=== PATIENT | female | born 1935 | race American Indian/Alaskan Native ===

== ENCOUNTER 2016-04-27 15:00 | Emergency (ER) | payer MEDICARE ==
[2016-04-27] MEDS ORDERED: TYLENOL PO ONE (20:16)
--- NOTE | 2016-04-27 20:28 | Emergency Department Report ---
ED Extremity Problem HPI - General Chief complaint: Extremity Problem,Nontraumatic Stated complaint: RT LEG PAIN Time Seen by Provider: 04/27/16 20:10 Source: patient Mode of arrival: Wheelchair Limitations: No Limitations - History of Present Illness Initial comments: 80-year-old female past medical history hypertension presents with complaint of 2 weeks of worsening right knee pain and right ankle pain. Patient states she had fall last week. Patient is ambulatory but states that her right ankle is bothering her and her right knee is bothering her as she walks. Denies any fever or chills no nausea no vomiting no lacerations. Patient is awake alert and oriented 3 ambulating with her cane without any assistance only complaining of mild to moderate pain in her right lower extremity knee and ankle joints. Patient states she has not been taking anything for pain MD Complaint: extremity pain Onset/Timin -: week(s) Location: right, lower extremity History of Same: No -: Yes myalgia Severity scale (0 -10): 6 Quality: aching Consistency: constant Associated Symptoms: denies other symptoms - Related Data Previous Rx's Medication Instructions Recorded Last Taken Type Docusate Sodium [Colace] 100 mg PO BID PRN #60 capsule 04/29/13 Unknown Rx HYDROcodone/APAP 5-325 [[place] 1 - 2 each PO Q6HR PRN #15 tablet 04/29/13 Unknown Rx 5/325 mg] Starch 51%(Nf) [Anusol] 1 each [place] BID PRN #10 supp.rect 04/29/13 Unknown Rx Acetaminophen [Acetaminophen TAB] 500 mg PO Q6HR PRN #30 tablet 04/27/16 Unknown Rx Allergies Allergy/AdvReac Type Severity Reaction Status Date / Time No Known Allergies Allergy Unverified 04/29/13 10:18 ED Review of Systems ROS: Stated complaint: RT LEG PAIN Other details as noted in HPI Constitutional: denies: chills, fever Eyes: denies: eye pain, eye discharge, vision change ENT: denies: ear pain, throat pain Respiratory: denies: cough, shortness of breath, wheezing Cardiovascular: denies: chest pain, palpitations Endocrine: no symptoms reported Gastrointestinal: denies: abdominal pain, nausea, diarrhea Genitourinary: denies: urgency, dysuria, discharge Musculoskeletal: as per HPI, arthralgia. denies: back pain, joint swelling Skin: denies: rash, lesions Neurological: denies: headache, weakness, paresthesias Psychiatric: denies: anxiety, depression Hematological/Lymphatic: denies: easy bleeding, easy bruising ED Past Medical Hx - Past Medical History Hx Hypertension: Yes Hx CVA: Yes Hx Diabetes: Yes Hx Arthritis: Yes Additional medical history: high cholesterol. CAD - Surgical History Hx Coronary Stent: Yes Hx Breast Surgery: Yes (right mastectomy) Additional Surgical History: hysterectomy - Social History Smoking Status: Former Smoker Substance Use Type: None - Medications Home Medications: Home Medications Medication Instructions Recorded Confirmed Last Taken Type Docusate Sodium [Colace] 100 mg PO BID PRN #60 capsule 04/29/13 Unknown Rx HYDROcodone/APAP 5-325 [[place] 1 - 2 each PO Q6HR PRN #15 tablet 04/29/13 Unknown Rx 5/325 mg] Starch 51%(Nf) [Anusol] 1 each [place] BID PRN #10 supp.rect 04/29/13 Unknown Rx Acetaminophen [Acetaminophen TAB] 500 mg PO Q6HR PRN #30 tablet 04/27/16 Unknown Rx ED Physical Exam - General Limitations: No Limitations General appearance: alert, in no apparent distress - Head Head exam: Present: atraumatic, normocephalic - Eye Eye exam: Present: normal appearance, PERRL, EOMI - ENT ENT exam: Present: mucous membranes moist - Neck Neck exam: Present: normal inspection - Respiratory Respiratory exam: Present: normal lung sounds bilaterally. Absent: respiratory distress - Cardiovascular Cardiovascular Exam: Present: regular rate, normal rhythm. Absent: systolic murmur, diastolic murmur, rubs, gallop - GI/Abdominal GI/Abdominal exam: Present: soft, normal bowel sounds - Extremities Exam Extremities exam: Present: normal inspection - Expanded Lower Extremity Exam Right Hip exam: Present: normal inspection, full ROM Upper Leg exam: Present: normal inspection, full ROM Knee exam: Present: normal inspection, full ROM (active and passive range of motion right knee fully intact flexion and extension and against resistance him and no erythema knee joint) Lower Leg exam: Present: normal inspection, full ROM Ankle exam: Present: normal inspection, full ROM Foot/Toe exam: Present: normal inspection, full ROM Gait: Positive: observed and normal - Back Exam Back exam: Present: normal inspection - Neurological Exam Neurological exam: Present: alert, oriented X3, CN II-XII intact, normal gait - Psychiatric Psychiatric exam: Present: normal affect, normal mood - Skin Skin exam: Present: warm, dry, intact, normal color. Absent: rash ED Course Vital Signs 04/27/16 16:04 Temperature 98.9 F Pulse Rate 87 Respiratory 20 Rate Blood Pressure 113/89 O2 Sat by Pulse 98 Oximetry ED Medical Decision Making - Medical Decision Making A/P: Right lower extremity pain knee and ankle, musculoskeletal pain 1-patient is fully ambulatory without assistance, using cane with minimal to no difficulty. No clinical signs of septic joint or gout no joint erythema range of motion active and passive fully intact all joints right lower extremity, no neurovascular compromise no signs of cellulitis, no pitting or peripheral edema or PVD ulcers visible on exam. Range of motion right ankle knee hip joint fully intact. Distal dorsalis pedis and posterior tibial pulses intact, distal sensation 2 point discrimination light touch fully intact. 2-Tylenol 500 mg when necessary for pain 3-follow up with primary care doctor and orthopedics 4-advised patient to return to the ED if she develops any fever or chills and ability to range her joints or severe difficulty ambulating, patient is ambulating well without assistance 5- x-rays reviewed with Dr. Trujillo, some osteoarthritic changes and right knee and ankle joint but no visible fractures Critical care attestation.: If time is entered above; I have spent that time in minutes in the direct care of this critically ill patient, excluding procedure time. ED Disposition Clinical Impression: Osteoarthritis Qualifiers: Osteoarthritis location: knee Osteoarthritis type: unspecified Laterality: right Qualified Code(s): M17.9 - Osteoarthritis of knee, unspecified Musculoskeletal leg pain Qualifiers: Laterality: right Qualified Code(s): M79.604 - Pain in right leg Disposition: DISCHARGED TO HOME OR SELFCARE Is pt being admited?: No Does the pt Need Aspirin: No Condition: Stable Instructions: Arthralgia (ED), Osteoarthritis (ED), Musculoskeletal Pain (ED) Prescriptions: Acetaminophen [Acetaminophen TAB] 500 mg PO Q6HR PRN #30 tablet PRN Reason: Pain Referrals: PRIMARY CARE, [Primary Care Provider] - 3-5 Days Time of Disposition: 21:17
[2016-04-27 22:00] VITALS: BP 110/88
--- NOTE | 2016-04-28 09:28 | XRay Report ---
RIGHT KNEE RADIOGRAPHS INDICATION: Knee pain, status post fall. COMPARISON: None similar. FINDINGS: AP and lateral right knee radiographs suggest degenerative spurring involving the medial and patellofemoral compartments as also some medial compartment narrowing. Intact overall articulation. Superior and inferior patellar spurring and enthesophytes as well. No large suprapatellar effusion. Some atherosclerotic calcifications. CONCLUSION: Right knee degenerative changes without acute bony abnormality, as described. Thank you for the opportunity to participate in this patient's care.
--- NOTE | 2016-04-28 09:43 | XRay Report ---
RIGHT ANKLE, 2 VIEWS: HISTORY: Ankle pain after fall. FINDINGS: Bone mineralization is within normal limits. No acute osseous findings or joint pathology is identified. There is mild diffuse soft tissue swelling. IMPRESSION: Soft tissue swelling. No acute osseous injury is detected.
== END 2016-04-27 22:05 | disposition home or self-care (01) ==
LOC: ED 15:00
DX: M17.9 Osteoarthritis of knee, unspecified (principal); M79.604 Pain in right leg; I10 Essential (primary) hypertension; E11.9 Type 2 diabetes mellitus without complications; M19.90 Unspecified osteoarthritis, unspecified site; E78.00 Pure hypercholesterolemia, unspecified; Z86.73 Personal history of transient ischemic attack (TIA), and cerebral infarction without residual deficits; I25.10 Atherosclerotic heart disease of native coronary artery without angina pectoris; Z90.710 Acquired absence of both cervix and uterus; Z90.89 Acquired absence of other organs; Z87.891 Personal history of nicotine dependence

== ENCOUNTER 2016-05-21 14:40 | Emergency (ER) | payer MEDICARE ==
[2016-05-22 02:52] LABS: Basophils % (Auto) 0.2 % (0.0-1.8); Eosinophils % (Auto) 1.1 % (0.0-4.3); Hematocrit 41.2 % (30.3-42.9); Hemoglobin 13.8 gm/dl (10.1-14.3); Mean Corpuscular HGB Conc 33 % (30-34); Mean Corpuscular Hemoglobin 32 pg (28-32); Mean Corpuscular Volume 95 fl (79-97); Platelet Count 180 K/mm3 (140-440); Red Blood Count 4.34 M/mm3 (3.65-5.03); Red Cell Distribution Width 12.8 % (13.2-15.2); White Blood Count 7.1 K/mm3 (4.5-11.0)
[2016-05-22 03:12] LABS: Anion Gap 17 mmol/L; BUN/Creatinine Ratio 16.25; Blood Urea Nitrogen 13 mg/dL (7-17); Calcium 9.5 mg/dL (8.4-10.2); Carbon Dioxide 26 mmol/L (22-30); Chloride 96.9 mmol/L (98-107); Glucose 114 mg/dL (65-100); Potassium 3.2 mmol/L (3.6-5.0); Sodium 137 mmol/L (137-145)
[2016-05-22] MEDS ORDERED: K-DUR PO ONE (03:37)
--- NOTE | 2016-05-22 03:38 | Cat Scan Report ---
FINAL REPORT PROCEDURE: CT HEAD/BRAIN WO CON TECHNIQUE: Computerized tomography of the head was performed without contrast material. HISTORY: tremor COMPARISON: No prior studies are available for comparison. FINDINGS: Skull and scalp: Normal. Paranasal sinuses: Normal. Ventricles and subarachnoid spaces: Normal. Cerebrum: No evidence of hemorrhage, acute infarction or mass . Cerebellum and brainstem: No evidence of hemorrhage, acute infarction or mass. Vasculature: Normal. Comments: None. IMPRESSION: There is no evidence of an acute intracranial process
[2016-05-22] MEDS ORDERED: ATIVAN PO ONE (03:59)
--- NOTE | 2016-05-22 03:59 | Emergency Department Report ---
ED General Adult HPI - General Chief complaint: Dizziness Stated complaint: SHAKING AND SWEATING Time Seen by Provider: 05/22/16 01:51 Source: patient Mode of arrival: Ambulatory Limitations: No Limitations - History of Present Illness Initial comments: 80 year old female the past medical history of CVA, arthritis, right mastectomy for breast cancer, diabetes, CAD, hypertension, and elevated cholesterol presents to the hospital complaints of shaking since last night. Patient having tremors and feeling lightheaded. Patient seems to think it is due to tramadol which began taking on May 03 for new diagnosis of arthritis. Patient states she has taken tramadol in the past without the side effects. She complains of generalized arthralgias rate is 7/10 in intensity. No complaints of chest pain, shortness of breath, nausea, vomiting, diarrhea, or abdominal pain. She denies family history of any movement disorders. Severity scale (0 -10): 3 - Related Data Previous Rx's Medication Instructions Recorded Last Taken Type Docusate Sodium [Colace] 100 mg PO BID PRN #60 capsule 04/29/13 Unknown Rx [place] 51%(Nf) [Anusol] 1 each [place] BID PRN #10 supp.rect 04/29/13 Unknown Rx Acetaminophen [Acetaminophen TAB] 500 mg PO Q6HR PRN #30 tablet 04/27/16 Unknown Rx HYDROcodone/APAP 5-325 [[place] 1 each PO Q6HR PRN #15 tablet 05/22/16 Unknown Rx 5-325 mg TAB] Potassium Chloride [K-Dur] 20 meq PO QDAY #4 tablet 05/22/16 Unknown Rx Allergies Allergy/AdvReac Type Severity Reaction Status Date / Time No Known Allergies Allergy Verified 05/21/16 15:08 ED Review of Systems ROS: Stated complaint: SHAKING AND SWEATING Other details as noted in HPI Comment: All other systems reviewed and negative Other: Constitutional: No fevers chills Eyes: No eye pain visual changes ENT: No ear pain or throat pain Neck: Denies pain Respiratory: Denies cough wheezing Cardiovascular: Denies chest pain, palpitations, syncope GI: Denies abdominal pain, nausea, vomiting, diarrhea : Denies dysuria Musculoskeletal: Denies back pain Skin: Denies rash, lesions, erythema Neurologic: Denies headache, numbness, weakness Psychiatric: Denies suicidal ideation, hallucinations ED Past Medical Hx - Past Medical History Hx Hypertension: Yes Hx CVA: Yes Hx Diabetes: Yes Hx of Cancer: Yes Hx Arthritis: Yes Additional medical history: high cholesterol. CAD - Surgical History Hx Coronary Stent: Yes Hx Breast Surgery: Yes (right mastectomy) Additional Surgical History: hysterectomy - Social History Smoking Status: Never Smoker Substance Use Type: None - Medications Home Medications: Home Medications Medication Instructions Recorded Confirmed Last Taken Type Docusate Sodium [Colace] 100 mg PO BID PRN #60 capsule 04/29/13 Unknown Rx [place] 51%(Nf) [Anusol] 1 each [place] BID PRN #10 supp.rect 04/29/13 Unknown Rx Acetaminophen [Acetaminophen TAB] 500 mg PO Q6HR PRN #30 tablet 04/27/16 Unknown Rx HYDROcodone/APAP 5-325 [[place] 1 each PO Q6HR PRN #15 tablet 05/22/16 Unknown Rx 5-325 mg TAB] Potassium Chloride [K-Dur] 20 meq PO QDAY #4 tablet 05/22/16 Unknown Rx ED Physical Exam - General Limitations: No Limitations - Other Other exam information: General: No limitations, patient is alert in no acute distress Head exam: Atraumatic, normocephalic Eyes exam: Normal appearance ENT: Moist mucous membrane, normal oropharynx Neck exam: Normal inspection, full range of motion, no meningismus nontender Respiratory exam: Clear to auscultation bilateral, no wheezes, rales, crackles Cardiovascular: Normal rate and rhythm, normal heart sounds Abdomen: Soft, nondistended, and nontender, with normal bowel sounds, no rebound, or guarding Extremity: Full range of motion normal inspection no deformity Back: Normal Inspection, full range of motion, no tenderness Neurologic: Alert, oriented x3, cranial nerves intact, no motor or sensory deficit. Patient has a mild hand tremor with her arms extended. Patient also has worsening tremor with [id number] function left greater than right. Psychiatric: normal affect, normal mood Skin: Warm, dry, intact ED Course Vital Signs 05/21/16 05/22/16 15:08 01:35 Temperature 98.4 F 99.2 F Pulse Rate 94 H 88 Respiratory 18 20 Rate Blood Pressure 136/85 Blood Pressure 158/94 [Left] O2 Sat by Pulse 100 98 Oximetry - Reevaluation(s) Reevaluation #1: 05/22/16 04:04 Patient declined offer for pain medication because she is afraid of possible side effects. Patient appears stable. Requesting medication for the tremor because she still feels like she shaking. Ativan 0.5 mg ordered and by mouth potassium for mild hypokalemia Reevaluation #2: 05/22/16 05:52 Patient reports feeling better after receiving Ativan and reports decrease in her tremor ED Medical Decision Making - Lab Data Result diagrams: 05/22/16 02:44 05/22/16 02:44 Lab Results 05/22/16 05/22/16 05/22/16 Range/Units 02:41 02:44 02:44 WBC 7.1 (4.5-11.0) K/mm3 RBC 4.34 (3.65-5.03) M/mm3 Hgb 13.8 (10.1-14.3) gm/dl Hct 41.2 (30.3-42.9) % MCV 95 (79-97) fl MCH 32 (28-32) pg MCHC 33 (30-34) % RDW 12.8 L (13.2-15.2) % Plt Count 180 (140-440) K/mm3 Lymph % (Auto) 20.1 (13.4-35.0) % [place] % (Auto) 8.8 H (0.0-7.3) % Eos % (Auto) 1.1 (0.0-4.3) % Baso % (Auto) 0.2 (0.0-1.8) % Lymph # 1.4 (1.2-5.4) K/mm3 [place] # 0.6 (0.0-0.8) K/mm3 Eos # 0.1 (0.0-0.4) K/mm3 Baso # 0.0 (0.0-0.1) K/mm3 Seg Neutrophils % 69.8 (40.0-70.0) % Seg Neutrophils # 4.9 (1.8-7.7) K/mm3 Sodium 137 (137-145) mmol/L Potassium 3.2 L (3.6-5.0) mmol/L Chloride 96.9 L (98-107) mmol/L Carbon Dioxide 26 (22-30) mmol/L Anion Gap 17 mmol/L BUN 13 (7-17) mg/dL Creatinine 0.8 (0.7-1.2) mg/dL Estimated GFR > 60 ml/min BUN/Creatinine Ratio 16.25 % Glucose 114 H (65-100) mg/dL POC Glucose 102 (70-105) Calcium 9.5 (8.4-10.2) mg/dL Magnesium 2.0 (1.7-2.3) mg/dL - EKG Data -: EKG Interpreted by Me (sinus rate 90, left bundle branch, LAD, left atrial enlargement) - EKG Data When compared to previous EKG there are: changes noted (07/15/2011 no left bundle at that time ) - Medical Decision Making Plan to discharge patient home with instructions to discontinue the tramadol. She will also receive several days of potassium supplementation for mild hypokalemia. PMD and neurology follow-up will be encouraged to rule out movement disorder and to evaluate his symptoms after discontinuing and tramadol. - Differential Diagnosis electrolyte abnormality, movement disorder, CVA, medication reaction Critical Care Time: No Critical care attestation.: If time is entered above; I have spent that time in minutes in the direct care of this critically ill patient, excluding procedure time. ED Disposition Clinical Impression: Tremor, Medication reaction, Hypokalemia Disposition: DISCHARGED TO HOME OR SELFCARE Is pt being admited?: No Does the pt Need Aspirin: No Condition: Stable Instructions: Hypokalemia (ED), Adverse Drug Reaction (ED) Additional Instructions: Stop the tramadol. Take the hydrocodone prescribed as needed for pain. Most common side effects of [place] are drowsiness and constipation. Take stool softeners as needed. Do not drive while taking this medication. Your potassium was low today. Take the potassium tablets as prescribed and you may take a banana a day to help keep your potassium at normal level. Follow-up with the physician and the neurologist provided for further workup and evaluation to rule out movement disorder. Prescriptions: HYDROcodone/APAP 5-325 [[place] 5-325 mg TAB] 1 each PO Q6HR PRN #15 tablet PRN Reason: Pain Potassium Chloride [K-Dur] 20 meq PO QDAY #4 tablet Referrals: PRIMARY CARE, [Primary Care Provider] - 2-3 Days [facility] MD [Staff Physician] - 3-5 Days (Neurologist) Time of Disposition: 05:53
[2016-05-22 06:58] VITALS: BP 126/86
== END 2016-05-22 07:00 | disposition home or self-care (01) ==
LOC: ED 14:40
DX: E87.6 Hypokalemia (principal); R25.1 Tremor, unspecified; I10 Essential (primary) hypertension; I63.9 Cerebral infarction, unspecified; E11.9 Type 2 diabetes mellitus without complications; M19.90 Unspecified osteoarthritis, unspecified site; E78.00 Pure hypercholesterolemia, unspecified; I25.10 Atherosclerotic heart disease of native coronary artery without angina pectoris; Z90.11 Acquired absence of right breast and nipple; Z85.9 Personal history of malignant neoplasm, unspecified
CPT/HCPCS: 36415; 70450; 80048; 82962; 83735; 85025; 93005; 93010

== ENCOUNTER 2017-10-01 16:51 | Emergency (ER) | payer MEDICARE ==
[2017-10-01 17:15] VITALS: BP 106/56
--- NOTE | 2017-10-01 23:03 | Emergency Department Report ---
ED Fall HPI - General Chief Complaint: Neck Pain/Injury Stated Complaint: NECK PAIN Time Seen by Provider: 10/01/17 22:49 Source: patient Mode of arrival: Ambulatory - History of Present Illness Initial Comments: Patient is a 51 years old female with history of coronary artery disease. Patient presented to the ER complaining of neck pain and bilateral knee pain and also right ankle pain. Patient stated that she fell 2 weeks ago while she is coming from her garage, tripped, landed on her knees. Patient denied any loss of consciousness at that time. She stated that she did not have any pain at that time bet for the last 4-5 days she started having pain in her neck bilateral knees and right ankle. Patient denied any weakness numbness or tingling sensation. No bowel or bladder incontinence. Patient denied any chest pain. MD Complaint: fall -: Sudden Fall From: standing When Fall Occurred: other (2 weeks ago) Fall Witnessed: no Place Fall Occurred: home Loss of Consciousness: none Prolonged Down Time?: no Symptoms Prior to Fall: none Location: neck Location - Extremities: Left: Knee, Right: Knee, Ankle Severity: moderate Severity scale (0 -10): 4 Quality: sharp Context: tripped/slipped Associated Symptoms: neck pain. denies: headache, numbness, weakness, chest paint, shortness of breath, abdominal pain, hematuria, unable to walk, lightheaded, vertigo, confusion - Related Data Home Medications Medication Instructions Recorded Confirmed Last Taken Gabapentin [Neurontin] 300 mg PO TID 10/31/16 11/01/16 1 Day Ago ~10/31/16 Previous Rx's Medication Instructions Recorded Last Taken Type Docusate Sodium [Colace CAP] 100 mg PO BID PRN #60 capsule 04/29/13 1 Day Ago Rx ~10/30/16 Aspirin EC [Aspirin Enteric Coated 81 mg PO QDAY #30 tablet 11/03/16 Unknown Rx TAB] AtorvaSTATin [Lipitor] 80 mg PO QHS #30 tablet 11/03/16 Unknown Rx Clopidogrel [Plavix] 75 mg PO QDAY #30 tablet 11/03/16 Unknown Rx Furosemide [Lasix] 20 mg PO QDAY #30 tablet 11/03/16 Unknown Rx ISOSORBIDE MONOnitrate [Imdur ER] 30 mg PO QDAY #30 tablet 11/03/16 Unknown Rx Lisinopril [Zestril TAB] 2.5 mg PO QDAY #30 tablet 11/03/16 Unknown Rx Metoprolol Xl [Metoprolol 50 mg PO QDAY #30 tablet 11/03/16 Unknown Rx SUCCINATE ER TAB] Allergies Allergy/AdvReac Type Severity Reaction Status Date / Time No Known Allergies Allergy Verified 10/01/17 17:09 ED Review of Systems ROS: Stated complaint: NECK PAIN Other details as noted in HPI Comment: All other systems reviewed and negative Constitutional: denies: chills, fever Respiratory: denies: cough, orthopnea, shortness of breath, SOB with exertion Cardiovascular: denies: chest pain, palpitations Gastrointestinal: denies: abdominal pain, nausea, vomiting, diarrhea, constipation, hematemesis, hematochezia Musculoskeletal: denies: back pain Neurological: denies: headache, weakness, numbness, paresthesias, confusion, abnormal gait, vertigo ED Past Medical Hx - Past Medical History Hx Hypertension: Yes Hx CVA: Yes Hx Congestive Heart Failure: Yes Hx Diabetes: Yes Hx Arthritis: Yes Additional medical history: high cholesterol. CAD - Surgical History Hx Coronary Stent: Yes Hx Breast Surgery: Yes (right mastectomy) Additional Surgical History: hysterectomy - Social History Smoking Status: Former Smoker - Medications Home Medications: Home Medications Medication Instructions Recorded Confirmed Last Taken Type Docusate Sodium [Colace CAP] 100 mg PO BID PRN #60 capsule 04/29/13 10/31/16 1 Day Ago Rx ~10/30/16 Gabapentin [Neurontin] 300 mg PO TID 10/31/16 11/01/16 1 Day Ago History ~10/31/16 Aspirin EC [Aspirin Enteric Coated 81 mg PO QDAY #30 tablet 11/03/16 Unknown Rx TAB] AtorvaSTATin [Lipitor] 80 mg PO QHS #30 tablet 11/03/16 Unknown Rx Clopidogrel [Plavix] 75 mg PO QDAY #30 tablet 11/03/16 Unknown Rx Furosemide [Lasix] 20 mg PO QDAY #30 tablet 11/03/16 Unknown Rx ISOSORBIDE MONOnitrate [Imdur ER] 30 mg PO QDAY #30 tablet 11/03/16 Unknown Rx Lisinopril [Zestril TAB] 2.5 mg PO QDAY #30 tablet 11/03/16 Unknown Rx Metoprolol Xl [Metoprolol 50 mg PO QDAY #30 tablet 11/03/16 Unknown Rx SUCCINATE ER TAB] ED Physical Exam - General Limitations: No Limitations General appearance: alert, in no apparent distress - Head Head exam: Present: atraumatic, normocephalic, normal inspection - Eye Eye exam: Present: normal appearance - ENT ENT exam: Present: normal exam, normal orophraynx, mucous membranes moist - Neck Neck exam: Present: normal inspection, full ROM. Absent: tenderness, meningismus, lymphadenopathy, thyromegaly - Respiratory Respiratory exam: Present: normal lung sounds bilaterally. Absent: respiratory distress, wheezes, rales, rhonchi, stridor, chest wall tenderness, accessory muscle use, decreased breath sounds, prolonged expiratory - Cardiovascular Cardiovascular Exam: Present: regular rate, normal rhythm, normal heart sounds - GI/Abdominal GI/Abdominal exam: Present: soft, normal bowel sounds. Absent: distended, tenderness, guarding, rebound, rigid, organomegaly, mass, bruit, pulsatile mass , hernia - Extremities Exam Extremities exam: Present: normal inspection, full ROM, normal capillary refill. Absent: tenderness, pedal edema, joint swelling, calf tenderness - Back Exam Back exam: Present: normal inspection. Absent: full ROM, tenderness, CVA tenderness (R), CVA tenderness (L), muscle spasm, paraspinal tenderness, vertebral tenderness, rash noted - Neurological Exam Neurological exam: Present: alert, oriented X3, CN II-XII intact, normal gait - Skin Skin exam: Present: warm, intact, normal color ED Course Vital Signs 10/01/17 17:09 Temperature 98.6 F Pulse Rate 83 Respiratory 20 Rate Blood Pressure 106/56 O2 Sat by Pulse 96 Oximetry ED Medical Decision Making - Radiology Data Radiology results: report reviewed Referring Physician: WILBERT HERNANDEZ Patient Name: TRE CORRIGAN Date of : 1935 Sex: Female Report Date: 2017-10-02 Report Status: Finalized Findings [facility] [address] [place] [address] Cat Scan Report Signed Patient: TRE CORRIGAN MR#: [id number] : 1935 Acct:[id number] Age/Sex: 82 / F ADM Date: 10/01/17 Loc: ED Attending Dr: Ordering Physician: WILBERT HERNANDEZ Date of Service: 10/01/17 Procedure(s): CT cervical spine wo con Accession Number(s): [id number] cc: WILBERT HERNANDEZ FINAL REPORT EXAM: CT CERVICAL SPINE WO CON HISTORY: NECK INJURY TECHNIQUE: CT evaluation was performed of the cervical spine without the use of intravenous contrast administration. Coronal and sagittal imaging also provided for interpretation. PRIORS: None. FINDINGS: Spinal alignment: There is mild anterolisthesis of C3 relative to C4 and loss of the usual cervical lordosis. Multilevel advanced cervical degenerative changes are present with bridging osteophytes anteriorly at C2-C3 and bulky osteophytes at C4-C5, C5-C6 and C6-C7. There is additional mild calcification of the posterior longitudinal ligament at C5-C6 vertebral level. Posterior elements are intact noting multilevel degenerative changes. 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 Atherosclerotic vascular calcifications within carotid and vertebral arteries. Probable left hemithyroidectomy changes. Small cystic changes are noted in the right thyroid gland. There is no prevertebral soft tissue swelling or pathologic fluid collection. IMPRESSION: No identified acute fracture is or dislocation. No significant prevertebral soft tissue swelling. Multilevel advanced degenerative changes throughout the cervical spine, detailed above. Transcribed By: DT Dictated By: SABA ESQUIVEL DO Electronically Authenticated By: SABA ESQUIVEL DO Signed Date/Time: 10/02/17 001 Referring Physician: WILBERT HERNANDEZ Patient Name: TRE CORRIGAN Date of : 1935 Sex: Female Report Date: 2017-10-02 Report Status: Finalized Findings [facility] [address] [place] [address] XRay Report Signed Patient: TRE CORRIGAN MR#: [id number] : 1935 Acct:[id number] Age/Sex: 82 / F ADM Date: 10/01/17 Loc: ED Attending Dr: Ordering Physician: WILBERT HERNANDEZ Date of Service: 10/01/17 Procedure(s): XR knee BILAT 3V Accession Number(s): [id number] cc: WILBERT HERNANDEZ Fluoro Time In Minutes: FINAL REPORT EXAM: XR KNEE BILAT 3V HISTORY: BILAT KNEE PAIN POST FALL TECHNIQUE: Six views of bilateral knees: AP, oblique and lateral projections. PRIORS: None. FINDINGS: Right knee: No acute fracture or dislocation. Mild, tricompartment degenerative changes evidenced by marginal osteophytes. There is no significant joint effusion. Atherosclerotic vascular calcifications are present. Left knee: There is no acute fracture or dislocation. Mild, tricompartment degenerative changes are noted. There is no significant joint effusion. Small suprapatellar enthesophytes are noted. Atherosclerotic vascular calcifications are present. IMPRESSION: No acute osseous abnormality involving either knee. Mild, tricompartment degenerative changes of bilateral knees. Atherosclerotic vascular calcifications. Transcribed By: DT Dictated By: SABA ESQUIVEL DO Electronically Authenticated By: SABA ESQUIVEL DO Signed Date/Time: 10/02/17 0000 DD/ 0000 TD/TT: 10/02/17 0000 DD/ 0016 TD/TT: 10/02/17 0016 Referring Physician: WILBERT HERNANDEZ Patient Name: TRE CORRIGAN Date of : 1935 Sex: Female Report Date: 2017-10-02 Report Status: Finalized Findings [facility] [address] [place] [address] XRay Report Signed Patient: TRE CORRIGAN MR#: [id number] : 1935 Acct:[id number] Age/Sex: 82 / F ADM Date: 10/01/17 Loc: ED Attending Dr: Ordering Physician: WILBERT HERNANDEZ Date of Service: 10/01/17 Procedure(s): XR ankle 3+V RT Accession Number(s): [id number] cc: WILBERT HERNANDEZ Fluoro Time In Minutes: FINAL REPORT EXAM: XR ANKLE 3+V RT HISTORY: RT ANKLE PAIN POST FALL TECHNIQUE: Three views of the right ankle: AP, oblique and lateral projections. PRIORS: None. FINDINGS: No discrete fracture line identified. There is mild bimalleolar soft tissue swelling. No large joint effusion. Moderate sized calcaneal enthesophytes (heel spurs). The ankle mortise appears congruent and there is no osteochondral injury of the talar dome. Atherosclerotic vascular calcifications are present. IMPRESSION: No acute fracture identified. Mild, bimalleolar soft tissue swelling. Atherosclerotic vascular calcifications. Transcribed By: DT Dictated By: SABA ESQUIVEL DO Electronically Authenticated By: SABA ESQUIVEL DO Signed Date/Time: 10/02/174 DD/ TD/TT: 10/02/174 Critical care attestation.: If time is entered above; I have spent that time in minutes in the direct care of this critically ill patient, excluding procedure time. ED Disposition Clinical Impression: Neck pain, Contusion, Fall Disposition: DC-01 TO HOME OR SELFCARE Is pt being admited?: No Condition: Stable Instructions: Fall Prevention (ED), Fall Prevention for Older Adults (ED), Contusion in Adults (ED) Referrals: PRIMARY CARE, [Primary Care Provider] - 3-5 Days
--- NOTE | 2017-10-02 00:05 | XRay Report ---
FINAL REPORT EXAM: XR KNEE BILAT 3V HISTORY: BILAT KNEE PAIN POST FALL TECHNIQUE: Six views of bilateral knees: AP, oblique and lateral projections. PRIORS: None. FINDINGS: Right knee: No acute fracture or dislocation. Mild, tricompartment degenerative changes evidenced by marginal osteophytes. There is no significant joint effusion. Atherosclerotic vascular calcifications are present. Left knee: There is no acute fracture or dislocation. Mild, tricompartment degenerative changes are noted. There is no significant joint effusion. Small suprapatellar enthesophytes are noted. Atherosclerotic vascular calcifications are present. IMPRESSION: No acute osseous abnormality involving either knee. Mild, tricompartment degenerative changes of bilateral knees. Atherosclerotic vascular calcifications.
--- NOTE | 2017-10-02 00:09 | XRay Report ---
FINAL REPORT EXAM: XR ANKLE 3+V RT HISTORY: RT ANKLE PAIN POST FALL TECHNIQUE: Three views of the right ankle: AP, oblique and lateral projections. PRIORS: None. FINDINGS: No discrete fracture line identified. There is mild bimalleolar soft tissue swelling. No large joint effusion. Moderate sized calcaneal enthesophytes (heel spurs). The ankle mortise appears congruent and there is no osteochondral injury of the talar dome. Atherosclerotic vascular calcifications are present. IMPRESSION: No acute fracture identified. Mild, bimalleolar soft tissue swelling. Atherosclerotic vascular calcifications.
--- NOTE | 2017-10-02 00:20 | Cat Scan Report ---
FINAL REPORT EXAM: CT CERVICAL SPINE WO CON HISTORY: NECK INJURY TECHNIQUE: CT evaluation was performed of the cervical spine without the use of intravenous contrast administration. Coronal and sagittal imaging also provided for interpretation. PRIORS: None. FINDINGS: Spinal alignment: There is mild anterolisthesis of C3 relative to C4 and loss of the usual cervical lordosis. Multilevel advanced cervical degenerative changes are present with bridging osteophytes anteriorly at C2-C3 and bulky osteophytes at C4-C5, C5-C6 and C6-C7. There is additional mild calcification of the posterior longitudinal ligament at C5-C6 vertebral level. Posterior elements are intact noting multilevel degenerative changes. 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 Atherosclerotic vascular calcifications within carotid and vertebral arteries. Probable left hemithyroidectomy changes. Small cystic changes are noted in the right thyroid gland. There is no prevertebral soft tissue swelling or pathologic fluid collection. IMPRESSION: No identified acute fracture is or dislocation. No significant prevertebral soft tissue swelling. Multilevel advanced degenerative changes throughout the cervical spine, detailed above.
== END 2017-10-02 00:35 | disposition home or self-care (01) ==
LOC: ED 16:51
DX: S10.93XA Contusion of unspecified part of neck, initial encounter (principal); M25.562 Pain in left knee; M25.561 Pain in right knee; M25.571 Pain in right ankle and joints of right foot; W01.0XXA Fall on same level from slipping, tripping and stumbling without subsequent striking against object, initial encounter; Y93.89 Activity, other specified; Y92.89 Other specified places as the place of occurrence of the external cause; Y99.8 Other external cause status
CPT/HCPCS: 72125; 99284

== ENCOUNTER 2020-01-03 12:15 | Emergency (ER) | payer MEDICARE ==
[2020-01-03] MEDS ORDERED: ASPIRIN 325 MG TAB PO ONE (12:27)
--- NOTE | 2020-01-03 13:35 | XRay Report ---
CHEST 1 VIEW 01/03/2020 1:11 PM INDICATION / CLINICAL INFORMATION: Chest Pain. COMPARISON: Chest one view from 09/12/2019. FINDINGS: SUPPORT DEVICES: None. HEART / MEDIASTINUM: Stable. LUNGS / PLEURA: The left hemidiaphragm is similarly elevated with probable mild left basilar atelecta sis versus scarring. The lungs are otherwise clear. No significant pleural effusion. No pneumothorax. ADDITIONAL FINDINGS: The bones are unchanged. IMPRESSION: 1. No acute abnormality of the chest or significant interval changes. Signer Name: Tushar Bae MD Signed: 01/03/2020 1:31 PM Workstation Name: [id number]
[2020-01-03 14:42] LABS: Basophils % (Auto) 0.2 % (0.0-1.8); Hematocrit 40.5 % (30.3-42.9); Hemoglobin 13.6 gm/dl (10.1-14.3); Lymphocytes # (Auto) 0.9 K/mm3 (1.2-5.4); Lymphocytes % (Auto) 22.7 % (13.4-35.0); Mean Corpuscular HGB Conc 34 % (30-34); Mean Corpuscular Volume 102 fl (79-97); Monocytes # (Auto) 0.3 K/mm3 (0.0-0.8); Monocytes % (Auto) 7.6 % (0.0-7.3); Platelet Count 178 K/mm3 (140-440); Red Blood Count 3.98 M/mm3 (3.65-5.03); Red Cell Distribution Width 13.2 % (13.2-15.2)
[2020-01-03 14:51] LABS: Blood Urea Nitrogen TNR mg/dL (7-17)
[2020-01-03 14:52] LABS: BUN/Creatinine Ratio TNR; Calcium TNR mg/dL (8.4-10.2)
[2020-01-03 16:57] LABS: BUN/Creatinine Ratio 14; Blood Urea Nitrogen 11 mg/dL (7-17); Calcium 9.5 mg/dL (8.4-10.2); Hemolysis Index 40
--- NOTE | 2020-01-03 18:02 | Emergency Department Report ---
ED Shortness of Breath HPI - General Chief Complaint: Dyspnea/Respdistress Stated Complaint: DIFFICULTY BREATHING Time Seen by Provider: 01/03/20 17:59 Source: patient Mode of arrival: Ambulatory Limitations: No Limitations - History of Present Illness Initial Comments: Ms. Cox is a pleasant 84-year-old F [place] female with a past medical history of congestive heart failure, DM, hypertension. Patient has a EF of 15 to 20% has AICD implanted. Patient is presenting with shortness of breath for the past 3 to 4 days. Patient states is intermittent but can last up to several hours at a time. Is accompanied with heavy sensation in the chest and she also has some pain when she takes a deep breath. She denies cough cold congestion fevers or chills. Patient states that she sometimes it is short of breath with exertion. She denies diaphoresis nausea vomiting or diarrhea. 09/13/19: Negative Lexiscan EKG but nondiagnostic left bundle. No significant stress-induced ischemia present. Dilated left ventricle was small mild fixed inferior lateral defect seen in the inferior lateral region. Normal perfusion anterior, apical, septal regions. Echo done 12/2018 showed EF 15-20%, mod LVH, grade I diastolic dysfunction, mod MR, mild TR, trace circumferential pericardial effusion. LHC done 10/2016 showed calcified, ostial stenosis of LAD 30-50%, EF 15-20%. Pt was recommended CT surgical assessment as outpatient, with a myocardial viabilit y study as prelude to possible surgical revascularization. It does not appear that pt was evaluated by CT surgery after that discharge. AMI r/o. Plan for lexiscan MPI stress test in AM. NPO after MN. Resume home cardiac regimen. Pt has h/o chronic HFrEF, no current clinical evidence of acutely decompensated HF. 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 She would like to address AICD candidacy as OP with her primary clinical specialist. - Related Data Home Medications Medication Instructions Recorded Confirmed Last Taken Gabapentin 300 mg PO TID 10/31/16 11/01/16 1 Day Ago ~10/31/16 Previous Rx's Medication Instructions Recorded Last Taken Type Docusate Sodium [Colace CAP] 100 mg PO BID PRN #60 capsule 04/29/13 1 Day Ago Rx ~10/30/16 Aspirin EC [Halfprin EC] 81 mg PO QDAY #30 tablet 11/03/16 Unknown Rx AtorvaSTATin [Lipitor] 80 mg PO QHS #30 tablet 11/03/16 Unknown Rx Clopidogrel [Plavix] 75 mg PO QDAY #30 tablet 11/03/16 Unknown Rx Furosemide [Lasix TAB] 20 mg PO QDAY #30 tablet 11/03/16 Unknown Rx ISOSORBIDE MONOnitrate [Imdur ER] 30 mg PO QDAY #30 tablet 11/03/16 Unknown Rx Ondansetron [Zofran ODT TAB] 4 mg PO Q8HR PRN #14 tab.rapdis 10/02/17 Unknown Rx traMADoL [Ultram 50 MG tab] 50 mg PO Q6HR PRN #14 tablet 10/02/17 Unknown Rx Nitroglycerin [Nitrostat] 0.4 mg SL .Q5MIN PRN #30 tablet 09/13/19 Unknown Rx Ranolazine [Ranexa] 500 mg PO BID #60 tab.er.12h 09/13/19 Unknown Rx Sacubitril/Valsartan [Entresto 24 1 each PO BID #60 tablet 09/13/19 Unknown Rx - 26 mg] carvediloL [Coreg] 3.125 mg PO BID #60 tablet 09/13/19 Unknown Rx Allergies Allergy/AdvReac Type Severity Reaction Status Date / Time No Known Allergies Allergy Verified 10/01/17 17:09 ED Review of Systems ROS: Stated complaint: DIFFICULTY BREATHING Other details as noted in HPI Comment: All other systems reviewed and negative ED Past Medical Hx - Past Medical History Hx Hypertension: Yes Hx CVA: Yes Hx Congestive Heart Failure: Yes Hx Diabetes: Yes Hx Arthritis: Yes Additional medical history: high cholesterol. CAD - Surgical History Hx Coronary Stent: Yes Hx Breast Surgery: Yes (right mastectomy) Additional Surgical History: hysterectomy - Social History Smoking Status: Never Smoker - Medications Home Medications: Home Medications Medication Instructions Recorded Confirmed Last Taken Type Docusate Sodium [Colace CAP] 100 mg PO BID PRN #60 capsule 04/29/13 10/31/16 1 Day Ago Rx ~10/30/16 Gabapentin 300 mg PO TID 10/31/16 11/01/16 1 Day Ago History ~10/31/16 Aspirin EC [Halfprin EC] 81 mg PO QDAY #30 tablet 11/03/16 Unknown Rx AtorvaSTATin [Lipitor] 80 mg PO QHS #30 tablet 11/03/16 Unknown Rx Clopidogrel [Plavix] 75 mg PO QDAY #30 tablet 11/03/16 Unknown Rx Furosemide [Lasix TAB] 20 mg PO QDAY #30 tablet 11/03/16 Unknown Rx ISOSORBIDE MONOnitrate [Imdur ER] 30 mg PO QDAY #30 tablet 11/03/16 Unknown Rx Ondansetron [Zofran ODT TAB] 4 mg PO Q8HR PRN #14 tab.rapdis 10/02/17 Unknown Rx traMADoL [Ultram 50 MG tab] 50 mg PO Q6HR PRN #14 tablet 10/02/17 Unknown Rx Nitroglycerin [Nitrostat] 0.4 mg SL .Q5MIN PRN #30 tablet 09/13/19 Unknown Rx Ranolazine [Ranexa] 500 mg PO BID #60 tab.er.12h 09/13/19 Unknown Rx Sacubitril/Valsartan [Entresto 24 1 each PO BID #60 tablet 09/13/19 Unknown Rx - 26 mg] carvediloL [Coreg] 3.125 mg PO BID #60 tablet 09/13/19 Unknown Rx ED Physical Exam - General Limitations: No Limitations General appearance: alert, in no apparent distress - Head Head exam: Present: atraumatic, normocephalic - Eye Eye exam: Present: normal appearance, PERRL, EOMI - ENT ENT exam: Present: mucous membranes moist - Neck Neck exam: Present: normal inspection - Respiratory Respiratory exam: Present: normal lung sounds bilaterally. Absent: respiratory distress, wheezes, rales, rhonchi - Cardiovascular Cardiovascular Exam: Present: normal rhythm, tachycardia. Absent: systolic murmur, diastolic murmur, rubs, gallop - GI/Abdominal GI/Abdominal exam: Present: soft, normal bowel sounds. Absent: distended, tenderness, guarding, rebound - Extremities Exam Extremities exam: Present: normal inspection - Back Exam Back exam: Present: normal inspection - Neurological Exam Neurological exam: Present: alert, oriented X3 - Psychiatric Psychiatric exam: Present: normal affect, normal mood - Skin Skin exam: Present: warm, dry, intact, normal color. Absent: rash ED Course Vital Signs 01/03/20 01/03/20 12:21 18:36 Temperature 98.1 F Pulse Rate 98 H Respiratory 18 18 Rate Blood Pressure 164/101 O2 Sat by Pulse 98 100 Oximetry - Reevaluation(s) Reevaluation #1: 01/03/20 18:13 Because of the patient's age relatively sedentary lifestyle and tachycardia with shortness of breath a CT angiogram is been ordered ED Medical Decision Making - Lab Data Result diagrams: 01/03/20 13:33 01/03/20 18:18 Lab Results 01/03/20 01/03/20 01/03/20 Range/Units 13:33 13:33 16:11 WBC 4.1 L (4.5-11.0) K/mm3 RBC 3.98 (3.65-5.03) M/mm3 Hgb 13.6 (10.1-14.3) gm/dl Hct 40.5 (30.3-42.9) % MCV 102 H (79-97) fl MCH 34 H (28-32) pg MCHC 34 (30-34) % RDW 13.2 (13.2-15.2) % Plt Count 178 (140-440) K/mm3 Lymph % (Auto) 22.7 (13.4-35.0) % Williams % (Auto) 7.6 H (0.0-7.3) % Eos % (Auto) 1.0 (0.0-4.3) % Baso % (Auto) 0.2 (0.0-1.8) % Lymph # (Auto) 0.9 L (1.2-5.4) K/mm3 Williams # (Auto) 0.3 (0.0-0.8) K/mm3 Eos # (Auto) 0.0 (0.0-0.4) K/mm3 Baso # (Auto) 0.0 (0.0-0.1) K/mm3 Seg Neutrophils % 68.5 (40.0-70.0) % Seg Neutrophils # 2.8 (1.8-7.7) K/mm3 Sodium TNR 141 Potassium TNR 3.8 Chloride TNR 101.4 Carbon Dioxide TNR 25 Anion Gap TNR 18 BUN TNR 11 Creatinine TNR 0.8 Estimated GFR TNR > 60 BUN/Creatinine Ratio TNR 14 Glucose TNR 114 H Calcium TNR 9.5 Troponin T TNR < 0.010 - EKG Data -: EKG Interpreted by Me - EKG Data 01/04/20 01:14 EKG shows sinus tachycardia 108. [place] is leftward there is a left bundle branch block present. Patient has ST elevation secondary to IVCD. T waves inverted laterally. No significant changes since the EKG from 09/12/2019 - Radiology Data Fluoro Time In Minutes: CHEST 1 VIEW 01/03/2020 1:11 PM INDICATION / CLINICAL INFORMATION: Chest Pain. COMPARISON: Chest one view from 09/12/2019. FINDINGS: SUPPORT DEVICES: None. HEART / MEDIASTINUM: Stable. LUNGS / PLEURA: The left hemidiaphragm is similarly elevated with probable mild left basilar atelectasis versus scarring. The lungs are otherwise clear. No significant pleural effusion. No pneumothorax. ADDITIONAL FINDINGS: The bones are unchanged. IMPRESSION: 1. No acute abnormality of the chest or significant interval changes. Signer Name: Tushar Bae MD Signed: 01/03/2020 1:31 PM Workstation Name: [id number] Ordering Physician: RINKU RUFFIN MD Date of Service: 01/03/20 Procedure(s): NM perfusion only lung scan Accession Number(s): [id number] cc: RINKU RUFFIN MD Nuclear medicine perfusion lung scan Indication: Shortness of breath Technique: 5.0 mCi of Tc 99m MAA were given by IV. Findings: Comparison with chest radiograph from one day prior. Perfusion images are unremarkable; specifically, no wedge-shaped, pleural-based, segmental defects are seen. Impression: Normal perfusion scan. Signer Name: Dago Ibarra MD Signed: 01/04/2020 12:51 AM Workstation Name: [id number] - Medical Decision Making Patient arrived with chest pain shortness of breath and tachycardia. Patient was given a dose of Lasix and her heart rate improved she was comfortable not requiring any oxygen. She was able to diurese. Chest x-ray is consistent with a very small amount of pulmonary vascular congestion although the radiology report show there was no change from previous x-rays. BNP was elevated. VQ scan showed no evidence of pulmonary embolism the patient will be discharged home. Patient can double her days of Lasix for the next 2 days. Critical care attestation.: If time is entered above; I have spent that time in minutes in the direct care of this critically ill patient, excluding procedure time. ED Disposition Clinical Impression: SOB (shortness of breath), CHF (congestive heart failure) Disposition: - TO HOME OR SELFCARE Is pt being admited?: No Does the pt Need Aspirin: No Condition: Stable Additional Instructions: Please double your dose of Lasix for the next 2 days Time of Disposition: 01:15
[2020-01-03 19:12] LABS: Alanine Aminotransferase 20 units/L (7-56); Albumin 3.9 g/dL (3.9-5); BUN/Creatinine Ratio 16; Blood Urea Nitrogen 11 mg/dL (7-17); Calcium 9.7 mg/dL (8.4-10.2); Hemolysis Index 26
[2020-01-03] MEDS ORDERED: FUROSEMIDE 40 MG/4 ML INJ IV ONE (19:18)
--- NOTE | 2020-01-04 00:56 | Nuclear Medicine Report ---
Nuclear medicine perfusion lung scan Indication: Shortness of breath Technique: 5.0 mCi of Tc 99m MAA were given by IV. Findings: Comparison with chest radiograph from one day prior. Perfusion images are unremarkable; specifically, no wedge-shaped, pleural-based, segmental defects ar e seen. Impression: Normal perfusion scan. Signer Name: Dago Ibarra MD Signed: 01/04/2020 12:51 AM Workstation Name: [id number]
[2020-01-04 01:49] VITALS: BP 125/78
== END 2020-01-04 01:50 | disposition home or self-care (01) ==
LOC: ED 12:15
DX: I11.0 Hypertensive heart disease with heart failure (principal); I50.9 Heart failure, unspecified; M13.88 Other specified arthritis, other site; E11.9 Type 2 diabetes mellitus without complications; E78.00 Pure hypercholesterolemia, unspecified; Z90.710 Acquired absence of both cervix and uterus; Z98.890 Other specified postprocedural states; Z79.899 Other long term (current) drug therapy
CPT/HCPCS: 36415; 71045; 78580; 80048; 80053; 83880; 84484; 85025; 93005; 96374; 99284; A9540; J1940

== ENCOUNTER 2020-05-09 14:04 | Inpatient (IN) | payer MEDICARE ==
[2020-05-09] MEDS ORDERED: ASPIRIN 325 MG TAB PO ONE (14:46)
[2020-05-09 15:25] LABS: Basophils % (Auto) 0.5 % (0.0-1.8); Eosinophils % (Auto) 0.8 % (0.0-4.3); Hematocrit 39.2 % (30.3-42.9); Hemoglobin 13.5 gm/dl (10.1-14.3); Lymphocytes # (Auto) 1.2 K/mm3 (1.2-5.4); Lymphocytes % (Auto) 38.8 % (13.4-35.0); Mean Corpuscular HGB Conc 34 % (30-34); Mean Corpuscular Volume 98 fl (79-97); Monocytes # (Auto) 0.3 K/mm3 (0.0-0.8); Monocytes % (Auto) 9.9 % (0.0-7.3); Platelet Count 178 K/mm3 (140-440); Red Cell Distribution Width 13.3 % (13.2-15.2)
[2020-05-09 15:37] LABS: INR 1.12 (0.87-1.13); Partial Thromboplastin Time 29.5 Sec. (24.2-36.6)
--- NOTE | 2020-05-09 15:38 | XRay Report ---
CHEST 1 VIEW 05/09/2020 2:27 PM INDICATION / CLINICAL INFORMATION: Chest Pain. COMPARISON: 01/03/2020 FINDINGS: SUPPORT DEVICES: None. HEART / MEDIASTINUM: Stable. LUNGS / PLEURA: No significant pulmonary or pleural abnormality. No pneumothorax. ADDITIONAL FINDINGS: No significant additional findings. IMPRESSION: 1. No acute findings. Signer Name: Randy Richards MD Signed: 05/09/2020 3:33 PM Workstation Name: [id number]
[2020-05-09 15:39] LABS: BUN/Creatinine Ratio 19; Blood Urea Nitrogen 15 mg/dL (7-17); Calcium 9.7 mg/dL (8.4-10.2); Hemolysis Index 5
--- NOTE | 2020-05-09 16:07 | Emergency Department Report ---
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 Patient complains of worsening dyspnea with exertion accompanied with lightheadedness. She complains of sharp pain to left side of her neck and intermittent substernal chest pressure. Patient denies cough or cold symptoms, fever, loss of sense of taste or smell. Patient's breast cancer is currently in remission. patient received aspirin and nitroglycerin in route to the hospital via EMS as per previous medical record Echo done 12/2018 showed EF 15-20%, mod LVH, grade I diastolic dysfunction, mod MR, mild TR, trace circumferential pericardial effusion. LHC done 10/2016 showed calcified, ostial stenosis of LAD 30-50%, EF 15-20%. 09/13/19: Negative Lexiscan EKG but nondiagnostic left bundle. No significant stress-induced ischemia present. Dilated left ventricle was small mild fixed inferior lateral defect seen in the inferior lateral region. Normal perfusion anterior, apical, septal regions. Severity scale (0 -10): 0 - Related Data Home Medications Medication Instructions Recorded Confirmed Last Taken Aspirin EC [Halfprin EC] 81 mg PO QDAY 05/09/20 05/09/20 Unknown Furosemide [Lasix TAB] 40 mg PO QDAY 05/09/20 05/09/20 Unknown Lisinopril [Zestril] 5 mg PO QDAY 05/09/20 05/09/20 Unknown Metoprolol Xl [Metoprolol 50 mg PO QDAY 05/09/20 05/09/20 Unknown SUCCINATE ER TAB] Nitroglycerin [Nitrostat] 0.4 mg SL Q5M PRN 05/09/20 05/09/20 Unknown Rosuvastatin Calcium [Crestor] 40 mg PO QDAY 05/09/20 05/09/20 Unknown Sacubitril/Valsartan [Entresto 1 tab PO BID 05/09/20 05/09/20 Unknown 49-51 mg] Sertraline [Zoloft] 50 mg PO QHS 05/09/20 05/09/20 Unknown traZODone [Desyrel] 50 mg PO TID 05/09/20 05/09/20 Unknown Previous Rx's Medication Instructions Recorded Last Taken Type Ranolazine [Ranexa] 500 mg PO BID #60 tab.er.h 09/13/19 Unknown Rx Allergies Allergy/AdvReac Type Severity Reaction Status Date / Time No Known Allergies Allergy Verified 10/01/17 17:09 Heart Score - HEART Score History: Moderately suspicious EKG: Non-specific Age: > 65 Risk factors: > 3 risk factors or hx of atherosclerotic disease Troponin: < normal limit HEART Score: 6 ED Review of Systems ROS: Stated complaint: SOB, CHEST PAINS Other details as noted in HPI Comment: All other systems reviewed and negative ED Past Medical Hx - Past Medical History Hx Hypertension: Yes Hx CVA: Yes Hx Congestive Heart Failure: Yes Hx Diabetes: Yes Hx Arthritis: Yes Additional medical history: high cholesterol. CAD - Surgical History Hx Coronary Stent: Yes Hx Breast Surgery: Yes (right mastectomy) Additional Surgical History: hysterectomy - Social History Smoking Status: Never Smoker - Medications Home Medications: Home Medications Medication Instructions Recorded Confirmed Last Taken Type Ranolazine [Ranexa] 500 mg PO BID #60 tab.er.12h 09/13/19 05/09/20 Unknown Rx Aspirin EC [Halfprin EC] 81 mg PO QDAY 05/09/20 05/09/20 Unknown History Furosemide [Lasix TAB] 40 mg PO QDAY 05/09/20 05/09/20 Unknown History Lisinopril [Zestril] 5 mg PO QDAY 05/09/20 05/09/20 Unknown History Metoprolol Xl [Metoprolol 50 mg PO QDAY 05/09/20 05/09/20 Unknown History SUCCINATE ER TAB] Nitroglycerin [Nitrostat] 0.4 mg SL Q5M PRN 05/09/20 05/09/20 Unknown History Rosuvastatin Calcium [Crestor] 40 mg PO QDAY 05/09/20 05/09/20 Unknown History Sacubitril/Valsartan [Entresto 1 tab PO BID 05/09/20 05/09/20 Unknown History 49-51 mg] Sertraline [Zoloft] 50 mg PO QHS 05/09/20 05/09/20 Unknown History traZODone [Desyrel] 50 mg PO TID 05/09/20 05/09/20 Unknown History ED Physical Exam - General Limitations: No Limitations - Other Other exam information: General: No acute distress Head: Atraumatic Eyes: normal appearance ENT: Moist mucous membranes Neck: Normal appearance, no midline tenderness Chest: Clear to auscultation bilaterally, chest wall nontender CV: Regular rate and rhythm Abdomen: Soft, normal bowel sounds, nontender, nondistended, no rebound or guarding Back: Normal inspection Extremity: Normal inspection, full range of motion, no calf tenderness or leg Neuro: Alert O x 3, no facial asymmetry, speech clear, no gross motor sensory deficit Psych: Appropriate behavior Skin: No rash ED Course Vital Signs 05/09/20 05/09/20 05/09/20 14:20 14:39 14:46 Pulse Rate 76 67 65 Respiratory 16 16 14 Rate Blood Pressure 141/73 Blood Pressure 168/83 [Left] O2 Sat by Pulse 91 100 97 Oximetry 05/09/20 05/09/20 05/09/20 15:00 15:16 15:30 Pulse Rate 66 66 71 Respiratory 17 17 14 Rate Blood Pressure 141/73 143/70 143/70 Blood Pressure [Left] O2 Sat by Pulse 100 99 96 Oximetry 05/09/20 05/09/20 15:46 16:06 Pulse Rate 69 83 Respiratory 16 17 Rate Blood Pressure 143/70 143/70 Blood Pressure [Left] O2 Sat by Pulse 99 Oximetry - Reevaluation(s) Reevaluation #1: 05/09/20 17:42 Patient placed in room air and saturations 98% - ABG Interpretation Ph: 7.38 PCO2: 42 PO2: 78 Bicarbonate: 24 Interpretation: normal Additional Comments: performed on room air, no acid base disturbance or significant hypoxia CHEN score - Chen Score Age > 65: (1) Yes Aspirin use within the Past 7 Days: (1) Yes 3 or more CAD Risk Factors: (1) Yes 2 or more Angina events in past 24 hrs: (1) Yes Known CAD with more than 50% Stenosis: (1) Yes Elevated Cardiac Markers: (0) No ST Deviation Greater than 0.5mm: (0) No CHEN Score: 5 ED Medical Decision Making - Lab Data Result diagrams: 05/09/20 15:11 05/09/20 15:11 Lab Results 05/09/20 05/09/20 05/09/20 Range/Units 15:11 15:11 15:11 WBC 3.2 L (4.5-11.0) K/mm3 RBC 4.00 (3.65-5.03) M/mm3 Hgb 13.5 (10.1-14.3) gm/dl Hct 39.2 (30.3-42.9) % MCV 98 H (79-97) fl MCH 34 H (28-32) pg MCHC 34 (30-34) % RDW 13.3 (13.2-15.2) % Plt Count 178 (140-440) K/mm3 Lymph % (Auto) 38.8 H (13.4-35.0) % [place] % (Auto) 9.9 H (0.0-7.3) % Eos % (Auto) 0.8 (0.0-4.3) % Baso % (Auto) 0.5 (0.0-1.8) % Lymph # (Auto) 1.2 (1.2-5.4) K/mm3 [place] # (Auto) 0.3 (0.0-0.8) K/mm3 Eos # (Auto) 0.0 (0.0-0.4) K/mm3 Baso # (Auto) 0.0 (0.0-0.1) K/mm3 Seg Neutrophils % 50.0 (40.0-70.0) % Seg Neutrophils # 1.6 L (1.8-7.7) K/mm3 PT 14.2 (12.2-14.9) Sec. INR 1.12 (0.87-1.13) APTT 29.5 (24.2-36.6) Sec. D-Dimer 228.57 (0-234) ng/mlDDU ABG pH (7.350-7.450) pH Units ABG pCO2 mm Hg ABG pO2 (80.0-90.0) mm Hg ABG HCO3 (20.0-26.0) mmol/L ABG O2 Saturation (95.0-99.0) % ABG O2 Content (0.0-44) ABG Base Excess (-2.0-3.0) mmol/L ABG Hemoglobin (12.0-16.0) gm/dl ABG Carboxyhemoglobin (0.0-5.0) % ABG Methemoglobin (0.0-1.5) % Oxyhemoglobin (95.0-99.0) % FiO2 % Sodium 136 L (137-145) mmol/L Potassium 4.2 (3.6-5.0) mmol/L Chloride 103.7 (98-107) mmol/L Carbon Dioxide 27 (22-30) mmol/L Anion Gap 10 mmol/L BUN 15 (7-17) mg/dL Creatinine 0.8 (0.6-1.2) mg/dL Estimated GFR > 60 ml/min BUN/Creatinine Ratio 19 % Glucose 108 H (65-100) mg/dL Calcium 9.7 (8.4-10.2) mg/dL Troponin T < 0.010 (0.00-0.029) ng/mL NT-Pro-B Natriuret Pep 1757 H (0-900) pg/mL 05/09/20 Range/Units 17:10 WBC (4.5-11.0) K/mm3 RBC (3.65-5.03) M/mm3 Hgb (10.1-14.3) gm/dl Hct (30.3-42.9) % MCV (79-97) fl MCH (28-32) pg MCHC (30-34) % RDW (13.2-15.2) % Plt Count (140-440) K/mm3 Lymph % (Auto) (13.4-35.0) % [place] % (Auto) (0.0-7.3) % Eos % (Auto) (0.0-4.3) % Baso % (Auto) (0.0-1.8) % Lymph # (Auto) (1.2-5.4) K/mm3 [place] # (Auto) (0.0-0.8) K/mm3 Eos # (Auto) (0.0-0.4) K/mm3 Baso # (Auto) (0.0-0.1) K/mm3 Seg Neutrophils % (40.0-70.0) % Seg Neutrophils # (1.8-7.7) K/mm3 PT (12.2-14.9) Sec. INR (0.87-1.13) APTT (24.2-36.6) Sec. D-Dimer (0-234) ng/mlDDU ABG pH 7.382 (7.350-7.450) pH Units ABG pCO2 42.6 mm Hg ABG pO2 78.3 L (80.0-90.0) mm Hg ABG HCO3 24.8 (20.0-26.0) mmol/L ABG O2 Saturation 95.8 (95.0-99.0) % ABG O2 Content 18.0 (0.0-44) ABG Base Excess -0.4 (-2.0-3.0) mmol/L ABG Hemoglobin 13.6 (12.0-16.0) gm/dl ABG Carboxyhemoglobin 1.4 (0.0-5.0) % ABG Methemoglobin 0.5 (0.0-1.5) % Oxyhemoglobin 94.0 L (95.0-99.0) % FiO2 21 % Sodium (137-145) mmol/L Potassium (3.6-5.0) mmol/L Chloride (98-107) mmol/L Carbon Dioxide (22-30) mmol/L Anion Gap mmol/L BUN (7-17) mg/dL Creatinine (0.6-1.2) mg/dL Estimated GFR ml/min BUN/Creatinine Ratio % Glucose (65-100) mg/dL Calcium (8.4-10.2) mg/dL Troponin T (0.00-0.029) ng/mL NT-Pro-B Natriuret Pep (0-900) pg/mL - EKG Data -: EKG Interpreted by Me (Left bundle branch block) EKG shows normal: sinus rhythm Rate: normal - Radiology Data Radiology results: report reviewed cxr: naf - Medical Decision Making 84-year-old female presents to the hospital with chest pain and shortness of breath with a significant cardiac history including CHF and CAD with ischemic cardiomyopathy. Chest x-ray unremarkable. D-dimer within normal range. EKG with a chronic left bundle. It is initially documented patient was hypoxic on room air however, her room air saturation was 98%. ABG requested but respiratory therapist having difficulty obtaining her sample. Pending at time of disposition. Is documented patient required some additional outpatient cardiac work-up after her previous admission in December. Patient is a 69 heart cardiology patient and they will be consulted during this admission. ABG on room air was also performed that did not show any significant hypoxia or acid-base disturbance. Critical Care Time: No Critical care attestation.: If time is entered above; I have spent that time in minutes in the direct care of this critically ill patient, excluding procedure time. ED Disposition Clinical Impression: Chest pain, CHF (congestive heart failure), CAD (coronary artery disease), History of ischemic cardiomyopathy Disposition: OP ADMIT IP TO THIS HOSP Is pt being admited?: Yes Condition: Stable Instructions: Chest Pain (ED) Time of Disposition: 17:31 (Dr Cifuentes/hospitalist)
[2020-05-09 17:14] LABS: ABG Base Excess -0.4 mmol/L (-2.0-3.0); ABG HCO3 24.8 mmol/L (20.0-26.0); ABG Methemoglobin 0.5 % (0.0-1.5); ABG Oxygen Saturation 95.8 % (95.0-99.0); ABG PCO2 42.6 mm Hg; ABG PH 7.382 pH Units (7.350-7.450); ABG PO2 78.3 mm Hg (80.0-90.0)
[2020-05-09] MEDS ORDERED: NITROGLYCERIN 0.4 MG TAB SUBL SL PRN ×2 (18:18→18:20)
[2020-05-09] MEDS ORDERED: MORPHINE 4 MG/1 ML INJ IV PRN (18:18)
[2020-05-09] MEDS ORDERED: ACETAMINOPHEN 325 MG TAB PO PRN (18:18)
--- NOTE | 2020-05-09 18:28 | History and Physical Report ---
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 Patient complaining of sharp chest pain which is 3/10 left-sided intermittent substernal chest pressure rating to the neck as detailed worsening dyspnea on exertion and lightheadedness Patient denies cough or cold symptoms, fever, loss of sense of taste or smell. In the emergency room initial cardiac enzyme is negative troponin is 0.010 and BNP is 1757 Past History Past Medical History: CAD, cancer, diabetes, heart failure, hypertension Medications and Allergies Allergies Allergy/AdvReac Type Severity Reaction Status Date / Time No Known Allergies Allergy Verified 10/01/17 17:09 Home Medications Medication Instructions Recorded Confirmed Last Taken Type Ranolazine [Ranexa] 500 mg PO BID #60 tab.er.12h 09/13/19 05/09/20 Unknown Rx Aspirin EC [Halfprin EC] 81 mg PO QDAY 05/09/20 05/09/20 Unknown History Furosemide [Lasix TAB] 40 mg PO QDAY 05/09/20 05/09/20 Unknown History Lisinopril [Zestril] 5 mg PO QDAY 05/09/20 05/09/20 Unknown History Metoprolol Xl [Metoprolol 50 mg PO QDAY 05/09/20 05/09/20 Unknown History SUCCINATE ER TAB] Nitroglycerin [Nitrostat] 0.4 mg SL Q5M PRN 05/09/20 05/09/20 Unknown History Rosuvastatin Calcium [Crestor] 40 mg PO QDAY 05/09/20 05/09/20 Unknown History Sacubitril/Valsartan [Entresto 1 tab PO BID 05/09/20 05/09/20 Unknown History 49-51 mg] Sertraline [Zoloft] 50 mg PO QHS 05/09/20 05/09/20 Unknown History traZODone [Desyrel] 50 mg PO TID 05/09/20 05/09/20 Unknown History Active Meds: Active Medications Acetaminophen (Acetaminophen 325 Mg Tab) 650 mg PO Q6H PRN PRN Reason: Pain, Mild (1-3) Aspirin (Aspirin Ec 325 Mg Tab) 325 mg PO QDAY [facility] Aspirin (Aspirin Ec 81 Mg Tab) 81 mg PO QDAY [facility] Atorvastatin Calcium (Atorvastatin 40 Mg Tab) 40 mg PO QHS [facility] Furosemide (Furosemide 40 Mg Tab) 40 mg PO QDAY [facility] Heparin Sodium (Porcine) (Heparin 5,000 Unit/1 Ml Vial) 5,000 unit SUB-Q Q8HR [facility] Lisinopril (Lisinopril 5 Mg Tab) 5 mg PO QDAY [facility] Lisinopril (Lisinopril 5 Mg Tab) 5 mg PO QDAY [facility] Metoprolol Succinate (Metoprolol Succinate Xl 50 Mg Tab) 50 mg PO QDAY [facility] Miscellaneous Medication (Rosuvastatin Calcium [Crestor]) 40 mg PO QDAY [facility] Morphine Sulfate (Morphine 4 Mg/1 Ml Inj) 2 mg IV Q5MIN PRN PRN Reason: Chest Pain Nitroglycerin (Nitroglycerin 0.4 Mg Tab Subl) 0.4 mg SL Q5M PRN PRN Reason: Chest Pain Nitroglycerin (Nitroglycerin 0.4 Mg Tab Subl) 0.4 mg SL Q5M PRN PRN Reason: chest pain Pantoprazole Sodium (Pantoprazole 40 Mg Tab) 40 mg PO QDAY [facility] Ranolazine (Ranolazine Er 500 Mg Tab 12hr) 500 mg PO BID [facility] Sertraline HCl (Sertraline 50 Mg Tab) 50 mg PO QHS [facility] Sodium Chloride (Sodium Chloride 0.9% 10 Ml Flush Syringe) 10 ml IV PRN PRN PRN Reason: LINE FLUSH Trazodone HCl (Trazodone 50 Mg Tab) 50 mg PO TID [facility] Review of Systems Cardiovascular: chest pain, lightheadedness, shortness of breath, dyspnea on exertion Respiratory: shortness of breath, dyspnea on exertion Exam - Constitutional Vitals: Temp Pulse Resp BP Pulse Ox 83 17 143/70 99 05/09/20 16:06 05/09/20 16:06 05/09/20 16:06 05/09/20 15:46 General appearance: Present: no acute distress, well-nourished - EENT Eyes: Present: PERRL ENT: hearing intact, clear oral mucosa - Neck Neck: Present: supple, normal ROM - Respiratory Respiratory effort: normal Respiratory: bilateral: diminished - Cardiovascular Heart Sounds: Present: S1 & S2. Absent: rub, click - Extremities Extremities: pulses symmetrical, No edema Peripheral Pulses: within normal limits - Abdominal General gastrointestinal: Present: soft, non-tender, non-distended, normal bowel sounds Female genitourinary: Present: normal - Integumentary Integumentary: Present: clear, warm, dry - Musculoskeletal Musculoskeletal: gait normal, strength equal bilaterally - Psychiatric Psychiatric: appropriate mood/affect, intact judgment & insight - Neurologic Neurologic: CNII-XII intact, moves all extremities HEART Score - HEART Score EKG: Non-specific Age: > 65 Risk factors: > 3 risk factors or hx of atherosclerotic disease Troponin: Troponin T < 0.010 ng/mL (0.00-0.029) 05/09/20 15:11 Troponin: < normal limit Results - Labs CBC & Chem 7: 05/09/20 15:11 05/09/20 15:11 Labs: Laboratory Last Values WBC 3.2 K/mm3 (4.5-11.0) L 05/09/20 15:11 RBC 4.00 M/mm3 (3.65-5.03) 05/09/20 15:11 Hgb 13.5 gm/dl (10.1-14.3) 05/09/20 15:11 Hct 39.2 % (30.3-42.9) 05/09/20 15:11 MCV 98 fl (79-97) H 05/09/20 15:11 MCH 34 pg (28-32) H 05/09/20 15:11 MCHC 34 % (30-34) 05/09/20 15:11 RDW 13.3 % (13.2-15.2) 05/09/20 15:11 Plt Count 178 K/mm3 (140-440) 05/09/20 15:11 Lymph % (Auto) 38.8 % (13.4-35.0) H 05/09/20 15:11 [place] % (Auto) 9.9 % (0.0-7.3) H 05/09/20 15:11 Eos % (Auto) 0.8 % (0.0-4.3) 05/09/20 15:11 Baso % (Auto) 0.5 % (0.0-1.8) 05/09/20 15:11 Lymph # (Auto) 1.2 K/mm3 (1.2-5.4) 05/09/20 15:11 [place] # (Auto) 0.3 K/mm3 (0.0-0.8) 05/09/20 15:11 Eos # (Auto) 0.0 K/mm3 (0.0-0.4) 05/09/20 15:11 Baso # (Auto) 0.0 K/mm3 (0.0-0.1) 05/09/20 15:11 Seg Neutrophils % 50.0 % (40.0-70.0) 05/09/20 15:11 Seg Neutrophils # 1.6 K/mm3 (1.8-7.7) L 05/09/20 15:11 PT 14.2 Sec. (12.2-14.9) 05/09/20 15:11 INR 1.12 (0.87-1.13) 05/09/20 15:11 APTT 29.5 Sec. (24.2-36.6) 05/09/20 15:11 D-Dimer 228.57 ng/mlDDU (0-234) 05/09/20 15:11 ABG pH 7.382 pH Units (7.350-7.450) 05/09/20 17:10 ABG pCO2 42.6 mm Hg 05/09/20 17:10 ABG pO2 78.3 mm Hg (80.0-90.0) L 05/09/20 17:10 ABG HCO3 24.8 mmol/L (20.0-26.0) 05/09/20 17:10 ABG O2 Saturation 95.8 % (95.0-99.0) 05/09/20 17:10 ABG O2 Content 18.0 (0.0-44) 05/09/20 17:10 ABG Base Excess -0.4 mmol/L (-2.0-3.0) 05/09/20 17:10 ABG Hemoglobin 13.6 gm/dl (12.0-16.0) 05/09/20 17:10 ABG Carboxyhemoglobin 1.4 % (0.0-5.0) 05/09/20 17:10 ABG Methemoglobin 0.5 % (0.0-1.5) 05/09/20 17:10 Oxyhemoglobin 94.0 % (95.0-99.0) L 05/09/20 17:10 FiO2 21 % 05/09/20 17:10 Sodium 136 mmol/L (137-145) L 05/09/20 15:11 Potassium 4.2 mmol/L (3.6-5.0) 05/09/20 15:11 Chloride 103.7 mmol/L (98-107) 05/09/20 15:11 Carbon Dioxide 27 mmol/L (22-30) 05/09/20 15:11 Anion Gap 10 mmol/L 05/09/20 15:11 BUN 15 mg/dL (7-17) 05/09/20 15:11 Creatinine 0.8 mg/dL (0.6-1.2) 05/09/20 15:11 Estimated GFR > 60 ml/min 05/09/20 15:11 BUN/Creatinine Ratio 19 % 05/09/20 15:11 Glucose 108 mg/dL (65-100) H 05/09/20 15:11 Calcium 9.7 mg/dL (8.4-10.2) 05/09/20 15:11 Troponin T < 0.010 ng/mL (0.00-0.029) 05/09/20 15:11 NT-Pro-B Natriuret Pep 1757 pg/mL (0-900) H 05/09/20 15:11 - Imaging and Cardiology Chest x-ray: image reviewed Assessment and Plan - Patient Problems (1) Chest pain Current Visit: Yes Status: Acute Plan to address problem: Admit the patient to the cardiac telemetry. Put the patient on chest pain pathway. Aspirin 325 mg p.o. daily. Nitroglycerin as needed. Lipitor 40 mg p.o. daily. We will do the serial cardiac enzyme. We also do a echocardiogram. If needed will consult cardiology in the morning. We will continue the home medication. We will recheck lipid and BMP in the morning. Heparin 5000 units subcu every 8 hours for DVT prophylaxis and Protonix 40 mg p.o. daily for GI prophylaxis. Patient is a full code (2) CHF (congestive heart failure) Current Visit: Yes Status: Acute Qualifiers: Plan to address problem: Lasix 40 mg p.o. daily. Fluid restriction. Cardiac diet. Will maintain in taken output. We will do the serial cardiac enzyme. We also do a echocardiogram. If needed will consult cardiology in the morning. We will continue the home medication. (3) CAD (coronary artery disease) Current Visit: Yes Status: Chronic Plan to address problem: Aspirin 325 mg p.o. daily. Nitroglycerin as needed. Lipitor 40 mg p.o. daily. We will do the serial cardiac enzyme. We also do a echocardiogram. If needed will consult cardiology in the morning. We will continue the home medication. (4) DVT prophylaxis Current Visit: No Status: Acute Plan to address problem: Heparin 5000 units subcu every 8 hours. (5) SOB (shortness of breath) Current Visit: No Status: Acute Plan to address problem: Oxygen per nasal cannula 3 L/min. DuoNeb by nebulizer every 4 hours as needed. Lasix 40 mils p.o. daily. We will also do echocardiogram
[2020-05-09 19:28] LABS: Hematocrit 40.9 % (30.3-42.9); Mean Corpuscular HGB Conc 34 % (30-34); Mean Corpuscular Volume 99 fl (79-97); Platelet Count 167 K/mm3 (140-440); Red Blood Count 4.14 M/mm3 (3.65-5.03)
[2020-05-09 19:37] LABS: BUN/Creatinine Ratio 16; Blood Urea Nitrogen 14 mg/dL (7-17); Calcium 9.9 mg/dL (8.4-10.2); Chol/HDL Ratio 2.68 %; HDL Cholesterol 63 mg/dL (40-59); Hemolysis Index 21; LDL Cholesterol,Direct 104 mg/dL (50-130)
[2020-05-09] MEDS: RANOLAZINE ER 500 MG TAB 12HR PO SCH (23:07)
[2020-05-09] MEDS: traZODone 50 MG TAB PO SCH (23:07)
[2020-05-09] MEDS: SERTRALINE 50 MG TAB PO SCH (23:07)
[2020-05-09] MEDS: SACUBITRIL/VALSARTAN 49-51 MG TAB PO SCH (23:07)
[2020-05-09] MEDS: HEPARIN 5,000 UNIT/1 ML VIAL SUB-Q SCH (23:08)
[2020-05-10] MEDS: HEPARIN 5,000 UNIT/1 ML VIAL SUB-Q SCH ×3 (05:22→22:03)
[2020-05-10] MEDS: FUROSEMIDE 40 MG TAB PO SCH (05:22)
[2020-05-10] MEDS: RANOLAZINE ER 500 MG TAB 12HR PO SCH ×2 (09:42→22:03)
[2020-05-10] MEDS: PANTOPRAZOLE 40 MG TAB PO SCH (09:42)
[2020-05-10] MEDS: METOPROLOL SUCCINATE XL 50 MG TAB PO SCH (09:42)
[2020-05-10] MEDS: ASPIRIN EC 81 MG TAB PO SCH (09:42)
[2020-05-10] MEDS: traZODone 50 MG TAB PO SCH ×3 (09:42→20:01)
[2020-05-10] MEDS ORDERED: LISINOPRIL 5 MG TAB PO SCH ×2 (10:00)
[2020-05-10] MEDS ORDERED: ASPIRIN EC 325 MG TAB PO SCH (10:00)
[2020-05-10] MEDS ORDERED: NON-FORMULARY EACH (Rosuvastatin Calcium [Crestor] 40 MG Tablet) PO SCH (10:00)
[2020-05-10] MEDS: SACUBITRIL/VALSARTAN 49-51 MG TAB PO SCH ×2 (11:26→22:03)
[2020-05-10] MEDS ORDERED: FLU VACC QUAD 2020-2021 (6 months +)/PF 60 0.5 ML SYRINGE IM ONE (12:00)
--- NOTE | 2020-05-10 14:19 | Progress Note ---
Assessment and Plan Assessment and plan: (1) Chest pain EKG shows LLB which is old. Troponin - -ve Continue Aspirin , statins Plan for stress test tomorrow Cardiology consulted. Echocardiogram. (2) CHF (congestive heart failure) Continue Lasix 40 mg p.o. daily. Fluid restriction. Cardiac diet. Echocardiogram (3) CAD (coronary artery disease) Current Visit: Yes Status: Chronic Plan to address problem: Aspirin Statins Cardiology consulted. (4) DVT prophylaxis Current Visit: No Status: Acute Plan to address problem: Heparin 5000 units subcu every 8 hours. History Interval history: Has no complaints this morning Cardiology consulted as she has significant cardiac history Hospitalist Physical - Constitutional Vitals: Temp Pulse Resp BP Pulse Ox 98.0 F 70 18 88/51 97 05/10/20 07:59 05/10/20 10:00 05/10/20 07:59 05/10/20 07:59 05/10/20 07:59 General appearance: Present: no acute distress, well-nourished - EENT Eyes: Present: PERRL ENT: hearing intact - Neck Neck: Present: supple - Respiratory Respiratory: bilateral: CTA - Cardiovascular Rhythm: regular Heart Sounds: Present: S1 & S2 - Extremities Extremities: No edema - Abdominal General gastrointestinal: soft, non-tender, non-distended, normal bowel sounds - Psychiatric Psychiatric: appropriate mood/affect, cooperative - Allied Health Allied health notes reviewed: nursing HEART Score - HEART Score EKG: Non-specific Age: > 65 Risk factors: > 3 risk factors or hx of atherosclerotic disease Troponin: Troponin T < 0.010 ng/mL (0.00-0.029) 05/09/20 19:13 Troponin: < normal limit Results - Labs CBC & Chem 7: 05/09/20 19:13 05/09/20 19:13 Labs: Laboratory Last Values WBC 3.1 K/mm3 (4.5-11.0) L 05/09/20 19:13 RBC 4.14 M/mm3 (3.65-5.03) 05/09/20 19:13 Hgb 14.0 gm/dl (10.1-14.3) 05/09/20 19:13 Hct 40.9 % (30.3-42.9) 05/09/20 19:13 MCV 99 fl (79-97) H 05/09/20 19:13 MCH 34 pg (28-32) H 05/09/20 19:13 MCHC 34 % (30-34) 05/09/20 19:13 RDW 13.0 % (13.2-15.2) L 05/09/20 19:13 Plt Count 167 K/mm3 (140-440) 05/09/20 19:13 Lymph % (Auto) Pcts 05/09/20 19:13 [place] % (Auto) Pcts 05/09/20 19:13 Eos % (Auto) Pcts 05/09/20 19:13 Baso % (Auto) Pcts 05/09/20 19:13 Lymph # (Auto) Pcts 05/09/20 19:13 [place] # (Auto) Pcts 05/09/20 19:13 Eos # (Auto) Pcts 05/09/20 19:13 Baso # (Auto) Pcts 05/09/20 19:13 Seg Neutrophils % Pcts 05/09/20 19:13 Seg Neutrophils # Pcts 05/09/20 19:13 PT 14.2 Sec. (12.2-14.9) 05/09/20 15:11 INR 1.12 (0.87-1.13) 05/09/20 15:11 APTT 29.5 Sec. (24.2-36.6) 05/09/20 15:11 D-Dimer 228.57 ng/mlDDU (0-234) 05/09/20 15:11 ABG pH 7.382 pH Units (7.350-7.450) 05/09/20 17:10 ABG pCO2 42.6 mm Hg 05/09/20 17:10 ABG pO2 78.3 mm Hg (80.0-90.0) L 05/09/20 17:10 ABG HCO3 24.8 mmol/L (20.0-26.0) 05/09/20 17:10 ABG O2 Saturation 95.8 % (95.0-99.0) 05/09/20 17:10 ABG O2 Content 18.0 (0.0-44) 05/09/20 17:10 ABG Base Excess -0.4 mmol/L (-2.0-3.0) 05/09/20 17:10 ABG Hemoglobin 13.6 gm/dl (12.0-16.0) 05/09/20 17:10 ABG Carboxyhemoglobin 1.4 % (0.0-5.0) 05/09/20 17:10 ABG Methemoglobin 0.5 % (0.0-1.5) 05/09/20 17:10 Oxyhemoglobin 94.0 % (95.0-99.0) L 05/09/20 17:10 FiO2 21 % 05/09/20 17:10 Sodium 136 mmol/L (137-145) L 05/09/20 19:13 Potassium 4.5 mmol/L (3.6-5.0) 05/09/20 19:13 Chloride 102.4 mmol/L (98-107) 05/09/20 19:13 Carbon Dioxide 29 mmol/L (22-30) 05/09/20 19:13 Anion Gap 9 mmol/L 05/09/20 19:13 BUN 14 mg/dL (7-17) 05/09/20 19:13 Creatinine 0.9 mg/dL (0.6-1.2) 05/09/20 19:13 Estimated GFR > 60 ml/min 05/09/20 19:13 BUN/Creatinine Ratio 16 % 05/09/20 19:13 Glucose 94 mg/dL (65-100) 05/09/20 19:13 Calcium 9.9 mg/dL (8.4-10.2) 05/09/20 19:13 Troponin T < 0.010 ng/mL (0.00-0.029) 05/09/20 19:13 NT-Pro-B Natriuret Pep 1757 pg/mL (0-900) H 05/09/20 15:11 Triglycerides 67 mg/dL (2-149) 05/09/20 19:13 Cholesterol 169 mg/dL (50-199) 05/09/20 19:13 LDL Cholesterol Direct 104 mg/dL (50-130) 05/09/20 19:13 HDL Cholesterol 63 mg/dL (40-59) H 05/09/20 19:13 Cholesterol/HDL Ratio 2.68 % 05/09/20 19:13 - Diagnostic Impressions Diagnostic Impressions: Echocardiogram 05/09/20 18:19 Transthoracic Echocardiogram Indication: Chest Pain BP: 127/69 Conclusions *The estimated ejection fraction is 20-25%. *There is mild mitral regurgitation. *There is mild tricuspid regurgitation. *The left ventricular chamber size is normal. *Mild concentric left ventricular hypertrophy is observed. *Global left ventricular systolic function is severely decreased. *The estimated ejection fraction is 15-20%. *Abnormal left ventricular diastolic filling is observed, consistent with impaired relaxation. *Right ventricular size and systolic function are within normal limits. Findings Procedure Info: The study quality is fair. Left Ventricle: The left ventricular chamber size is normal. Mild concentric left ventricular hypertrophy is observed. Severe global hypokinesis of the left ventricle is observed. Global left ventricular systolic function is severely decreased. The estimated ejection fraction is 15-20%. Abnormal left ventricular diastolic filling is observed, consistent with impaired relaxation. Left Atrium: The left atrium is normal in size with no visual thrombus identified. Right Ventricle: The right ventricular chamber size and systolic function are within normal limits. Right Atrium: The right atrium appears normal. Aortic Valve: The aortic valve is trileaflet. Mild aortic leaflet calcification is visualized. Mild aortic cusp sclerosis is present. There is no evidence of aortic regurgitation. There is no evidence of aortic stenosis. Mitral Valve: There is posterior mitral annular calcification. The mitral valve leaflets are mildly thickened. There is mild mitral regurgitation. There is no evidence of mitral stenosis. Tricuspid Valve: The tricuspid valve leaflets are normal. There is mild tricuspid regurgitation. The right ventricular systolic pressure is calculated at 15 mmHg. There is no tricuspid stenosis. Pulmonic Valve: The pulmonic valve is not well visualized. There is mild pulmonic regurgitation. There is no pulmonic stenosis. Pericardium: The pericardium appears normal. There is no pericardial effusion. Aorta: The aorta appears normal. There is no dilatation of the ascending aorta. There is no dilatation of the aortic root. Pulmonary Artery: The main pulmonary artery is not well visualized. Venous: The inferior vena cava appears normal in size. There is a greater than 50% respiratory change in the inferior vena cava dimension. Measurements Chambers 2D Name Value Normal Range IVSd (2D) 1.21 cm (0.6 - 1.1) LVPWd (2D) 1.2 cm (0.6 - 1.1) LVIDd (2D) 5.19 cm (3.7 - 5.6) LVIDs (2D) 4.55 cm (2 - 3.8) LV FS (2D) 12.37 % - EF Teichholz (2D) 26.49 % - Ao root diameter (2D) 2.71 cm (2 - 3.7) Volumes/Mass Name Value Normal Range LA ESV SP 4CH (A/L) 42.54 ml - LA ESV SP 2CH (A/L) 57.04 ml - LA ESV BP (A/L) 50.65 ml - LA ESV BP (A/L) index 32.47 ml/m2 - LA ESV SP 4CH (MOD) 43.2 ml - LA ESV SP 2CH (MOD) 54.79 ml - LA ESV BP (MOD) 49.67 ml - LA ESV BP (MOD) index 31.84 ml/m2 - LV EDV SP 4CH (MOD) 119.13 ml - LV ESV SP 4CH (MOD) 89.7 ml - EF SP 4CH (MOD) 24.71 % - LV EDV SP 2CH (MOD) 81.38 ml - LV ESV SP 2CH (MOD) 56.6 ml - EF SP 2CH (MOD) 30.45 % - LV EDV BP 98.76 ml - LV ESV BP 73.61 ml - BP EF (MOD) 25.47 % - Diastolic/Systolic Function Name Value Normal Range MV E-wave Vmax 0.53 m/sec - MV deceleration time 201.47 msec - MV A-wave Vmax 0.85 m/sec - MV E:A ratio 0.62 ratio - Aortic Valve Name Value Normal Range AV Vmax 1.29 m/sec - AV VTI 21.39 cm - AV peak gradient 6.69 mmHg - AV mean gradient 3.42 mmHg - LVOT diameter 1.81 cm - LVOT Vmax 0.64 m/sec - LVOT VTI 12.84 cm - LVOT peak gradient 1.65 mmHg - LVOT mean gradient 0.88 mmHg - SV LVOT 32.9 ml - BLANQUITA (continuity Vmax) 1.27 cm2 - BLANQUITA (continuity VTI) 1.54 cm2 - Ascending Ao 2.89 cm - Mitral Valve Name Value Normal Range MV Vmax 1 m/sec - MV VTI 21.09 cm - MV peak gradient 3.99 mmHg - MV mean gradient 1.44 mmHg - MV PHT 58.87 msec - MVA (PHT) 3.74 cm2 - MVA (continuity VTI) 1.56 cm2 - Tricuspid Valve Name Value Normal Range TV E-wave Vmax 0.27 m/sec - TR Vmax 1.75 m/sec - TR peak gradient 12.24 mmHg - RAP 3 mmHg - RVSP 15 mmHg - Pulmonic Valve/Qp:Qs Name Value Normal Range PV Vmax 0.72 m/sec - PV peak gradient 2.08 mmHg - IN end-diastolic Vmax 0.97 m/sec - RVOT Vmax 0.56 m/sec - RVOT VTI 7.24 cm - RVOT peak gradient 1.24 mmHg - PV acceleration time 106.57 msec - Tripp/IV: Voiding Method Toilet Active Medications - Current Medications Current Medications: Generic Name Dose Route Start Last Admin Trade Name Freq PRN Reason Stop Dose Admin Acetaminophen 650 mg 05/09/20 18:18 Acetaminophen 325 Mg Tab PO Q6H PRN Pain, Mild (1-3) Aspirin 81 mg 05/10/20 10:00 05/10/20 09:42 Aspirin Ec 81 Mg Tab PO 81 mg QDAY ERON Administration Atorvastatin Calcium 40 mg 05/09/20 22:00 05/09/20 23:07 Atorvastatin 40 Mg Tab PO 40 mg QHS ERON Administration Furosemide 40 mg 05/10/20 06:00 05/10/20 05:22 Furosemide 40 Mg Tab PO 40 mg DAILY@0600 ERON Administration Heparin Sodium (Porcine) 5,000 unit 05/09/20 22:00 05/10/20 14:02 Heparin 5,000 Unit/1 Ml Vial SUB-Q 5,000 unit Q8HR ERON Administration Lisinopril 5 mg 05/10/20 10:00 05/10/20 09:42 Lisinopril 5 Mg Tab PO 5 mg QDAY ERON Administration Metoprolol Succinate 50 mg 05/10/20 10:00 05/10/20 09:42 Metoprolol Succinate Xl 50 Mg Tab PO 50 mg QDAY ERON Administration Morphine Sulfate 2 mg 05/09/20 18:18 Morphine 4 Mg/1 Ml Inj IV Q5MIN PRN Chest Pain Nitroglycerin 0.4 mg 05/09/20 18:20 Nitroglycerin 0.4 Mg Tab Subl SL Q5M PRN chest pain Pantoprazole Sodium 40 mg 05/10/20 10:00 05/10/20 09:42 Pantoprazole 40 Mg Tab PO 40 mg QDAY ERON Administration Ranolazine 500 mg 05/09/20 22:00 05/10/20 09:42 Ranolazine Er 500 Mg Tab 12hr PO 500 mg BID ERON Administration Sertraline HCl 50 mg 05/09/20 22:00 05/09/20 23:07 Sertraline 50 Mg Tab PO 50 mg QHS REON Administration Sodium Chloride 10 ml 05/09/20 18:18 Sodium Chloride 0.9% 10 Ml Flush Syringe IV PRN PRN LINE FLUSH Trazodone HCl 50 mg 05/09/20 20:00 05/10/20 14:02 Trazodone 50 Mg Tab PO 50 mg TID ERON Administration Nutrition/Malnutrition Assess - Dietary Evaluation Nutrition/Malnutrition Findings: Nutrition Notes Start: 05/10/20 09:14 Freq: Status: Active Protocol: Document 05/10/20 09:14 LP (Rec: 05/10/20 09:19 LP [id number]) Nutrition Notes Need for Assessment generated from: MD Order,[employer],MST Initial or Follow up Assessment Current Diagnosis Diabetes,Hypertension,Heart Failure,Stroke Other Pertinent Diagnosis chest pain, breast CA s/p right mastectomy Current Diet Cardiac Labs/Tests Na 136 Pertinent Medications Lasix Height 5 ft Weight 59.874 kg [place] Body Weight (kg) 45.45 BMI 25.7 Weight Status Overweight Subjective/Other Information Consult for poor oral intakes. Unable to see pt at time of visit. Burn Absent Trauma Absent GI Symptoms None Food Allergy No Minimum of two criteria No physical signs of malnutrition #1 Nutrition Diagnosis Predicted suboptimal energy intake Etiology Advanced age As Evidenced by Signs and Symptoms No intakes recorded and unable to obtain nutrition hx Is patient on ventilator? No Is Patient Ambulatory and/or Out of Bed Yes REE-([facility]-ambulatory/OOB) [ 1254.812 [id number]] Calculation Used for Recommendations [facility] Additional Notes Protein needs are 60-72g (1-1. 2g/kg) Fluid needs are 1ml/kcal Nutrition Intervention Change Diet Order: Continue Add Supplement/Snack (indicate name/kcal Ensure Enlive BID /protein ) Provides kCal: 700 Provides Protein (gm) 40 Goal #1 Meet at least 80% of kcal and protein needs Follow-Up By: 05/12/20 Additional Comments Follow assessment needs and intakes
--- NOTE | 2020-05-10 18:07 | Consultation ---
History of Present Illness Consult date: 05/10/20 Requesting physician: VALENCIA STEPHENS Consult reason: syncope History of present illness: The patient has a history of CAD, status post PCI, ischemic cardiomyopathy and chronic HFrEF. She is followed by Dr. Gil in our office. She claims that yesterday, she felt sick in the stomach, became dizzy and experienced a syncopal episode. Upon arousal, she activated the EMS and was brought to the ER. She claims that upon waking up, she experienced some shortness of breath. She denies chest pain. Notably, she had a negative stress MPI in August 2019. Past History Past Medical History: CAD, cancer (Breast CA), diabetes, heart failure (Chronic HFrEF.), hypertension, hyperlipidemia, other (Ischemic cardiomyopathy. Negative stress MPI in August 2019. Small bowel AVM) Past Surgical History: mastectomy (R) Social history: denies: smoking Family history: CAD Medications and Allergies Allergies Allergy/AdvReac Type Severity Reaction Status Date / Time No Known Allergies Allergy Verified 10/01/17 17:09 Home Medications Medication Instructions Recorded Confirmed Last Taken Type Ranolazine [Ranexa] 500 mg PO BID #60 tab.er.12h 09/13/19 05/09/20 Unknown Rx Aspirin EC [Halfprin EC] 81 mg PO QDAY 05/09/20 05/09/20 Unknown History Furosemide [Lasix TAB] 40 mg PO QDAY 05/09/20 05/09/20 Unknown History Lisinopril [Zestril] 5 mg PO QDAY 05/09/20 05/09/20 Unknown History Metoprolol Xl [Metoprolol 50 mg PO QDAY 05/09/20 05/09/20 Unknown History SUCCINATE ER TAB] Nitroglycerin [Nitrostat] 0.4 mg SL Q5M PRN 05/09/20 05/09/20 Unknown History Rosuvastatin Calcium [Crestor] 40 mg PO QDAY 05/09/20 05/09/20 Unknown History Sacubitril/Valsartan [Entresto 1 tab PO BID 05/09/20 05/09/20 Unknown History 49-51 mg] Sertraline [Zoloft] 50 mg PO QHS 05/09/20 05/09/20 Unknown History traZODone [Desyrel] 50 mg PO TID 05/09/20 05/09/20 Unknown History Active Meds: Active Medications Acetaminophen (Acetaminophen 325 Mg Tab) 650 mg PO Q6H PRN PRN Reason: Pain, Mild (1-3) Aspirin (Aspirin Ec 81 Mg Tab) 81 mg PO QDAY [facility] Last Admin: 05/10/20 09:42 Dose: 81 mg Documented by: Atorvastatin Calcium (Atorvastatin 40 Mg Tab) 40 mg PO QHS [facility] Last Admin: 05/09/20 23:07 Dose: 40 mg Documented by: Furosemide (Furosemide 40 Mg Tab) 40 mg PO DAILY@0600 [facility] Last Admin: 05/10/20 05:22 Dose: 40 mg Documented by: Heparin Sodium (Porcine) (Heparin 5,000 Unit/1 Ml Vial) 5,000 unit SUB-Q Q8HR [facility] Last Admin: 05/10/20 14:02 Dose: 5,000 unit Documented by: Lisinopril (Lisinopril 5 Mg Tab) 5 mg PO QDAY [facility] Last Admin: 05/10/20 09:42 Dose: 5 mg Documented by: Metoprolol Succinate (Metoprolol Succinate Xl 50 Mg Tab) 50 mg PO QDAY [facility] Last Admin: 05/10/20 09:42 Dose: 50 mg Documented by: Morphine Sulfate (Morphine 4 Mg/1 Ml Inj) 2 mg IV Q5MIN PRN PRN Reason: Chest Pain Nitroglycerin (Nitroglycerin 0.4 Mg Tab Subl) 0.4 mg SL Q5M PRN PRN Reason: chest pain Pantoprazole Sodium (Pantoprazole 40 Mg Tab) 40 mg PO QDAY [facility] Last Admin: 05/10/20 09:42 Dose: 40 mg Documented by: Ranolazine (Ranolazine Er 500 Mg Tab 12hr) 500 mg PO BID [facility] Last Admin: 05/10/20 09:42 Dose: 500 mg Documented by: Sertraline HCl (Sertraline 50 Mg Tab) 50 mg PO QHS [facility] Last Admin: 05/09/20 23:07 Dose: 50 mg Documented by: Sodium Chloride (Sodium Chloride 0.9% 10 Ml Flush Syringe) 10 ml IV PRN PRN PRN Reason: LINE FLUSH Trazodone HCl (Trazodone 50 Mg Tab) 50 mg PO TID [facility] Last Admin: 05/10/20 14:02 Dose: 50 mg Documented by: Review of Systems Constitutional: no fever, no chills Ears, nose, mouth and throat: no ear pain, no ear discharge, no sore throat Cardiovascular: syncope, lightheadedness, no chest pain, no palpitations Respiratory: no cough, no hemoptysis Gastrointestinal: no nausea, no vomiting, no diarrhea, no constipation Genitourinary Female: no dysuria, no urinary frequency Rectal: no pain, no bleeding Musculoskeletal: no neck stiffness, no neck pain, no myalgias Integumentary: no rash, no pruritis Neurological: no weakness, no parathesias, no numbness, no tingling Endocrine: no cold intolerance, no heat intolerance Hematologic/Lymphatic: no easy bruising, no easy bleeding Allergic/Immunologic: no urticaria, no wheezing Physical Examination Vital Signs Vital Signs - 8 hr Vital Signs - 24 hr 05/09/20 05/09/20 05/09/20 19:00 20:00 21:00 Temperature Pulse Rate 78 85 78 Respiratory 16 16 Rate Blood Pressure 155/86 155/84 141/73 Blood Pressure 141/73 [Left] O2 Sat by Pulse 92 99 Oximetry 05/09/20 05/09/20 05/10/20 22:56 23:35 04:16 Temperature 99.3 F Pulse Rate 70 82 60 Respiratory 16 Rate Blood Pressure 118/58 Blood Pressure [Left] O2 Sat by Pulse 98 Oximetry 05/10/20 05/10/20 05/10/20 04:38 07:59 10:00 Temperature 98.5 F 98.0 F Pulse Rate 78 66 70 Respiratory 18 18 Rate Blood Pressure 127/69 88/51 Blood Pressure [Left] O2 Sat by Pulse 97 97 Oximetry General appearance: no acute distress HEENT: Positive: EOMI, Normocephaly, Mucus Membranes Moist Neck: Positive: neck supple, trachea midline Cardiac: Positive: Reg Rate and Rhythm, S1/S2 Lungs: Positive: clear to auscultation Neuro: Positive: Grossly Intact Abdomen: Positive: Soft, Active Bowel Sounds. Negative: Tender Skin: Positive: Clear. Negative: Rash Musculoskeletal: Normal Range of Motion Extremities: Present: normal. Absent: edema Results 05/09/20 19:13 05/09/20 19:13 Lipids 05/09/20 Range/Units 19:13 Triglycerides 67 (2-149) mg/dL Cholesterol 169 (50-199) mg/dL HDL Cholesterol 63 H (40-59) mg/dL Cholesterol/HDL Ratio 2.68 % CBC 05/09/20 Range/Units 19:13 WBC 3.1 L (4.5-11.0) K/mm3 RBC 4.14 (3.65-5.03) M/mm3 Hgb 14.0 (10.1-14.3) gm/dl Hct 40.9 (30.3-42.9) % Plt Count 167 (140-440) K/mm3 Lymph # (Auto) Critical Power Technician [place] # (Auto) Critical Power Technician Eos # (Auto) Critical Power Technician Baso # (Auto) Critical Power Technician Comprehensive Metabolic Panel 05/09/20 Range/Units 19:13 Sodium 136 L (137-145) mmol/L Potassium 4.5 (3.6-5.0) mmol/L Chloride 102.4 (98-107) mmol/L Carbon Dioxide 29 (22-30) mmol/L BUN 14 (7-17) mg/dL Creatinine 0.9 (0.6-1.2) mg/dL Glucose 94 (65-100) mg/dL Calcium 9.9 (8.4-10.2) mg/dL - Imaging and Cardiology EKG: image reviewed EKG interpretations - Telemetry EKG Rhythm: Sinus Rhythm AV and intraventricular conduction: left bundle branch block Assessment and Plan Will observe on the telemetry for arrhythmias. Obtain orthostatic parameters. 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 - Patient Problems (1) Syncope Current Visit: Yes Status: Acute (2) Ischemic cardiomyopathy Current Visit: Yes Status: Chronic (3) Chronic HFrEF (heart failure with reduced ejection fraction) Current Visit: Yes Status: Chronic (4) CAD (coronary artery disease) Current Visit: Yes Status: Chronic Qualifiers: Coronary Disease-Associated Artery/Lesion type: [place] artery (5) Stented coronary artery Current Visit: Yes Status: Chronic (6) HTN (hypertension) Current Visit: Yes Status: Chronic Qualifiers: Hypertension type: essential hypertension Qualified Code(s): I10 - Essential (primary) hypertension (7) LBBB (left bundle branch block) Current Visit: Yes Status: Chronic (8) Diabetes mellitus Current Visit: Yes Status: Chronic
[2020-05-10] MEDS: SERTRALINE 50 MG TAB PO SCH (22:03)
[2020-05-11] MEDS: HEPARIN 5,000 UNIT/1 ML VIAL SUB-Q SCH ×3 (06:24→21:22)
[2020-05-11] MEDS: FUROSEMIDE 40 MG TAB PO SCH (06:24)
[2020-05-11] MEDS ORDERED: REGADENOSON 0.4 MG/5 ML INJ IV SCH (07:00)
--- NOTE | 2020-05-11 10:17 | Progress Note ---
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 Gil presented with c/o SOB and chest pain since last night. Patient complaining of sharp chest pain which is 3/10 left-sided intermittent substernal chest pressure rating to the neck as detailed worsening dyspnea on exertion and lightheadedness Patient denies cough or cold symptoms, fever, loss of sense of taste or smell. In the emergency room initial cardiac enzyme is negative troponin is 0.010 and BNP is 1757. Patient admitted for evaluation (1) Chest pain - Unstable angina EKG shows LLB which is old. Troponin - -ve Continue Aspirin , statins Had a negative stress test August 2019. Cancelled stress test Cardiology evaluation appreciated Echocardiogram pending (2) Acute on chronic systolic CHF (congestive heart failure) proBNP 1757 Holding Lasix due to borderline low blood pressure. Holding Entresto as well due to borderline low blood pressure Metoprolol with holding parameters Echocardiogram Cardiology evaluation Eventually needs ICD or SCHOLASTIC APTITUDE TEST GRADER given severe cardiomyopathy (3) CAD (coronary artery disease) Aspirin Statins Cardiology evaluation Plan stress test performed in August 2019 showed no reversible ischemia as per cardiology (4) Syncope likely orthostatic hypotension Monitor Orthostatic vital signs. Hold BP medications and entresto Echocardiogram pending Cardiology following. She will ultimately need ICD or SCHOLASTIC APTITUDE TEST GRADER given severe cardiomyopathy as per cardiology Monitor on telemetry (4) DVT prophylaxis Heparin 5000 units subcu every 8 hours. History Interval history: 05/10. No complaints Cardiology consulted May need a stress test - ordered 05/11. Has no complaints this morning Had a stress test less than a year ago. Cardiology following - may need ICD or SCHOLASTIC APTITUDE TEST GRADER Her BP is low - holding entresto and lasix for now Continue BB with holding parameters Hospitalist Physical - Constitutional Vitals: Temp Pulse Resp BP Pulse Ox 98.9 F 63 17 95/76 100 05/11/20 08:26 05/11/20 08:54 05/11/20 08:54 05/11/20 08:54 05/11/20 08:54 HEART Score - HEART Score EKG: Non-specific Age: > 65 Risk factors: > 3 risk factors or hx of atherosclerotic disease Troponin: Troponin T < 0.010 ng/mL (0.00-0.029) 05/09/20 19:13 Troponin: < normal limit Results - Labs CBC & Chem 7: 05/09/20 19:13 05/09/20 19:13 Labs: Laboratory Last Values WBC 3.1 K/mm3 (4.5-11.0) L 05/09/20 19:13 RBC 4.14 M/mm3 (3.65-5.03) 05/09/20 19:13 Hgb 14.0 gm/dl (10.1-14.3) 05/09/20 19:13 Hct 40.9 % (30.3-42.9) 05/09/20 19:13 MCV 99 fl (79-97) H 05/09/20 19:13 MCH 34 pg (28-32) H 05/09/20 19:13 MCHC 34 % (30-34) 05/09/20 19:13 RDW 13.0 % (13.2-15.2) L 05/09/20 19:13 Plt Count 167 K/mm3 (140-440) 05/09/20 19:13 Lymph % (Auto) Crew Clerk 05/09/20 19:13 [place] % (Auto) Crew Clerk 05/09/20 19:13 Eos % (Auto) Crew Clerk 05/09/20 19:13 Baso % (Auto) Crew Clerk 05/09/20 19:13 Lymph # (Auto) Crew Clerk 05/09/20 19:13 [place] # (Auto) Crew Clerk 05/09/20 19:13 Eos # (Auto) Crew Clerk 05/09/20 19:13 Baso # (Auto) Crew Clerk 05/09/20 19:13 Seg Neutrophils % Crew Clerk 05/09/20 19:13 Seg Neutrophils # Crew Clerk 05/09/20 19:13 PT 14.2 Sec. (12.2-14.9) 05/09/20 15:11 INR 1.12 (0.87-1.13) 05/09/20 15:11 APTT 29.5 Sec. (24.2-36.6) 05/09/20 15:11 D-Dimer 228.57 ng/mlDDU (0-234) 05/09/20 15:11 ABG pH 7.382 pH Units (7.350-7.450) 05/09/20 17:10 ABG pCO2 42.6 mm Hg 05/09/20 17:10 ABG pO2 78.3 mm Hg (80.0-90.0) L 05/09/20 17:10 ABG HCO3 24.8 mmol/L (20.0-26.0) 05/09/20 17:10 ABG O2 Saturation 95.8 % (95.0-99.0) 05/09/20 17:10 ABG O2 Content 18.0 (0.0-44) 05/09/20 17:10 ABG Base Excess -0.4 mmol/L (-2.0-3.0) 05/09/20 17:10 ABG Hemoglobin 13.6 gm/dl (12.0-16.0) 05/09/20 17:10 ABG Carboxyhemoglobin 1.4 % (0.0-5.0) 05/09/20 17:10 ABG Methemoglobin 0.5 % (0.0-1.5) 05/09/20 17:10 Oxyhemoglobin 94.0 % (95.0-99.0) L 05/09/20 17:10 FiO2 21 % 05/09/20 17:10 Sodium 136 mmol/L (137-145) L 05/09/20 19:13 Potassium 4.5 mmol/L (3.6-5.0) 05/09/20 19:13 Chloride 102.4 mmol/L (98-107) 05/09/20 19:13 Carbon Dioxide 29 mmol/L (22-30) 05/09/20 19:13 Anion Gap 9 mmol/L 05/09/20 19:13 BUN 14 mg/dL (7-17) 05/09/20 19:13 Creatinine 0.9 mg/dL (0.6-1.2) 05/09/20 19:13 Estimated GFR > 60 ml/min 05/09/20 19:13 BUN/Creatinine Ratio 16 % 05/09/20 19:13 Glucose 94 mg/dL (65-100) 05/09/20 19:13 Calcium 9.9 mg/dL (8.4-10.2) 05/09/20 19:13 Troponin T < 0.010 ng/mL (0.00-0.029) 05/09/20 19:13 NT-Pro-B Natriuret Pep 1757 pg/mL (0-900) H 05/09/20 15:11 Triglycerides 67 mg/dL (2-149) 05/09/20 19:13 Cholesterol 169 mg/dL (50-199) 05/09/20 19:13 LDL Cholesterol Direct 104 mg/dL (50-130) 05/09/20 19:13 HDL Cholesterol 63 mg/dL (40-59) H 05/09/20 19:13 Cholesterol/HDL Ratio 2.68 % 05/09/20 19:13 - Diagnostic Impressions Diagnostic Impressions: Echocardiogram 05/09/20 18:19 Transthoracic Echocardiogram Indication: Chest Pain BP: 127/69 Conclusions *The estimated ejection fraction is 20-25%. *There is mild mitral regurgitation. *There is mild tricuspid regurgitation. *The left ventricular chamber size is normal. *Mild concentric left ventricular hypertrophy is observed. *Global left ventricular systolic function is severely decreased. *The estimated ejection fraction is 15-20%. *Abnormal left ventricular diastolic filling is observed, consistent with impaired relaxation. *Right ventricular size and systolic function are within normal limits. Findings Procedure Info: The study quality is fair. Left Ventricle: The left ventricular chamber size is normal. Mild concentric left ventricular hypertrophy is observed. Severe global hypokinesis of the left ventricle is observed. Global left ventricular systolic function is severely decreased. The estimated ejection fraction is 15-20%. Abnormal left ventricular diastolic filling is observed, consistent with impaired relaxation. Left Atrium: The left atrium is normal in size with no visual thrombus identified. Right Ventricle: The right ventricular chamber size and systolic function are within normal limits. Right Atrium: The right atrium appears normal. Aortic Valve: The aortic valve is trileaflet. Mild aortic leaflet calcification is visualized. Mild aortic cusp sclerosis is present. There is no evidence of aortic regurgitation. There is no evidence of aortic stenosis. Mitral Valve: There is posterior mitral annular calcification. The mitral valve leaflets are mildly thickened. There is mild mitral regurgitation. There is no evidence of mitral stenosis. Tricuspid Valve: The tricuspid valve leaflets are normal. There is mild tricuspid regurgitation. The right ventricular systolic pressure is calculated at 15 mmHg. There is no tricuspid stenosis. Pulmonic Valve: The pulmonic valve is not well visualized. There is mild pulmonic regurgitation. There is no pulmonic stenosis. Pericardium: The pericardium appears normal. There is no pericardial effusion. Aorta: The aorta appears normal. There is no dilatation of the ascending aorta. There is no dilatation of the aortic root. Pulmonary Artery: The main pulmonary artery is not well visualized. Venous: The inferior vena cava appears normal in size. There is a greater than 50% respiratory change in the inferior vena cava dimension. Measurements Chambers 2D Name Value Normal Range IVSd (2D) 1.21 cm (0.6 - 1.1) LVPWd (2D) 1.2 cm (0.6 - 1.1) LVIDd (2D) 5.19 cm (3.7 - 5.6) LVIDs (2D) 4.55 cm (2 - 3.8) LV FS (2D) 12.37 % - EF Teichholz (2D) 26.49 % - Ao root diameter (2D) 2.71 cm (2 - 3.7) Volumes/Mass Name Value Normal Range LA ESV SP 4CH (A/L) 42.54 ml - LA ESV SP 2CH (A/L) 57.04 ml - LA ESV BP (A/L) 50.65 ml - LA ESV BP (A/L) index 32.47 ml/m2 - LA ESV SP 4CH (MOD) 43.2 ml - LA ESV SP 2CH (MOD) 54.79 ml - LA ESV BP (MOD) 49.67 ml - LA ESV BP (MOD) index 31.84 ml/m2 - LV EDV SP 4CH (MOD) 119.13 ml - LV ESV SP 4CH (MOD) 89.7 ml - EF SP 4CH (MOD) 24.71 % - LV EDV SP 2CH (MOD) 81.38 ml - LV ESV SP 2CH (MOD) 56.6 ml - EF SP 2CH (MOD) 30.45 % - LV EDV BP 98.76 ml - LV ESV BP 73.61 ml - BP EF (MOD) 25.47 % - Diastolic/Systolic Function Name Value Normal Range MV E-wave Vmax 0.53 m/sec - MV deceleration time 201.47 msec - MV A-wave Vmax 0.85 m/sec - MV E:A ratio 0.62 ratio - Aortic Valve Name Value Normal Range AV Vmax 1.29 m/sec - AV VTI 21.39 cm - AV peak gradient 6.69 mmHg - AV mean gradient 3.42 mmHg - LVOT diameter 1.81 cm - LVOT Vmax 0.64 m/sec - LVOT VTI 12.84 cm - LVOT peak gradient 1.65 mmHg - LVOT mean gradient 0.88 mmHg - SV LVOT 32.9 ml - BLANQUITA (continuity Vmax) 1.27 cm2 - BLANQUITA (continuity VTI) 1.54 cm2 - Ascending Ao 2.89 cm - Mitral Valve Name Value Normal Range MV Vmax 1 m/sec - MV VTI 21.09 cm - MV peak gradient 3.99 mmHg - MV mean gradient 1.44 mmHg - MV PHT 58.87 msec - MVA (PHT) 3.74 cm2 - MVA (continuity VTI) 1.56 cm2 - Tricuspid Valve Name Value Normal Range TV E-wave Vmax 0.27 m/sec - TR Vmax 1.75 m/sec - TR peak gradient 12.24 mmHg - RAP 3 mmHg - RVSP 15 mmHg - Pulmonic Valve/Qp:Qs Name Value Normal Range PV Vmax 0.72 m/sec - PV peak gradient 2.08 mmHg - HI end-diastolic Vmax 0.97 m/sec - RVOT Vmax 0.56 m/sec - RVOT VTI 7.24 cm - RVOT peak gradient 1.24 mmHg - PV acceleration time 106.57 msec - Tripp/IV: Voiding Method Toilet Active Medications - Current Medications Current Medications: Generic Name Dose Route Start Last Admin Trade Name Freq PRN Reason Stop Dose Admin Acetaminophen 650 mg 05/09/20 18:18 Acetaminophen 325 Mg Tab PO Q6H PRN Pain, Mild (1-3) Aspirin 81 mg 05/10/20 10:00 05/10/20 09:42 Aspirin Ec 81 Mg Tab PO 81 mg QDAY ERON Administration Atorvastatin Calcium 40 mg 05/09/20 22:00 05/10/20 22:03 Atorvastatin 40 Mg Tab PO 40 mg QHS ERON Administration Heparin Sodium (Porcine) 5,000 unit 05/09/20 22:00 05/11/20 06:24 Heparin 5,000 Unit/1 Ml Vial SUB-Q 5,000 unit Q8HR ERON Administration Metoprolol Succinate 50 mg 05/10/20 10:00 05/10/20 09:42 Metoprolol Succinate Xl 50 Mg Tab PO 50 mg QDAY ERON Administration Morphine Sulfate 2 mg 05/09/20 18:18 Morphine 4 Mg/1 Ml Inj IV Q5MIN PRN Chest Pain Nitroglycerin 0.4 mg 05/09/20 18:20 Nitroglycerin 0.4 Mg Tab Subl SL Q5M PRN chest pain Pantoprazole Sodium 40 mg 05/10/20 10:00 05/10/20 09:42 Pantoprazole 40 Mg Tab PO 40 mg QDAY ERON Administration Ranolazine 500 mg 05/09/20 22:00 05/10/20 22:03 Ranolazine Er 500 Mg Tab 12hr PO 500 mg BID ERON Administration Sertraline HCl 50 mg 05/09/20 22:00 05/10/20 22:03 Sertraline 50 Mg Tab PO 50 mg QHS ERON Administration Sodium Chloride 10 ml 05/09/20 18:18 Sodium Chloride 0.9% 10 Ml Flush Syringe IV PRN PRN LINE FLUSH Trazodone HCl 50 mg 05/09/20 20:00 05/10/20 20:01 Trazodone 50 Mg Tab PO 50 mg TID ERON Administration Nutrition/Malnutrition Assess - Dietary Evaluation Nutrition/Malnutrition Findings: Nutrition Notes Start: 05/10/20 09:14 Freq: Status: Active Protocol: Document 05/10/20 09:14 LP (Rec: 05/10/20 09:19 LP [id number]) Nutrition Notes Need for Assessment generated from: MD Order,color room attendant,MST Initial or Follow up Assessment Current Diagnosis Diabetes,Hypertension,Heart Failure,Stroke Other Pertinent Diagnosis chest pain, breast CA s/p right mastectomy Current Diet Cardiac Labs/Tests Na 136 Pertinent Medications Lasix Height 5 ft Weight 59.874 kg [place] Body Weight (kg) 45.45 BMI 25.7 Weight Status Overweight Subjective/Other Information Consult for poor oral intakes. Unable to see pt at time of visit. Burn Absent Trauma Absent GI Symptoms None Food Allergy No Minimum of two criteria No physical signs of malnutrition #1 Nutrition Diagnosis Predicted suboptimal energy intake Etiology Advanced age As Evidenced by Signs and Symptoms No intakes recorded and unable to obtain nutrition hx Is patient on ventilator? No Is Patient Ambulatory and/or Out of Bed Yes REE-([facility]-ambulatory/OOB) [ [id number] [id number]] Calculation Used for Recommendations Paulino Leblanc Additional Notes Protein needs are 60-72g (1-1. 2g/kg) Fluid needs are 1ml/kcal Nutrition Intervention Change Diet Order: Continue Add Supplement/Snack (indicate name/kcal Ensure Enlive BID /protein ) Provides kCal: 700 Provides Protein (gm) 40 Goal #1 Meet at least 80% of kcal and protein needs Follow-Up By: 05/12/20 Additional Comments Follow assessment needs and intakes
[2020-05-11] MEDS: traZODone 50 MG TAB PO SCH ×3 (11:28→20:50)
[2020-05-11] MEDS: RANOLAZINE ER 500 MG TAB 12HR PO SCH ×2 (11:29→21:23)
[2020-05-11] MEDS: METOPROLOL SUCCINATE XL 50 MG TAB PO SCH (11:29)
--- NOTE | 2020-05-11 12:07 | Progress Note ---
Assessment and Plan Tele reviewed: Sinus Rhythm HR 70. Will continue to monitor for arrhythmia. Echo reviewed: EF 20%, Global left ventricular systolic dysfunction severely decreased, mild MR and TR, Left Ventricle impaired relaxation. Home Beta Arely, ACEI/ARB held in setting of hypotension. Of note, bradycardia is documented on VS flowsheet. Review of telemetry since initiation reveals normal sinus rhythm with HR WNL, HR low 62BPM. In setting of syncope and long standing cardiomyopathy with LBBB, pt may be a candidate for BiV AICD. EP consulted today. Await EP recs. Will Follow. This pt was seen in conjunction with Dr Maxwell, who agrees with this assessment and plan. - Patient Problems (1) Syncope Current Visit: Yes Status: Acute (2) Ischemic cardiomyopathy Current Visit: Yes Status: Chronic (3) Chronic HFrEF (heart failure with reduced ejection fraction) Current Visit: Yes Status: Chronic (4) CAD (coronary artery disease) Current Visit: Yes Status: Chronic Qualifiers: Coronary Disease-Associated Artery/Lesion type: [place] artery (5) Stented coronary artery Current Visit: Yes Status: Chronic (6) HTN (hypertension) Current Visit: Yes Status: Chronic Qualifiers: Hypertension type: essential hypertension Qualified Code(s): I10 - Essential (primary) hypertension (7) LBBB (left bundle branch block) Current Visit: Yes Status: Chronic (8) Diabetes mellitus Current Visit: Yes Status: Chronic Subjective Date of service: 05/11/20 Principal diagnosis: Weakness Interval history: Pt is resting comfortably in in bed. She continues to have significant weakness and fatigue moving to the bathroom. Tele reviewed: Sinus Rhythm HR 70. Echo reviewed: EF 20%, Global left ventricular systolic dysfunction severely decreased, mild MR and TR, Left Ventricle impaired relaxation. Objective Last Vital Signs Temp 97.9 F 05/11/20 11:55 Pulse 80 05/11/20 11:55 Resp 18 05/11/20 11:55 BP 140/80 05/11/20 11:55 Pulse Ox 100 05/11/20 11:55 - Physical Examination General: Appears Well HEENT: Positive: EOMI, Normocephaly, Mucus Membranes Moist Neck: Positive: neck supple, trachea midline Cardiac: Positive: Reg Rate and Rhythm, S1/S2 Lungs: Positive: clear to auscultation, Normal Breath Sounds Neuro: Positive: Grossly Intact Abdomen: Positive: Unremarkable, Soft, Active Bowel Sounds. Negative: Tender Skin: Positive: Clear. Negative: Rash, Wound Musculoskeletal: No Pain, Normal Range of Motion Extremities: Present: upper extr. pulses, lower extr. pulses. Absent: edema - Imaging and Cardiology EKG: report reviewed, image reviewed Echo: report reviewed (Echo reviewed: EF 20%, Global left ventricular systolic dysfunction severely decreased, mild MR and TR, Left Ventricle impaired relaxation.) - Telemetry EKG Rhythm: Sinus Rhythm - EKG Sinus rhythms and dysrhythmias: sinus rhythm AV and intraventricular conduction: left bundle branch block
[2020-05-11] MEDS: PANTOPRAZOLE 40 MG TAB PO SCH (13:04)
[2020-05-11] MEDS: ASPIRIN EC 81 MG TAB PO SCH (13:04)
[2020-05-11] MEDS: SERTRALINE 50 MG TAB PO SCH (21:23)
[2020-05-12] MEDS ORDERED: SODIUM CHLORIDE IV ONE (00:04)
[2020-05-12] MEDS ORDERED: SODIUM CHLORIDE 0.9% 1000 ML 1,000 ML ONE ×2 (00:09→15:14)
[2020-05-12] MEDS: HEPARIN 5,000 UNIT/1 ML VIAL SUB-Q SCH ×3 (05:21→21:48)
[2020-05-12 06:27] LABS: Calcium 8.9 mg/dL (8.4-10.2)
[2020-05-12 06:28] LABS: INR 1.09 (0.87-1.13)
[2020-05-12 06:32] LABS: Hematocrit 33.4 % (30.3-42.9); Hemoglobin 11.5 gm/dl (10.1-14.3); Mean Corpuscular HGB Conc 34 % (30-34); Mean Corpuscular Volume 99 fl (79-97); Platelet Count 147 K/mm3 (140-440); Red Blood Count 3.37 M/mm3 (3.65-5.03); Red Cell Distribution Width 13.3 % (13.2-15.2)
--- NOTE | 2020-05-12 09:34 | Progress Note ---
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 Gil presented with c/o SOB and chest pain since last night. Patient complaining of sharp chest pain which is 3/10 left-sided intermittent substernal chest pressure rating to the neck as detailed worsening dyspnea on exertion and lightheadedness Patient denies cough or cold symptoms, fever, loss of sense of taste or smell. In the emergency room initial cardiac enzyme is negative troponin is 0.010 and BNP is 1757. Patient admitted for evaluation 05/12: Patient clinically stable this morning awaiting for EP evaluation and management is being considered for biventricular pacemaker. INES has been held secondary to hypotension and also renal failure. We will continue to monitor closely. Echocardiogram revealed an ejection fraction of 20%. (1) Chest pain - Unstable angina EKG shows LLB which is old. Troponin - -ve Continue Aspirin , statins Had a negative stress test August 2019. Cancelled stress test Cardiology evaluation appreciated Echocardiogram pending (2) Acute on chronic systolic CHF (congestive heart failure) proBNP 1757 Holding Lasix due to borderline low blood pressure. Holding Entresto as well due to borderline low blood pressure Metoprolol with holding parameters Echocardiogram Cardiology evaluation Eventually needs ICD or CUSTOM LE[employer]ODU[employer] MAKER given severe cardiomyopathy (3) CAD (coronary artery disease) Aspirin Statins Cardiology evaluation Plan stress test performed in August 2019 showed no reversible ischemia as per cardiology (4) Syncope likely orthostatic hypotension Monitor Orthostatic vital signs. Hold BP medications and entresto Echocardiogram pending Cardiology following. She will ultimately need ICD or CUSTOM LE[employer]KER given severe cardiomyopathy as per cardiology Monitor on telemetry (4) left bundle branch block (5) Diabetes mellitus (6) Acute kidney injury likely secondary to vasomotor nephropathy (7) Hypotension (8) DVT prophylaxis Heparin 5000 units subcu every 8 hours. History Interval history: Patient seen and examined no complaints of dizziness at this time. Hospitalist Physical - Physical exam Narrative exam: VITAL SIGNS: Reviewed. GENERAL: The patient appears normally developed, Vital signs as documented. HEAD: No signs of head trauma. EYES: Pupils are equal. Extraocular motions intact. EARS: Hearing grossly intact. MOUTH: Oropharynx is normal. NECK: No adenopathy, no JVD. CHEST: Chest with clear breath sounds bilaterally. No wheezes, rales, or rhonchi. CARDIAC: Regular rate and rhythm. S1 and S2, with systolic ejection murmurs, and no gallops, or rubs. VASCULAR: No Edema. Peripheral pulses normal and equal in all extremities. ABDOMEN: Soft, non tender and non distended. No rebound or guarding, and no masses palpated. Bowel Sounds normal. MUSCULOSKELETAL: Good range of motion of all major joints. Extremities without clubbing, cyanosis or edema. NEUROLOGIC EXAM: Alert and oriented x 3 No focal sensory or strength deficits. Speech normal. Follows commands. PSYCHIATRIC: Mood normal. SKIN: detail exam as documented in skin assessment - Constitutional Vitals: Temp Pulse Resp BP Pulse Ox 97.4 F L 138 H 16 80/47 100 05/12/20 04:10 05/12/20 08:26 05/12/20 04:10 05/12/20 08:26 05/12/20 08:26 General appearance: Present: no acute distress, well-nourished HEART Score - HEART Score EKG: Non-specific Age: > 65 Risk factors: > 3 risk factors or hx of atherosclerotic disease Troponin: Troponin T < 0.010 ng/mL (0.00-0.029) 05/09/20 19:13 Troponin: < normal limit Results - Labs CBC & Chem 7: 05/12/20 05:34 05/12/20 05:34 Labs: Laboratory Last Values WBC 2.8 K/mm3 (4.5-11.0) L 05/12/20 05:34 RBC 3.37 M/mm3 (3.65-5.03) L 05/12/20 05:34 Hgb 11.5 gm/dl (10.1-14.3) 05/12/20 05:34 Hct 33.4 % (30.3-42.9) D 05/12/20 05:34 MCV 99 fl (79-97) H 05/12/20 05:34 MCH 34 pg (28-32) H 05/12/20 05:34 MCHC 34 % (30-34) 05/12/20 05:34 RDW 13.3 % (13.2-15.2) 05/12/20 05:34 Plt Count 147 K/mm3 (140-440) 05/12/20 05:34 Lymph % (Auto) Cassandra Developer 05/09/20 19:13 Henry % (Auto) Cassandra Developer 05/12/20 05:34 Eos % (Auto) Cassandra Developer 05/09/20 19:13 Baso % (Auto) Cassandra Developer 05/09/20 19:13 Lymph # (Auto) Cassandra Developer 05/09/20 19:13 Henry # (Auto) Cassandra Developer 05/09/20 19:13 Eos # (Auto) Cassandra Developer 05/09/20 19:13 Baso # (Auto) Cassandra Developer 05/09/20 19:13 Seg Neutrophils % Cassandra Developer 05/09/20 19:13 Seg Neutrophils # Cassandra Developer 05/09/20 19:13 PT 13.9 Sec. (12.2-14.9) 05/12/20 05:34 INR 1.09 (0.87-1.13) 05/12/20 05:34 APTT 29.5 Sec. (24.2-36.6) 05/09/20 15:11 D-Dimer 228.57 ng/mlDDU (0-234) 05/09/20 15:11 ABG pH 7.382 pH Units (7.350-7.450) 05/09/20 17:10 ABG pCO2 42.6 mm Hg 05/09/20 17:10 ABG pO2 78.3 mm Hg (80.0-90.0) L 05/09/20 17:10 ABG HCO3 24.8 mmol/L (20.0-26.0) 05/09/20 17:10 ABG O2 Saturation 95.8 % (95.0-99.0) 05/09/20 17:10 ABG O2 Content 18.0 (0.0-44) 05/09/20 17:10 ABG Base Excess -0.4 mmol/L (-2.0-3.0) 05/09/20 17:10 ABG Hemoglobin 13.6 gm/dl (12.0-16.0) 05/09/20 17:10 ABG Carboxyhemoglobin 1.4 % (0.0-5.0) 05/09/20 17:10 ABG Methemoglobin 0.5 % (0.0-1.5) 05/09/20 17:10 Oxyhemoglobin 94.0 % (95.0-99.0) L 05/09/20 17:10 FiO2 21 % 05/09/20 17:10 Sodium 134 mmol/L (137-145) L 05/12/20 05:34 Potassium 4.3 mmol/L (3.6-5.0) 05/12/20 05:34 Chloride 99.9 mmol/L (98-107) 05/12/20 05:34 Carbon Dioxide 29 mmol/L (22-30) 05/12/20 05:34 Anion Gap 9 mmol/L 05/12/20 05:34 BUN 22 mg/dL (7-17) H 05/12/20 05:34 Creatinine 1.3 mg/dL (0.6-1.2) H 05/12/20 05:34 Estimated GFR 47 ml/min 05/12/20 05:34 BUN/Creatinine Ratio 17 % 05/12/20 05:34 Glucose 113 mg/dL (65-100) H 05/12/20 05:34 Calcium 8.9 mg/dL (8.4-10.2) 05/12/20 05:34 Troponin T < 0.010 ng/mL (0.00-0.029) 05/09/20 19:13 NT-Pro-B Natriuret Pep 1757 pg/mL (0-900) H 05/09/20 15:11 Triglycerides 67 mg/dL (2-149) 05/09/20 19:13 Cholesterol 169 mg/dL (50-199) 05/09/20 19:13 LDL Cholesterol Direct 104 mg/dL (50-130) 05/09/20 19:13 HDL Cholesterol 63 mg/dL (40-59) H 05/09/20 19:13 Cholesterol/HDL Ratio 2.68 % 05/09/20 19:13 - Diagnostic Impressions Diagnostic Impressions: Echocardiogram 05/09/20 18:19 Transthoracic Echocardiogram Indication: Chest Pain BP: 127/69 Conclusions *The estimated ejection fraction is 20-25%. *There is mild mitral regurgitation. *There is mild tricuspid regurgitation. *The left ventricular chamber size is normal. *Mild concentric left ventricular hypertrophy is observed. *Global left ventricular systolic function is severely decreased. *The estimated ejection fraction is 15-20%. *Abnormal left ventricular diastolic filling is observed, consistent with impaired relaxation. *Right ventricular size and systolic function are within normal limits. Findings Procedure Info: The study quality is fair. Left Ventricle: The left ventricular chamber size is normal. Mild concentric left ventricular hypertrophy is observed. Severe global hypokinesis of the left ventricle is observed. Global left ventricular systolic function is severely decreased. The estimated ejection fraction is 15-20%. Abnormal left ventricular diastolic filling is observed, consistent with impaired relaxation. Left Atrium: The left atrium is normal in size with no visual thrombus identified. Right Ventricle: The right ventricular chamber size and systolic function are within normal limits. Right Atrium: The right atrium appears normal. Aortic Valve: The aortic valve is trileaflet. Mild aortic leaflet calcification is visualized. Mild aortic cusp sclerosis is present. There is no evidence of aortic regurgitation. There is no evidence of aortic stenosis. Mitral Valve: There is posterior mitral annular calcification. The mitral valve leaflets are mildly thickened. There is mild mitral regurgitation. There is no evidence of mitral stenosis. Tricuspid Valve: The tricuspid valve leaflets are normal. There is mild tricuspid regurgitation. The right ventricular systolic pressure is calculated at 15 mmHg. There is no tricuspid stenosis. Pulmonic Valve: The pulmonic valve is not well visualized. There is mild pulmonic regurgitation. There is no pulmonic stenosis. Pericardium: The pericardium appears normal. There is no pericardial effusion. Aorta: The aorta appears normal. There is no dilatation of the ascending aorta. There is no dilatation of the aortic root. Pulmonary Artery: The main pulmonary artery is not well visualized. Venous: The inferior vena cava appears normal in size. There is a greater than 50% respiratory change in the inferior vena cava dimension. Measurements Chambers 2D Name Value Normal Range IVSd (2D) 1.21 cm (0.6 - 1.1) LVPWd (2D) 1.2 cm (0.6 - 1.1) LVIDd (2D) 5.19 cm (3.7 - 5.6) LVIDs (2D) 4.55 cm (2 - 3.8) LV FS (2D) 12.37 % - EF Teichholz (2D) 26.49 % - Ao root diameter (2D) 2.71 cm (2 - 3.7) Volumes/Mass Name Value Normal Range LA ESV SP 4CH (A/L) 42.54 ml - LA ESV SP 2CH (A/L) 57.04 ml - LA ESV BP (A/L) 50.65 ml - LA ESV BP (A/L) index 32.47 ml/m2 - LA ESV SP 4CH (MOD) 43.2 ml - LA ESV SP 2CH (MOD) 54.79 ml - LA ESV BP (MOD) 49.67 ml - LA ESV BP (MOD) index 31.84 ml/m2 - LV EDV SP 4CH (MOD) 119.13 ml - LV ESV SP 4CH (MOD) 89.7 ml - EF SP 4CH (MOD) 24.71 % - LV EDV SP 2CH (MOD) 81.38 ml - LV ESV SP 2CH (MOD) 56.6 ml - EF SP 2CH (MOD) 30.45 % - LV EDV BP 98.76 ml - LV ESV BP 73.61 ml - BP EF (MOD) 25.47 % - Diastolic/Systolic Function Name Value Normal Range MV E-wave Vmax 0.53 m/sec - MV deceleration time 201.47 msec - MV A-wave Vmax 0.85 m/sec - MV E:A ratio 0.62 ratio - Aortic Valve Name Value Normal Range AV Vmax 1.29 m/sec - AV VTI 21.39 cm - AV peak gradient 6.69 mmHg - AV mean gradient 3.42 mmHg - LVOT diameter 1.81 cm - LVOT Vmax 0.64 m/sec - LVOT VTI 12.84 cm - LVOT peak gradient 1.65 mmHg - LVOT mean gradient 0.88 mmHg - SV LVOT 32.9 ml - BLANQUITA (continuity Vmax) 1.27 cm2 - BLANQUITA (continuity VTI) 1.54 cm2 - Ascending Ao 2.89 cm - Mitral Valve Name Value Normal Range MV Vmax 1 m/sec - MV VTI 21.09 cm - MV peak gradient 3.99 mmHg - MV mean gradient 1.44 mmHg - MV PHT 58.87 msec - MVA (PHT) 3.74 cm2 - MVA (continuity VTI) 1.56 cm2 - Tricuspid Valve Name Value Normal Range TV E-wave Vmax 0.27 m/sec - TR Vmax 1.75 m/sec - TR peak gradient 12.24 mmHg - RAP 3 mmHg - RVSP 15 mmHg - Pulmonic Valve/Qp:Qs Name Value Normal Range PV Vmax 0.72 m/sec - PV peak gradient 2.08 mmHg - MN end-diastolic Vmax 0.97 m/sec - RVOT Vmax 0.56 m/sec - RVOT VTI 7.24 cm - RVOT peak gradient 1.24 mmHg - PV acceleration time 106.57 msec - Tripp/IV: Voiding Method Toilet Active Medications - Current Medications Current Medications: Generic Name Dose Route Start Last Admin Trade Name Freq PRN Reason Stop Dose Admin Acetaminophen 650 mg 05/09/20 18:18 Acetaminophen 325 Mg Tab PO Q6H PRN Pain, Mild (1-3) Aspirin 81 mg 05/10/20 10:00 05/11/20 13:04 Aspirin Ec 81 Mg Tab PO 81 mg QDAY ERON Administration Atorvastatin Calcium 40 mg 05/09/20 22:00 05/11/20 21:23 Atorvastatin 40 Mg Tab PO 40 mg QHS ERON Administration Heparin Sodium (Porcine) 5,000 unit 05/09/20 22:00 05/12/20 05:21 Heparin 5,000 Unit/1 Ml Vial SUB-Q 5,000 unit Q8HR ERON Administration Metoprolol Succinate 50 mg 05/10/20 10:00 05/11/20 11:29 Metoprolol Succinate Xl 50 Mg Tab PO Not Given QDAY ERON Morphine Sulfate 2 mg 05/09/20 18:18 Morphine 4 Mg/1 Ml Inj IV Q5MIN PRN Chest Pain Nitroglycerin 0.4 mg 05/09/20 18:20 Nitroglycerin 0.4 Mg Tab Subl SL Q5M PRN chest pain Pantoprazole Sodium 40 mg 05/10/20 10:00 05/11/20 13:04 Pantoprazole 40 Mg Tab PO 40 mg QDAY ERON Administration Ranolazine 500 mg 05/09/20 22:00 05/11/20 21:23 Ranolazine Er 500 Mg Tab 12hr PO 500 mg BID ERON Administration Sertraline HCl 50 mg 05/09/20 22:00 05/11/20 21:23 Sertraline 50 Mg Tab PO 50 mg QHS ERON Administration Sodium Chloride 10 ml 05/09/20 18:18 05/11/20 21:23 Sodium Chloride 0.9% 10 Ml Flush Syringe IV 10 ml PRN PRN Administration LINE FLUSH Trazodone HCl 50 mg 05/09/20 20:00 05/11/20 20:50 Trazodone 50 Mg Tab PO 50 mg TID ERON Administration Nutrition/Malnutrition Assess - Dietary Evaluation Nutrition/Malnutrition Findings: Nutrition Notes Start: 05/10/20 09:14 Freq: Status: Active Protocol: Document 05/10/20 09:14 LP (Rec: 05/10/20 09:19 LP [id number]) Nutrition Notes Need for Assessment generated from: MD Order,natural gas trader,MST Initial or Follow up Assessment Current Diagnosis Diabetes,Hypertension,Heart Failure,Stroke Other Pertinent Diagnosis chest pain, breast CA s/p right mastectomy Current Diet Cardiac Labs/Tests Na 136 Pertinent Medications Lasix Height 5 ft Weight 59.874 kg Davy Body Weight (kg) 45.45 BMI 25.7 Weight Status Overweight Subjective/Other Information Consult for poor oral intakes. Unable to see pt at time of visit. Burn Absent Trauma Absent GI Symptoms None Food Allergy No Minimum of two criteria No physical signs of malnutrition #1 Nutrition Diagnosis Predicted suboptimal energy intake Etiology Advanced age As Evidenced by Signs and Symptoms No intakes recorded and unable to obtain nutrition hx Is patient on ventilator? No Is Patient Ambulatory and/or Out of Bed Yes REE-([facility]-ambulatory/OOB) [ 1254.812 [id number]] Calculation Used for Recommendations [facility] Additional Notes Protein needs are 60-72g (1-1. 2g/kg) Fluid needs are 1ml/kcal Nutrition Intervention Change Diet Order: Continue Add Supplement/Snack (indicate name/kcal Ensure Enlive BID /protein ) Provides kCal: 700 Provides Protein (gm) 40 Goal #1 Meet at least 80% of kcal and protein needs Follow-Up By: 05/12/20 Additional Comments Follow assessment needs and intakes
--- NOTE | 2020-05-12 10:49 | Progress Note ---
Assessment and Plan Pt continues to be hypotensive. Pt received NS bolus overnight after low BP 75/37. Initiate gentle IVF. Tele reviewed: Sinus Rhythm HR 65, low of 60bpm. Home Beta Arely, ACEI/ARB held in setting of hypotension. Pt is being evaluated today by EP for possible BiV AICD. Will await EP recs. Will Follow. This pt was seen in conjunction with Dr Jodie Bailey, who agrees with this assessment and plan. - Patient Problems (1) Syncope Current Visit: Yes Status: Acute (2) Ischemic cardiomyopathy Current Visit: Yes Status: Chronic (3) Chronic HFrEF (heart failure with reduced ejection fraction) Current Visit: Yes Status: Chronic (4) CAD (coronary artery disease) Current Visit: Yes Status: Chronic Qualifiers: Coronary Disease-Associated Artery/Lesion type: [place] artery (5) Stented coronary artery Current Visit: Yes Status: Chronic (6) HTN (hypertension) Current Visit: Yes Status: Chronic Qualifiers: Hypertension type: essential hypertension Qualified Code(s): I10 - Essential (primary) hypertension (7) LBBB (left bundle branch block) Current Visit: Yes Status: Chronic (8) Diabetes mellitus Current Visit: Yes Status: Chronic Subjective Date of service: 05/12/20 Principal diagnosis: Weakness Interval history: Pt is resting comfortably in in bed. She continues to have significant weakness and fatigue moving to the bathroom. Tele reviewed: Sinus Rhythm HR 65. Pt has been NPO since midnight pending EP evaluation. Objective Last Vital Signs Temp 97.4 F L 05/12/20 04:10 Pulse 138 H 05/12/20 08:26 Resp 16 05/12/20 04:10 BP 80/47 05/12/20 08:26 Pulse Ox 100 05/12/20 08:26 - Physical Examination General: Appears Well HEENT: Positive: PERRL, EOMI, Normocephaly, Mucus Membranes Moist Neck: Positive: neck supple, trachea midline Cardiac: Positive: Reg Rate and Rhythm, S1/S2 Lungs: Positive: clear to auscultation, Normal Breath Sounds Neuro: Positive: Grossly Intact Abdomen: Positive: Unremarkable, Soft, Active Bowel Sounds. Negative: Tender Skin: Positive: Clear. Negative: Rash, Wound Musculoskeletal: No Pain, Normal Range of Motion Extremities: Present: upper extr. pulses, lower extr. pulses. Absent: edema - Labs and Meds Coagulation 05/12/20 Range/Units 05:34 PT 13.9 (12.2-14.9) Sec. INR 1.09 (0.87-1.13) CBC 05/12/20 Range/Units 05:34 WBC 2.8 L (4.5-11.0) K/mm3 RBC 3.37 L (3.65-5.03) M/mm3 Hgb 11.5 (10.1-14.3) gm/dl Hct 33.4 D (30.3-42.9) % Plt Count 147 (140-440) K/mm3 Comprehensive Metabolic Panel 05/12/20 Range/Units 05:34 Sodium 134 L (137-145) mmol/L Potassium 4.3 (3.6-5.0) mmol/L Chloride 99.9 (98-107) mmol/L Carbon Dioxide 29 (22-30) mmol/L BUN 22 H (7-17) mg/dL Creatinine 1.3 H (0.6-1.2) mg/dL Glucose 113 H (65-100) mg/dL Calcium 8.9 (8.4-10.2) mg/dL - Imaging and Cardiology EKG: report reviewed, image reviewed Echo: report reviewed (Echo reviewed: EF 20%, Global left ventricular systolic dysfunction severely decreased, mild MR and TR, Left Ventricle impaired relaxation.) - Telemetry EKG Rhythm: Sinus Rhythm - EKG Sinus rhythms and dysrhythmias: sinus rhythm AV and intraventricular conduction: left bundle branch block
[2020-05-12] MEDS ORDERED: SODIUM CHLORIDE 0.9% 1000 ML 1,000 ML IV SCH (11:30)
[2020-05-12 11:58] LABS: Platelet Estimate Consistent w Auto; RBC Morphology Normal; Total Cells Counted 100
[2020-05-12] MEDS ORDERED: SODIUM CHLORIDE IRRI 1000 ML 1,000 ML, .VANCOMYCIN VIAL 1,000 MG IR ONE (13:38)
[2020-05-12] MEDS ORDERED: SODIUM CHLORIDE 0.45% 1000 ML 1,000 ML IV SCH (14:00)
[2020-05-12] MEDS ORDERED: NORepinephrine/NS 4 MG-250 ML 4 MG/250 ML BAG IV SCH (14:00)
[2020-05-12] MEDS ORDERED: SODIUM CHLORIDE IRRI 500 ML 500 ML IR ONE (14:04)
[2020-05-12] MEDS ORDERED: LIDOCAINE MPF (2%) 20 MG/1 ML VIAL 5 ML ONE (14:04)
[2020-05-12] MEDS ORDERED: ceFAZolin/Water 2 GM/20 ML 2 GM/20 ML SYRINGE IV ONE (14:04)
[2020-05-12] MEDS ORDERED: LIDOCAINE (1%) 10 MG/1 ML VIAL 20 ML MDV ONE (14:04)
[2020-05-12] MEDS ORDERED: BUPIVACAINE/PF (0.5%) 5 MG/1 ML 30 ML VIAL INFILTRATI ONE (14:04)
[2020-05-12] MEDS ORDERED: propofoL 200 MG/20 ML VIAL IV ONE ×4 (14:05→14:06)
[2020-05-12] MEDS ORDERED: MIDAZOLAM 2 MG/2 ML INJ ONE (14:05)
[2020-05-12] MEDS ORDERED: HYDROmorphone 1 MG/1 ML INJ ONE (14:05)
[2020-05-12] MEDS ORDERED: ePHEDrine SULFATE 50 MG/1 ML INJ ONE (14:06)
[2020-05-12] MEDS ORDERED: KETAMINE/STERILE WATER 50 MG/ML SYRINGE ONE (14:07)
[2020-05-12] MEDS ORDERED: SODIUM CHLORIDE 0.9% 500 ML 500 ML ONE (14:10)
--- NOTE | 2020-05-12 14:36 | Anesthesia Day of Surgery ---
Anesthesia Day of Surgery - Day of Surgery Patient Examined: Yes Patient H&P Reviewed: Yes Patient is NPO: Yes Beta Blockers: No (contraindicated 2/2 hypotension)
--- NOTE | 2020-05-12 14:36 | Anesthesia Consultation ---
Anesthesia Consult and Med Hx Date of service: 05/12/20 - Airway Anesthetic Teeth Evaluation: Dentures (upper), Edentulous (lower) ROM Head & Neck: Adequate Mental/Hyoid Distance: Adequate Mallampati Class: Class III Intubation Access Assessment: Possibly Difficult - Pulmonary Exam CTA: Yes - Cardiac Exam Cardiac Exam: RRR - Pre-Operative Health Status ASA Pre-Surgery Classification: ASA4 Proposed Anesthetic Plan: MAC - Pulmonary Hx Smoking: Yes (former smoker; remote hx) SOB: Yes (occasional ) Home Oxygen Therapy: No - Cardiovascular System Hx Hypertension: Yes Hx Coronary Artery Disease: Yes (ICMP EF 20%) Hx Angina: Yes Hx Percutaneous Transluminal Coronary Angioplasty (PTCA): Yes (x2; several yrs ago per patient) Hx Cardia Arrhythmia: Yes (LBBB) Hx Pacemaker: No Hx Internal Defibrillator: No - Central Nervous System CVA: No - Gastrointestinal Hx Gastroesophageal Reflux Disease: No - Endocrine Hx Renal Disease: Yes (MANPREET) Hx Liver Disease: No Hx Insulin Dependent Diabetes: No Hx Non-Insulin Dependent Diabetes: No Hx Thyroid Disease: Yes (remote hx thyroid surgery; no meds currently) - Other Systems Hx Cancer: Yes (hx breast ca) - Additional Comments Anesthesia Medical History Comments: [facility] ICMP presenting with acute on chronic heart failure now scheduled for AICD placement. No hx anesthetic complications. R radial arterial line placed in pre-procedure holding area w/ chlorhexadine skin prep, lidocaine 1% skin local, and ultrasound guidance. Tolerated well.
[2020-05-12] MEDS ORDERED: HEPARIN/NS 5000 UNIT/500ML 500 ML IR ONE (15:30)
[2020-05-12] MEDS: DEXTROSE 50% IN WATER (25GM) 50 ML SYRINGE IV ONE ×2 (16:05→16:18)
[2020-05-12] MEDS ORDERED: .VANCOMYCIN VIAL 1,000 MG in SODIUM CHLORIDE IRRI 1000 ML 1,000 ML IRRIGATION ONE (16:21)
[2020-05-12] MEDS: ASPIRIN EC 81 MG TAB PO SCH (19:37)
[2020-05-12] MEDS: traZODone 50 MG TAB PO SCH ×3 (19:37→21:47)
[2020-05-12] MEDS: PANTOPRAZOLE 40 MG TAB PO SCH (19:37)
[2020-05-12] MEDS: RANOLAZINE ER 500 MG TAB 12HR PO SCH ×2 (19:38→21:47)
--- NOTE | 2020-05-12 20:20 | Post Anesthesia Evaluation ---
- Post Anesthesia Evaluation Patient Participated: Yes Airway Patent: Yes Stable Respiratory Function: Yes Nausea/Vomiting: No Temp > 96.8F: Yes Pain Manageable: Yes Adequeate Hydration: Yes Anesthesia Complications: No Block Receding Appropriately: Not Applicable Other Comments: Patient recovered in rn cardiac cath recovery area by myself and LANGUAGE ASSISTANT. At time of transfer, patient was easily arousable to voice, oriented, denied pain and nausea. VS were stable near pre-procedure baseline. SpO2 100% on 1-2L NC and greater >90% on room air. No immediate complications or concerns noted. Transferred back to telemetry w/ monitors by rn cardiac cath staff. Report called to receiving RN.
--- NOTE | 2020-05-12 20:23 | XRay Report ---
CHEST 1 VIEW INDICATION: Pacemaker Postop. COMPARISON: 05/09/2020 FINDINGS: Support devices: New left chest wall device. Right-sided leads are noted. Heart: Stable. Lungs/Pleura: No acute pulmonary or pleural findings. IMPRESSION: 1. No pneumothorax or acute pulmonary findings. Signer Name: Dago Ibarra MD Signed: 05/12/2020 8:19 PM Workstation Name: [id number]
[2020-05-12] MEDS: ceFAZolin/NS 1 GM/50 ML 1 GM/50 ML BAG IV SCH (21:46)
[2020-05-12] MEDS: SERTRALINE 50 MG TAB PO SCH (21:47)
[2020-05-13] MEDS: HEPARIN 5,000 UNIT/1 ML VIAL SUB-Q SCH ×2 (05:23→13:15)
[2020-05-13] MEDS: ceFAZolin/NS 1 GM/50 ML 1 GM/50 ML BAG IV SCH (05:23)
[2020-05-13 05:47] LABS: Hematocrit 32.3 % (30.3-42.9); Hemoglobin 11.2 gm/dl (10.1-14.3); Mean Corpuscular HGB Conc 35 % (30-34); Mean Corpuscular Volume 98 fl (79-97); Platelet Count 124 K/mm3 (140-440); Red Blood Count 3.31 M/mm3 (3.65-5.03); Red Cell Distribution Width 13.1 % (13.2-15.2)
[2020-05-13 06:07] LABS: Calcium 9.1 mg/dL (8.4-10.2)
[2020-05-13] MEDS: traZODone 50 MG TAB PO SCH ×2 (08:14→13:15)
[2020-05-13] MEDS: RANOLAZINE ER 500 MG TAB 12HR PO SCH (09:32)
[2020-05-13] MEDS: PANTOPRAZOLE 40 MG TAB PO SCH (09:32)
[2020-05-13] MEDS: ASPIRIN EC 81 MG TAB PO SCH (09:33)
--- NOTE | 2020-05-13 09:45 | Discharge Summary ---
Providers - Providers Date of Admission: 05/09/20 17:32 Attending physician: JORDY PAZ MD 05/09/20 Consult to Cardiac Rehabilitation [CONS] Routine Reason For Exam: Phase I 05/09/20 17:51 Consult to Physician [CONS] Urgent Comment: Consulting Provider: TONYA NEW Physician Instructions: Reason For Exam: cp, sob, chf, ischemic cardiomyopathy 05/09/20 22:54 Consult to Dietitian/Nutrition [CONS] Routine Physician Instructions: Reason For Exam: Reason for Consult: Poor oral intake 05/11/20 10:12 Physical Therapy Evaluation and Treat [CONS] Routine Comment: Reason For Exam: debility Mode of Transport?: Wheelchair 05/11/20 10:13 Occupational Therapy Evaluate and Treat [CONS] Routine Comment: Reason For Exam: debility Primary care physician: TOBACCO STRIPPER HAND Hospitalization Condition: Stable Hospital course: 84-year-old female with a past medical history of breast cancer status post right-sided mastectomy, CAD s/p PCI, ICMP, HFrEF 15-20%, HTN, HLD, DM, OA, 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 Gil presented with c/o SOB and chest pain since last night. Patient complaining of sharp chest pain which is 3/10 left-sided intermittent substernal chest pressure rating to the neck as detailed worsening dyspnea on exertion and lightheadedness Patient denies cough or cold symptoms, fever, loss of sense of taste or smell. In the emergency room initial cardiac enzyme is negative troponin is 0.010 and BNP is 1757. Patient admitted for evaluation 05/12: Patient clinically stable this morning awaiting for EP evaluation and management is being considered for biventricular pacemaker. INES has been held secondary to hypotension and also renal failure. We will continue to monitor closely. Echocardiogram revealed an ejection fraction of 20%. 05/13: Patient seen and examined post Biventricular Pacemaker. No new complaints, site looks clean, left arm on sling. Will anticipate discharge today if ok with cardiology. BP stablized. resume BB at a lower dose and also ACEI LISINOPRIL AT 5MG PO DAILY (1) Chest pain - Unstable angina EKG shows LLB which is old. Troponin - -ve Continue Aspirin , statins Had a negative stress test August 2019. Cancelled stress test Cardiology evaluation appreciated Echocardiogram pending (2) Acute on chronic systolic CHF (congestive heart failure) proBNP 1757 Holding Lasix due to borderline low blood pressure. Holding Entresto as well due to borderline low blood pressure Metoprolol with holding parameters Echocardiogram Cardiology evaluation Eventually needs ICD or WHEEL CUTTER given severe cardiomyopathy (3) CAD (coronary artery disease) Aspirin Statins Cardiology evaluation Plan stress test performed in August 2019 showed no reversible ischemia as per cardiology (4) Syncope likely orthostatic hypotension Monitor Orthostatic vital signs. Hold BP medications and entresto Echocardiogram pending Cardiology following. She will ultimately need ICD or WHEEL CUTTER given severe cardiomyopathy as per cardiology Monitor on telemetry (4) left bundle branch block (5) Diabetes mellitus (6) Acute kidney injury likely secondary to vasomotor nephropathy not present on admission. Now resolved (7) Hypotension Disposition: DC-01 TO HOME OR SELFCARE Core Measure Documentation - Palliative Care Palliative Care/ Comfort Measures: Not Applicable Exam - Constitutional Vitals: Temp Pulse Resp BP Pulse Ox 99.4 F 88 18 137/48 98 05/13/20 08:20 05/13/20 08:20 05/13/20 08:20 05/13/20 08:20 05/13/20 08:20 Plan Activity: advance as tolerated, fall precautions Diet: low salt Special Instructions: record daily weights, record daily BP diary Follow up with: PRIMARY CAREMD [Primary Care Provider] - 7 Days RON BELCHER MD [Staff Physician] - 7 Days Prescriptions: Pantoprazole [Protonix TAB] 40 mg PO QDAY #30 tablet Metoprolol Succinate [Toprol Xl] 25 mg PO DAILY #30 tab.er.24h Lisinopril [Zestril] 5 mg PO QDAY #30
--- NOTE | 2020-05-13 13:46 | Progress Note ---
Assessment and Plan S/p AICD implantation yesterday. Post-procedure CXR with NAF. Device interrogation this AM showed normal device function. BPs improved today - resume low dose BB and home Entresto with hold parameters. Currently stable cardiac status. Pt may discharge from cardiology standpoint. Follow up in our [place] office for post-op device clinic on 05/25/2020 @ 2:30PM. Follow up in our [place] office with Dr. Gil on 05/25/2020 @ 10:00AM. The patient has been seen in conjunction with Dr. Klarissa Bailey who agrees with the assessment and plan of care. - Patient Problems (1) Syncope Current Visit: Yes Status: Acute (2) Ischemic cardiomyopathy Current Visit: Yes Status: Chronic (3) Chronic HFrEF (heart failure with reduced ejection fraction) Current Visit: Yes Status: Chronic (4) CAD (coronary artery disease) Current Visit: Yes Status: Chronic Qualifiers: Coronary Disease-Associated Artery/Lesion type: [place] artery (5) Stented coronary artery Current Visit: Yes Status: Chronic (6) HTN (hypertension) Current Visit: Yes Status: Chronic Qualifiers: Hypertension type: essential hypertension Qualified Code(s): I10 - Essential (primary) hypertension (7) LBBB (left bundle branch block) Current Visit: Yes Status: Chronic (8) Diabetes mellitus Current Visit: Yes Status: Chronic Subjective Date of service: 05/13/20 Principal diagnosis: Weakness Interval history: pt sitting up at bedside, no current cardiac complaints. S/p AICD implantation yesterday. tele reviewed - VPaced. BPs improved today. Objective Last Vital Signs Temp 99.0 F 05/13/20 11:57 Pulse 87 05/13/20 11:57 Resp 18 05/13/20 11:57 BP 123/76 05/13/20 11:57 Pulse Ox 97 05/13/20 11:57 - Physical Examination General: Appears Well HEENT: Positive: PERRL, EOMI, Normocephaly, Mucus Membranes Moist Neck: Positive: neck supple, trachea midline Cardiac: Positive: Reg Rate and Rhythm, S1/S2 Lungs: Positive: Decreased Breath Sounds Neuro: Positive: Grossly Intact Abdomen: Positive: Unremarkable, Soft, Active Bowel Sounds. Negative: Tender Skin: Positive: Clear. Negative: Rash, Wound Incision: Incision Site (left pectoralis PPM implantation site pressure dressing removed, site covered with telfa and tegaderm dressing, site c/d/i with no bleeding or hematoma noted. ) Musculoskeletal: No Pain, Normal Range of Motion Extremities: Present: upper extr. pulses, lower extr. pulses. Absent: edema - Labs and Meds CBC 05/13/20 Range/Units 05:19 WBC 4.6 (4.5-11.0) K/mm3 RBC 3.31 L (3.65-5.03) M/mm3 Hgb 11.2 (10.1-14.3) gm/dl Hct 32.3 (30.3-42.9) % Plt Count 124 L (140-440) K/mm3 Comprehensive Metabolic Panel 05/13/20 Range/Units 05:19 Sodium 136 L (137-145) mmol/L Potassium 4.5 (3.6-5.0) mmol/L Chloride 102.1 (98-107) mmol/L Carbon Dioxide 27 (22-30) mmol/L BUN 18 H (7-17) mg/dL Creatinine 1.2 (0.6-1.2) mg/dL Glucose 148 H (65-100) mg/dL Calcium 9.1 (8.4-10.2) mg/dL - Imaging and Cardiology EKG: report reviewed, image reviewed Echo: report reviewed (Echo reviewed: EF 20%, Global left ventricular systolic dysfunction severely decreased, mild MR and TR, Left Ventricle impaired relaxation.) - Telemetry EKG Rhythm: Paced - EKG Sinus rhythms and dysrhythmias: sinus rhythm AV and intraventricular conduction: left bundle branch block
--- NOTE | 2020-05-13 14:51 | Post Anesthesia Evaluation ---
- Post Anesthesia Evaluation Patient Participated: Yes Airway Patent: Yes Stable Respiratory Function: Yes Nausea/Vomiting: No Temp > 96.8F: Yes Pain Manageable: No (see below) Adequeate Hydration: Yes Anesthesia Complications: No Other Comments: Patient complains of 8/10 pain but has not requested pain medication. No distress. Encouraged patient to request pain medication as needed to make pain more tolerable. Otherwise, no anesthetic concerns or complications.
[2020-05-13 16:51] VITALS: BP 121/67
[2020-05-13] MEDS ORDERED: SACUBITRIL/VALSARTAN 24-26 MG TAB PO SCH (22:00)
[2020-05-13] MEDS ORDERED: METOPROLOL TARTRATE 25 MG TAB PO SCH (22:00)
== END 2020-05-13 18:11 | disposition home health service (06) | DRG 226 ==
LOC: ED 14:04 → 4A 17:32
PROVIDERS: ADMIT Hospitalist; ATTEND Internal Medicine
PROC: 4A033R1 Measurement of Arterial Saturation, Peripheral, Percutaneous Approach (ICD-10-PCS; 2020-05-09)
PROC: 0JH608Z Insertion of Defibrillator Generator into Chest Subcutaneous Tissue and Fascia, Open Approach (ICD-10-PCS; principal; 2020-05-12)
PROC: 02HK3KZ Insertion of Defibrillator Lead into Right Ventricle, Percutaneous Approach (ICD-10-PCS; 2020-05-12)
PROC: 02H63KZ Insertion of Defibrillator Lead into Right Atrium, Percutaneous Approach (ICD-10-PCS; 2020-05-12)
DX: I25.110 Atherosclerotic heart disease of native coronary artery with unstable angina pectoris (principal); I50.23 Acute on chronic systolic (congestive) heart failure; I11.0 Hypertensive heart disease with heart failure; N17.0 Acute kidney failure with tubular necrosis; I95.1 Orthostatic hypotension; I25.5 Ischemic cardiomyopathy; E78.5 Hyperlipidemia, unspecified; M19.90 Unspecified osteoarthritis, unspecified site; E11.9 Type 2 diabetes mellitus without complications; I44.7 Left bundle-branch block, unspecified; F32.9 Major depressive disorder, single episode, unspecified; E78.00 Pure hypercholesterolemia, unspecified; Z85.3 Personal history of malignant neoplasm of breast; Z90.11 Acquired absence of right breast and nipple; Z79.82 Long term (current) use of aspirin; Z90.710 Acquired absence of both cervix and uterus; Z86.79 Personal history of other diseases of the circulatory system; Z86.73 Personal history of transient ischemic attack (TIA), and cerebral infarction without residual deficits; Z95.818 Presence of other cardiac implants and grafts; Z82.49 Family history of ischemic heart disease and other diseases of the circulatory system; Z87.891 Personal history of nicotine dependence
CPT/HCPCS: 33249; 36415; 36600; 71045; 80048; 80061; 82803; 82962; 83880; 84484; 85007; 85025; 85027; 85379; 85610; 85730; 87641; 90686; 93005; 93306; G0378; A9270-GY; C1721; C1769; C1777; C1892; C1898; J0690; J1170; J1644; J2250; J2270; J2704; J3370; J3490; J7030; J7040; J7050; Q9967

== ENCOUNTER 2020-06-04 09:01 | Emergency (ER) | payer MEDICARE ==
[2020-06-04] MEDS ORDERED: NAPROXEN 500 MG TAB PO NR (09:12)
--- NOTE | 2020-06-04 09:23 | Emergency Department Report ---
ED Extremity Problem HPI - General Chief complaint: Extremity Injury, Lower Stated complaint: RT LEG PAIN Time Seen by Provider: 06/04/20 09:05 Source: patient, EMS Mode of arrival: Wheelchair Limitations: Other - History of Present Illness Initial comments: 84-year-old female with a past medical history of hypertension, hyperlipidemia, arthritis, CHF status post pacemaker placement, peripheral neuropathy and GERD presents to the ER with complaints of right ankle pain. Patient states that she has had right ankle pain for "a while" the past 3 to 4 days has been getting worse. She states that she has been taking her 650 Tylenol but has been helping the past 3 to 4 days. She reports mild swelling to the right ankle. She denies any injury or strenuous activity. She states that the pain is worse with weightbearing, movement and ambulation. She denies any chest pain or shortness of breath or any other associated symptoms at this time. MD Complaint: joint paint -: Gradual, days(s) - Related Data Home Medications Medication Instructions Recorded Confirmed Last Taken Aspirin EC [Halfprin EC] 81 mg PO QDAY 05/09/20 05/09/20 Unknown Furosemide [Lasix TAB] 40 mg PO QDAY 05/09/20 05/09/20 Unknown Nitroglycerin [Nitrostat] 0.4 mg SL Q5M PRN 05/09/20 05/09/20 Unknown Rosuvastatin Calcium [Crestor] 40 mg PO QDAY 05/09/20 05/09/20 Unknown Sertraline [Zoloft] 50 mg PO QHS 05/09/20 05/09/20 Unknown traZODone [Desyrel] 50 mg PO TID 05/09/20 05/09/20 Unknown Previous Rx's Medication Instructions Recorded Last Taken Type Ranolazine [Ranexa] 500 mg PO BID #60 tab.er.12h 09/13/19 Unknown Rx Lisinopril [Zestril] 5 mg PO QDAY #30 05/13/20 Unknown Rx Metoprolol Succinate [Toprol Xl] 25 mg PO DAILY #30 tab.er.24h 05/13/20 Unknown Rx Pantoprazole [Protonix TAB] 40 mg PO QDAY #30 tablet 05/13/20 Unknown Rx Diclofenac 1% [Diclofenac 1% 2 gm TP QID PRN #1 tube 06/04/20 Unknown Rx topical gel] Allergies Allergy/AdvReac Type Severity Reaction Status Date / Time No Known Allergies Allergy Verified 06/04/20 09:02 ED Review of Systems ROS: Stated complaint: RT LEG PAIN Other details as noted in HPI ED Past Medical Hx - Past Medical History Hx Hypertension: Yes Hx CVA: Yes Hx Congestive Heart Failure: Yes Hx Diabetes: Yes Hx Liver Disease: No Hx Renal Disease: Yes (MANPREET) Hx Arthritis: Yes Additional medical history: high cholesterol. CAD - Surgical History Hx Coronary Stent: Yes Hx Pacemaker: Yes Hx Internal Defibrillator: No Hx Breast Surgery: Yes (right mastectomy) Additional Surgical History: hysterectomy - Social History Smoking Status: Never Smoker Substance Use Type: None - Medications Home Medications: Home Medications Medication Instructions Recorded Confirmed Last Taken Type Ranolazine [Ranexa] 500 mg PO BID #60 tab.er.12h 09/13/19 05/09/20 Unknown Rx Aspirin EC [Halfprin EC] 81 mg PO QDAY 05/09/20 05/09/20 Unknown History Furosemide [Lasix TAB] 40 mg PO QDAY 05/09/20 05/09/20 Unknown History Nitroglycerin [Nitrostat] 0.4 mg SL Q5M PRN 05/09/20 05/09/20 Unknown History Rosuvastatin Calcium [Crestor] 40 mg PO QDAY 05/09/20 05/09/20 Unknown History Sertraline [Zoloft] 50 mg PO QHS 05/09/20 05/09/20 Unknown History traZODone [Desyrel] 50 mg PO TID 05/09/20 05/09/20 Unknown History Lisinopril [Zestril] 5 mg PO QDAY #30 05/13/20 Unknown Rx Metoprolol Succinate [Toprol Xl] 25 mg PO DAILY #30 tab.er.24h 05/13/20 Unknown Rx Pantoprazole [Protonix TAB] 40 mg PO QDAY #30 tablet 05/13/20 Unknown Rx Diclofenac 1% [Diclofenac 1% 2 gm TP QID PRN #1 tube 06/04/20 Unknown Rx topical gel] ED Physical Exam - General Limitations: Other ED Course Vital Signs 06/04/20 09:07 Temperature 98.4 F Pulse Rate 74 Respiratory 18 Rate Blood Pressure 146/72 O2 Sat by Pulse 99 Oximetry ED Medical Decision Making - Radiology Data Radiology results: report reviewed Patient: TRE CORRIGAN MR#: [id number] : 1935 Acct:[id number] Age/Sex: 84 / F ADM Date: 06/04/20 Loc: ED Attending Dr: Ordering Physician: DASIA RODRIGUEZ Date of Service: 06/04/20 Procedure(s): XR ankle 2V RT Accession Number(s): [id number] cc: DASIA RODRIGUEZ Fluoro Time In Minutes: RIGHT ANKLE 2 VIEW(S) INDICATION / CLINICAL INFORMATION: Pain COMPARISON: 10/01/2017 FINDINGS: BONES / JOINT(S): No acute fracture or subluxation. Calcific density inferior to the medial malleolus may represent prior trauma, as seen on prior exam. Mild tibiotalar and subtalar arthrosis. The ankle mortise is intact SOFT TISSUES: Enthesopathy noted at the plantar fascia and Achilles tendon insertions. Mild swelling and edema around the ankle. ADDITIONAL FINDINGS: None. Signer Name: Geoff Waters MD Signed: 06/04/2020 9:58 AM Workstation Name: [id number] Transcribed By: Dictated By: GEOFF WATERS Electronically Authenticated By: GEOFF WATERS Signed Date/Time: 06/04/20957 DD/ 5 TD/TT: Patient: TRE CORRIGAN MR#: [id number] : 1935 Acct:[id number] Age/Sex: 84 / F ADM Date: 06/04/20 Loc: ED Attending Dr: Ordering Physician: DASIA RODRIGUEZ Date of Service: 06/04/20 Procedure(s): VL venous duplex LE RT Accession Number(s): [id number] cc: DASIA RODRIGUEZ DUPLEX DOPPLER LOWER EXTREMITY VEINS, RIGHT INDICATION / CLINICAL INFORMATION: calf pain. TECHNIQUE: Duplex doppler imaging was performed through the veins of the right lower extremity using venous compression and other maneuvers. COMPARISON: None available. FINDINGS: RIGHT COMMON FEMORAL VEIN: Negative. RIGHT FEMORAL VEIN: Negative. RIGHT POPLITEAL VEIN: Negative. RIGHT CALF VEINS: Negative. ADDITIONAL FINDINGS: 1.4 x 1.9 cm right popliteal cyst. IMPRESSION: 1. No sonographic evidence for DVT in the right lower extremity. Signer Name: Geoff Waters MD Signed: 06/04/2020 10:35 AM Workstation Name: [id number] Transcribed By: CH Dictated By: GEOFF WATERS Electronically Authenticated By: GEOFF WATERS Signed Date/Time: 06/04/20 1035 DD/ 1034 TD/TT: - Medical Decision Making 84-year-old female with a past medical history of hypertension, hyperlipidemia, arthritis, CHF status post pacemaker placement, peripheral neuropathy and GERD presents to the ER with complaints of right ankle pain. Patient states that she has had right ankle pain for "a while" the past 3 to 4 days has been getting worse. She states that she has been taking her 650 Tylenol but has been helping the past 3 to 4 days. She reports mild swelling to the right ankle. She denies any injury or strenuous activity. She states that the pain is worse with weightbearing, movement and ambulation. She denies any chest pain or shortness of breath or any other associated symptoms at this time. 1057: Venous Doppler negative for DVT. X-ray of the ankle shows nothing acute. Physical exam does not suggest septic joint, compartment syndrome, cellulitis, CHF, acute arterial occlusion or any other emergent issue at this time requiring further work-up, admission or emergent consult. Patient resting comfortably. She is not in any acute distress. She is well-appearing and nontoxic. She is neurologically intact. Vital signs are stable. Discussed suspected diagnosis and treatment plan with patient. Recommend follow-up with primary care doctor and forestry biology specialist. Patient expressed understanding of instructions and agree with plan. Patient was stable at time of discharge. Critical care attestation.: If time is entered above; I have spent that time in minutes in the direct care of this critically ill patient, excluding procedure time. ED Disposition Clinical Impression: Ankle pain, right Disposition: DC-01 TO HOME OR SELFCARE Is pt being admited?: No Does the pt Need Aspirin: No Condition: Stable Instructions: Ankle Pain Additional Instructions: Continue taking the Tylenol 650 as prescribed. Use the Voltaren gel as instructed. Follow-up with the forestry biology specialist and or your primary care doctor especially if your symptoms continue. Elevate your leg as often as possible for the next couple days. Return to the ER if your symptoms changes or worsens in any way. Prescriptions: Diclofenac 1% [Diclofenac 1% topical gel] 2 gm TP QID PRN #1 tube PRN Reason: Pain Referrals: CAROLINA STACY MD [Primary Care Provider] - 3-5 Days Time of Disposition: 10:48
[2020-06-04] MEDS ORDERED: NAPROXEN 500 MG TAB PO STA (09:25)
[2020-06-04 09:41] VITALS: BP 146/72
--- NOTE | 2020-06-04 10:02 | XRay Report ---
RIGHT ANKLE 2 VIEW(S) INDICATION / CLINICAL INFORMATION: Pain COMPARISON: 10/01/2017 FINDINGS: BONES / JOINT(S): No acute fracture or subluxation. Calcific density inferior to the medial malleolus may represent prior trauma, as seen on prior exam. Mild tibiotalar and subtalar arthrosis. The ankle mortise is intact SOFT TISSUES: Enthesopathy noted at the plantar fascia and Achilles tendon insertions. Mild swelling and edema around the ankle. ADDITIONAL FINDINGS: None. Signer Name: Geoff Jordan MD Signed: 06/04/2020 9:58 AM Workstation Name: [id number]
--- NOTE | 2020-06-04 10:39 | Vascular Lab Report ---
DUPLEX DOPPLER LOWER EXTREMITY VEINS, RIGHT INDICATION / CLINICAL INFORMATION: calf pain. TECHNIQUE: Duplex doppler imaging was performed through the veins of the right lower extremity using venous comp ression and other maneuvers. COMPARISON: None available. FINDINGS: RIGHT COMMON FEMORAL VEIN: Negative. RIGHT FEMORAL VEIN: Negative. RIGHT POPLITEAL VEIN: Negative. RIGHT CALF VEINS: Negative. ADDITIONAL FINDINGS: 1.4 x 1.9 cm right popliteal cyst. IMPRESSION: 1. No sonographic evidence for DVT in the right lower extremity. Signer Name: Geoff Jordan MD Signed: 06/04/2020 10:35 AM Workstation Name: [id number]
[2020-06-04] MEDS ORDERED: IBUPROFEN 600 MG TAB PO ONE (10:52)
== END 2020-06-04 11:18 | disposition home or self-care (01) ==
LOC: ED 09:01
DX: M25.571 Pain in right ankle and joints of right foot (principal); M79.89 Other specified soft tissue disorders; I11.0 Hypertensive heart disease with heart failure; I50.9 Heart failure, unspecified; M19.91 Primary osteoarthritis, unspecified site; Z90.710 Acquired absence of both cervix and uterus; Z98.890 Other specified postprocedural states; Z79.899 Other long term (current) drug therapy

== ENCOUNTER 2020-09-25 10:09 | Emergency (ER) | payer MEDICARE, OTHER ==
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
[2020-09-25 11:33] LABS: Eosinophils # (Auto) 0.1 K/mm3 (0.0-0.4); Eosinophils % (Auto) 1.5 % (0.0-4.3); Hematocrit 37.7 % (30.3-42.9); Hemoglobin 12.9 gm/dl (10.1-14.3); Lymphocytes # (Auto) 1.2 K/mm3 (1.2-5.4); Mean Corpuscular HGB Conc 34 % (30-34); Mean Corpuscular Volume 99 fl (79-97); Monocytes # (Auto) 0.3 K/mm3 (0.0-0.8); Monocytes % (Auto) 9.5 % (0.0-7.3); Platelet Count 178 K/mm3 (140-440); Red Blood Count 3.79 M/mm3 (3.65-5.03); Red Cell Distribution Width 12.5 % (13.2-15.2)
[2020-09-25 11:46] LABS: Alanine Aminotransferase 10 units/L (7-56); Albumin 4.1 g/dL (3.9-5); BUN/Creatinine Ratio 23; Blood Urea Nitrogen 21 mg/dL (7-17); Calcium 9.9 mg/dL (8.4-10.2); Hemolysis Index 35
[2020-09-25] MEDS ORDERED: IBUPROFEN 600 MG TAB PO ONE (12:33)
[2020-09-25] MEDS ORDERED: ACETAMINOPHEN 500 MG TAB PO ONE (14:03)
[2020-09-25 15:49] VITALS: BP 141/85
--- NOTE | 2020-10-01 10:37 | Electrocardiograph Report ---
[facility] Test Date: 2020-09-25 Test Time: 10:58:53 Pat Name: TRE CORRIGAN Department: Room: Gender: F Lecturer In Computer Science: NURSE : 1935 Requested By: MOHINDER MCGHEE Order Number: [id number] Reading MD: Richard Maxwell Measurements Intervals [place] Rate: 86 P: 37 MN: 171 QRS: -47 QRSD: 161 T: 113 QT: 427 QTc: 512 Interpretive Statements Sinus rhythm Probable left atrial enlargement Left bundle branch block ST elevation secondary to IVCD No previous ECG available for comparison Electronically Signed On 10-01-2020 10:36:53 EDT by Richard Maxwell
== END 2020-09-25 15:49 | disposition home or self-care (01) ==
LOC: ED 10:09
DX: M54.6 Pain in thoracic spine (principal); R51.9 Headache, unspecified; I11.0 Hypertensive heart disease with heart failure; I50.9 Heart failure, unspecified; E11.9 Type 2 diabetes mellitus without complications; M19.91 Primary osteoarthritis, unspecified site; Z90.710 Acquired absence of both cervix and uterus; Z98.890 Other specified postprocedural states; Z87.891 Personal history of nicotine dependence; Z79.899 Other long term (current) drug therapy; V49.49XA Driver injured in collision with other motor vehicles in traffic accident, initial encounter; Y93.89 Activity, other specified; Y92.410 Unspecified street and highway as the place of occurrence of the external cause; Y99.8 Other external cause status
CPT/HCPCS: 36415; 70450; 71046; 72070; 72100; 72125; 80053; 84484; 85025; 93005

== ENCOUNTER 2020-11-05 09:00 | Observation (INO) | payer MEDICARE, OTHER ==
[2020-11-05] MEDS ORDERED: SODIUM CHLORIDE 0.45% 1000 ML 1,000 ML IV SCH (10:00)
[2020-11-05 10:13] LABS: Basophils % (Auto) 0.2 % (0.0-1.8); Eosinophils # (Auto) 0.1 K/mm3 (0.0-0.4); Hematocrit 36.3 % (30.3-42.9); Hemoglobin 12.4 gm/dl (10.1-14.3); Lymphocytes # (Auto) 1.1 K/mm3 (1.2-5.4); Lymphocytes % (Auto) 40.5 % (13.4-35.0); Mean Corpuscular HGB Conc 34 % (30-34); Mean Corpuscular Volume 100 fl (79-97); Monocytes # (Auto) 0.3 K/mm3 (0.0-0.8); Platelet Count 138 K/mm3 (140-440); Red Blood Count 3.63 M/mm3 (3.65-5.03); Red Cell Distribution Width 12.7 % (13.2-15.2)
--- NOTE | 2020-11-05 10:27 | Anesthesia Day of Surgery ---
Anesthesia Day of Surgery - Day of Surgery Patient Examined: Yes Patient H&P Reviewed: Yes Patient is NPO: Yes
[2020-11-05] MEDS ORDERED: SODIUM CHLORIDE IRRI 1000 ML 1 ML, .VANCOMYCIN VIAL 1,000 MG IR ONE (10:30)
--- NOTE | 2020-11-05 10:30 | Anesthesia Consultation ---
Anesthesia Consult and Med Hx Date of service: 11/05/20 - Airway Anesthetic Teeth Evaluation: Dentures (Upper), Edentulous ROM Head & Neck: Adequate Mental/Hyoid Distance: Adequate Mallampati Class: Class II Intubation Access Assessment: Good - Pre-Operative Health Status ASA Pre-Surgery Classification: ASA4 - Pulmonary Hx Smoking: Yes (former smoker; remote hx) SOB: Yes (occasional ) - Cardiovascular System Hx Hypertension: Yes Hx Coronary Artery Disease: Yes (ICMP EF 20%) Hx Angina: Yes Hx Percutaneous Transluminal Coronary Angioplasty (PTCA): Yes (x2; several yrs ago per patient) Hx Cardia Arrhythmia: Yes (LBBB) Hx Pacemaker: Yes Hx Internal Defibrillator: No - Central Nervous System CVA: No - Gastrointestinal Hx Gastroesophageal Reflux Disease: No - Endocrine Hx Renal Disease: Yes (MANPREET) Hx Liver Disease: No Hx Insulin Dependent Diabetes: No Hx Non-Insulin Dependent Diabetes: No Hx Thyroid Disease: Yes (remote hx thyroid surgery; no meds currently) - Other Systems Hx Alcohol Use: No Hx Substance Use: No Hx Cancer: Yes (hx breast ca) - Additional Comments Anesthesia Medical History Comments: Was here [id number]
[2020-11-05] MEDS ORDERED: LIDOCAINE (1%) 10 MG/1 ML VIAL 20 ML MDV ONE (10:32)
[2020-11-05] MEDS ORDERED: PHENYLEPHRINE/NS 1,000 MCG/10 ML SYRINGE (OR USE) IV ONE (10:32)
[2020-11-05] MEDS ORDERED: SODIUM CHLORIDE IRRI 500 ML 500 ML IR ONE (10:32)
[2020-11-05] MEDS ORDERED: ePHEDrine SULFATE 50 MG/1 ML INJ ONE (10:33)
[2020-11-05] MEDS ORDERED: BUPIVACAINE/PF (0.5%) 5 MG/1 ML 30 ML VIAL INFILTRATI ONE (10:33)
[2020-11-05] MEDS ORDERED: ceFAZolin/Water 2 GM/20 ML 2 GM/20 ML SYRINGE IV ONE (10:33)
[2020-11-05] MEDS ORDERED: KETAMINE/STERILE WATER 50 MG/ML SYRINGE ONE (10:33)
[2020-11-05] MEDS ORDERED: SODIUM CHLORIDE 0.9% 500 ML 500 ML ONE (11:10)
[2020-11-05] MEDS ORDERED: fentaNYL 100 MCG/2 ML INJ ONE (11:15)
[2020-11-05] MEDS ORDERED: MIDAZOLAM 2 MG/2 ML INJ ONE (11:19)
[2020-11-05] MEDS ORDERED: HEPARIN/NS 5000 UNIT/500ML 500 ML IR ONE (11:23)
[2020-11-05] MEDS ORDERED: ONDANSETRON 4 MG/2 ML INJ IV PRN (12:30)
[2020-11-05] MEDS ORDERED: HYDROcodone/ACETAMINOPHEN 5-325 MG TAB PO PRN ×2 (12:30→14:33)
[2020-11-05] MEDS ORDERED: ACETAMINOPHEN 325 MG TAB PO PRN (12:30)
[2020-11-05] MEDS ORDERED: .VANCOMYCIN VIAL 1,000 MG in SODIUM CHLORIDE IRRI 1000 ML 1,000 ML IRRIGATION ONE (13:45)
--- NOTE | 2020-11-05 15:23 | XRay Report ---
CHEST 1 VIEW INDICATION: Pacemaker Postop. COMPARISON: 09/25/2020 FINDINGS: Support devices: The 2-lead pacemaker device has been replaced with a 3-lead pacemaker device which a ppears in good position. Heart: Stable mild cardiomegaly. Stable atherosclerotic disease in the aorta. Lungs/Pleura: No acute air space or interstitial disease. No pneumothorax. Additional findings: None. IMPRESSION: Pacemaker placement. No pneumothorax. Signer Name: Tobin Mcclelland Jr, MD Signed: 11/05/2020 3:19 PM Workstation Name: [id number]
--- NOTE | 2020-11-05 16:13 | Short Stay Summary ---
Short Stay Documentation Date of service: 11/05/20 - History Principal diagnosis: ICD In Situ H&P: obtained from office Past Medical History: CAD, heart failure, hypertension, hyperlipidemia, other (depression) Past Surgical History: Other (ICD implantation) Social history: no smoking, no alcohol abuse - Allergies and Medications Current Medications: Allergies No Known Allergies Allergy (Verified 06/04/20 09:02) Home Medications Medication Instructions Recorded Confirmed Last Taken Type Ranolazine [Ranexa] 500 mg PO BID #60 tab.er.12h 09/13/19 11/05/20 11/04/20 Rx 1 tab Aspirin EC [Halfprin EC] 81 mg PO QDAY 05/09/20 11/05/20 11/04/20 History 1 tab Furosemide [Lasix TAB] 40 mg PO QDAY 05/09/20 11/05/20 11/04/20 History 1 tab Nitroglycerin [Nitrostat] 0.4 mg SL Q5M PRN 05/09/20 11/05/20 Unknown History Rosuvastatin Calcium [Crestor] 40 mg PO QDAY 05/09/20 11/05/20 11/04/20 History 1 tab Sertraline [Zoloft] 50 mg PO QHS 05/09/20 11/05/20 11/04/20 History 1 tab traZODone [Desyrel] 50 mg PO TID 05/09/20 11/05/20 11/04/20 History 50 mg Lisinopril [Zestril] 5 mg PO QDAY #30 05/13/20 11/05/20 Unknown Rx Metoprolol Succinate [Toprol Xl] 25 mg PO DAILY #30 tab.er.24h 05/13/20 11/05/20 11/04/20 Rx 2 tabs Pantoprazole [Protonix TAB] 40 mg PO QDAY #30 tablet 05/13/20 11/05/20 11/04/20 Rx 1 tab Diclofenac 1% [Diclofenac 1% 2 gm TP QID PRN #1 tube 06/04/20 11/05/20 Unknown Rx topical gel] Acetaminophen [Arthritis Pain 650 mg PO TID 11/05/20 11/05/20 11/04/20 History Relief] 1 tab Gabapentin [Neurontin] 300 mg PO Q8HR 11/05/20 11/05/20 11/04/20 History 1 tab Primidone [Mysoline] 50 mg PO DAILY 11/05/20 11/05/20 11/04/20 History 1 tab Sacubitril/Valsartan [Entresto 97 1 each PO BID 11/05/20 11/05/20 11/04/20 History mg-103 mg Tablet] 1 tab Active Medications Hydrocodone Bitart/Acetaminophen (Hydrocodone/Acetaminophen 5-325 Mg Tab) 1 each PO Q4H PRN PRN Reason: Moderate pain (4-6) Atorvastatin Calcium (Atorvastatin 40 Mg Tab) 40 mg PO QHS ERON Furosemide (Furosemide 40 Mg Tab) 40 mg PO QDAY ERON Gabapentin (Gabapentin 300 Mg Cap) 300 mg PO Q8HR ERON Sodium Chloride (Nacl 0.45% 1000 Ml) 1,000 mls @ 50 mls/hr IV DIRECT ERON Cefazolin Sodium (Ancef/Ns 1 Gm/50 Ml) 1 gm in 50 mls @ 100 mls/hr IV Q8H ERON Stop: 11/06/20 05:29 Metoprolol Succinate (Metoprolol Succinate Xl 50 Mg Tab) 50 mg PO QDAY ERON Ondansetron HCl (Ondansetron 4 Mg/2 Ml Inj) 4 mg IV Q8H PRN PRN Reason: Nausea And Vomiting Pantoprazole Sodium (Pantoprazole 40 Mg Tab) 40 mg PO QDAC ERON Primidone (Primidone 50 Mg Tab) 50 mg PO QHS ERON Sertraline HCl (Sertraline 50 Mg Tab) 50 mg PO QHS ERON Sodium Chloride (Sodium Chloride 0.9% 10 Ml Flush Syringe) 10 ml IV BID ERON Sodium Chloride (Sodium Chloride 0.9% 10 Ml Flush Syringe) 10 ml IV PRN PRN PRN Reason: LINE FLUSH Trazodone HCl (Trazodone 50 Mg Tab) 50 mg PO TID ERON - Physical exam General appearance: no acute distress Integumentary: no rash HEENT: Atraumatic, EOMI Lungs: Clear to auscultation Heart: Normal S1, Normal S2, No murmurs Gastrointestinal: normal Extremities: pulses intact, No edema Neurological: Normal speech, Normal tone, Sensation intact - Brief post op/procedure progress note Date of procedure: 11/05/20 Pre-op diagnosis: ICD In Situ Post-op diagnosis: other (BiV ICD In Situ) Surgeon: MARY MEADOWS Estimated blood loss: minimal Pathology: none Condition: stable - Hospital course Hospital course: Pt presented for elective ICD upgrade, which was performed successfully yesterday by Dr. Mary Meadows. Post-procedure device checked revealed normal device function. CXR reviewed - no PTX. Pt is currently stable with no complaints. AICD implantation site pressure dressing removed. Site clean/dry/intact. Pt is stable for discharge. Follow-up for incision check in 7- 10 day ([phone]). - Disposition Condition at discharge: Good Disposition: 01 HOME / SELF CARE / HOMELESS - Discharge Diagnoses (1) ICD (implantable cardioverter-defibrillator), biventricular, in situ Status: Chronic Short Stay Discharge Plan Activity: other (as directed) Diet: low fat, low cholesterol, low salt Wound: per your surgeon's advice Special Instructions: no heavy lifting, keep arm in sling for 72 hours Follow up with: CAROLINA STACY MD [Primary Care Provider] - 7 Days MARY MEADOWS MD [Staff Physician] - 7 Days
--- NOTE | 2020-11-05 16:55 | Post Anesthesia Evaluation ---
- Post Anesthesia Evaluation Patient Participated: Yes Airway Patent: Yes Stable Respiratory Function: Yes Nausea/Vomiting: No Temp > 96.8F: Yes Pain Manageable: Yes Adequeate Hydration: Yes Anesthesia Complications: No Block Receding Appropriately: Not Applicable Patient on Ventilator: No
[2020-11-05 19:49] LABS: BUN/Creatinine Ratio 12; Blood Urea Nitrogen 11 mg/dL (7-17); Calcium 9.1 mg/dL (8.4-10.2); Hemolysis Index 72
[2020-11-05] MEDS ORDERED: ceFAZolin/NS 1 GM/50 ML 1 GM/50 ML BAG IV SCH (21:00)
[2020-11-05] MEDS ORDERED: SERTRALINE 50 MG TAB PO SCH (22:00)
[2020-11-05] MEDS ORDERED: PRIMIDONE 50 MG TAB PO SCH (22:00)
[2020-11-05] MEDS: GABAPENTIN 300 MG CAP PO SCH (23:25)
[2020-11-05] MEDS: traZODone 50 MG TAB PO SCH ×2 (23:30→23:35)
[2020-11-05] MEDS: SACUBITRIL/VALSARTAN 49-51 MG TAB PO SCH (23:47)
[2020-11-06 06:23] LABS: BUN/Creatinine Ratio 15; Blood Urea Nitrogen 12 mg/dL (7-17); Calcium 8.9 mg/dL (8.4-10.2); Hemolysis Index 4
[2020-11-06] MEDS ORDERED: PANTOPRAZOLE 40 MG TAB PO SCH (07:30)
--- NOTE | 2020-11-06 09:20 | Electrocardiograph Report ---
[facility] Test Date: 2020-11-05 Test Time: 10:23:57 Pat Name: TRE CORRIGAN Department: Room: A458 Gender: F [employer] Counter Assistant: BRITTANI : 1935 Requested By: MARY LEVIN Order Number: [id number] Reading MD: Ralf Sol Measurements Intervals [place] Rate: 75 P: 3 [place]: 159 QRS: -45 QRSD: 171 T: 123 QT: 461 QTc: 514 Interpretive Statements Sinus rhythm Left atrial enlargement Left bundle branch block Compared to ECG 09/25/2020 10:58:53 No significant changes Electronically Signed On 11-06-2020 9:19:50 EDT by Ralf Sol
[2020-11-06] MEDS ORDERED: FUROSEMIDE 40 MG TAB PO SCH (10:00)
[2020-11-06] MEDS ORDERED: METOPROLOL SUCCINATE XL 50 MG TAB PO SCH (10:00)
[2020-11-06] MEDS: GABAPENTIN 300 MG CAP PO SCH ×2 (10:04→14:27)
[2020-11-06 12:55] VITALS: BP 108/58
[2020-11-06] MEDS: SACUBITRIL/VALSARTAN 49-51 MG TAB PO SCH (14:27)
[2020-11-06] MEDS: traZODone 50 MG TAB PO SCH (14:27)
== END 2020-11-06 15:00 | disposition home or self-care (01) ==
LOC: CATHLABREC 09:00 → 4A 12:00
PROVIDERS: ADMIT Internal Medicine Cardiovascular Disease; ATTEND Internal Medicine Cardiovascular Disease
DX: I25.10 Atherosclerotic heart disease of native coronary artery without angina pectoris (principal); I11.0 Hypertensive heart disease with heart failure; I50.22 Chronic systolic (congestive) heart failure; E78.5 Hyperlipidemia, unspecified; F32.9 Major depressive disorder, single episode, unspecified; I49.5 Sick sinus syndrome; I42.8 Other cardiomyopathies; N17.9 Acute kidney failure, unspecified; I42.9 Cardiomyopathy, unspecified; I44.7 Left bundle-branch block, unspecified; Z87.891 Personal history of nicotine dependence; Z95.810 Presence of automatic (implantable) cardiac defibrillator; Z79.82 Long term (current) use of aspirin; Z85.3 Personal history of malignant neoplasm of breast
CPT/HCPCS: 33225; 33264; 36415; 71045; 80048; 85025; 93005; 96365; A9270; C1769; C1892; G0378; J0690; J1644; J2250; J2370; J3010; J3370; J3490; J7030; J7040; Q9967

== ENCOUNTER 2021-03-01 18:25 | Emergency (ER) | payer MEDICARE ==
[2021-03-01 19:54] VITALS: BP 141/75
--- NOTE | 2021-03-01 22:59 | Emergency Department Report ---
ED Headache HPI - General Chief Complaint: Headache Stated Complaint: HEADACHE/HIGH BP Time Seen by Provider: 03/01/21 22:51 - History of Present Illness Initial Comments: Patient presents secondary to an acute onset of a left-sided headache. This started about 2:00. She states that she had a headache starting on the left side and that her head felt funny. She states that the pain radiates down the left neck. There is no trauma. She has no blurry vision or double vision. She has not noticed numbness or tingling in the arms or legs. She was scared because she is at home alone and "did not want to alone in that big house." She ultimately decided to come here for evaluation. Patient states that she did have some difficulty walking. She felt somewhat weak all over. She did not notice unilateral weakness. Patient states that this did remind her of her prior stroke. Patient states that she had a stroke years ago and that she had some problems with her left hand as a residual deficit. It should be noted that the headache is left-sided. She did not notice any new strokelike symptoms as far as weakness goes. She did not have a headache with her initial stroke. Allergies/Adverse Reactions: Allergies No Known Allergies Allergy (Verified 03/01/21 19:53) Home Medications: Ambulatory Orders Ranolazine [Ranexa] 500 mg PO BID #60 tab.er.12h 09/13/19 Aspirin EC [Halfprin EC] 81 mg PO QDAY 05/09/20 Furosemide [Lasix TAB] 40 mg PO QDAY 05/09/20 Nitroglycerin [Nitrostat] 0.4 mg SL Q5M PRN 05/09/20 Rosuvastatin Calcium [Crestor] 40 mg PO QDAY 05/09/20 Sertraline [Zoloft] 50 mg PO QHS 05/09/20 traZODone [Desyrel] 50 mg PO TID 05/09/20 Metoprolol Succinate [Toprol Xl] 25 mg PO DAILY #30 tab.er.24h 05/13/20 Pantoprazole [Protonix TAB] 40 mg PO QDAY #30 tablet 05/13/20 Diclofenac 1% [Diclofenac 1% topical gel] 2 gm TP QID PRN #1 tube 06/04/20 Acetaminophen [Arthritis Pain Relief] 650 mg PO TID 11/05/20 Gabapentin 300 mg PO Q8HR 11/05/20 Primidone [Mysoline] 50 mg PO DAILY 11/05/20 Sacubitril/Valsartan [Entresto 97 mg-103 mg Tablet] 1 each PO BID 11/05/20 ED Review of Systems ROS: Stated complaint: HEADACHE/HIGH BP Other details as noted in HPI Comment: All other systems reviewed and negative Constitutional: denies: fever Eyes: denies: vision change ENT: denies: throat pain Respiratory: denies: cough Cardiovascular: denies: chest pain Endocrine: denies: unexplained weight loss Gastrointestinal: denies: abdominal pain Genitourinary: denies: urgency Musculoskeletal: denies: back pain Skin: denies: rash Neurological: as per HPI Hematological/Lymphatic: denies: easy bruising ED Past Medical Hx - Past Medical History Hx Hypertension: Yes Hx CVA: Yes Hx Congestive Heart Failure: Yes Hx Diabetes: Yes Hx Liver Disease: No Hx Renal Disease: Yes (MANPREET) Hx Arthritis: Yes Additional medical history: high cholesterol. CAD. Pacemaker - Surgical History Hx Coronary Stent: Yes Hx Pacemaker: Yes Hx Internal Defibrillator: No Hx Breast Surgery: Yes (right mastectomy) Additional Surgical History: hysterectomy - Family History Family history: hypertension - Social History Smoking Status: Never Smoker - Medications Home Medications: Home Medications Medication Instructions Recorded Confirmed Last Taken Type Ranolazine [Ranexa] 500 mg PO BID #60 tab.er.12h 09/13/19 11/05/20 11/04/20 Rx 1 tab Aspirin EC [Halfprin EC] 81 mg PO QDAY 05/09/20 11/05/20 11/04/20 History 1 tab Furosemide [Lasix TAB] 40 mg PO QDAY 05/09/20 11/05/20 11/04/20 History 1 tab Nitroglycerin [Nitrostat] 0.4 mg SL Q5M PRN 05/09/20 11/05/20 Unknown History Rosuvastatin Calcium [Crestor] 40 mg PO QDAY 05/09/20 11/05/20 11/04/20 History 1 tab Sertraline [Zoloft] 50 mg PO QHS 05/09/20 11/05/20 11/04/20 History 1 tab traZODone [Desyrel] 50 mg PO TID 05/09/20 11/05/20 11/04/20 History 50 mg Metoprolol Succinate [Toprol Xl] 25 mg PO DAILY #30 tab.er.24h 05/13/20 11/05/20 11/04/20 Rx 2 tabs Pantoprazole [Protonix TAB] 40 mg PO QDAY #30 tablet 05/13/20 11/05/20 11/04/20 Rx 1 tab Diclofenac 1% [Diclofenac 1% 2 gm TP QID PRN #1 tube 06/04/20 11/05/20 Unknown Rx topical gel] Acetaminophen [Arthritis Pain 650 mg PO TID 11/05/20 11/05/20 11/04/20 History Relief] 1 tab Gabapentin 300 mg PO Q8HR 11/05/20 11/05/20 11/04/20 History 1 tab Primidone [Mysoline] 50 mg PO DAILY 11/05/20 11/05/20 11/04/20 History 1 tab Sacubitril/Valsartan [Entresto 97 1 each PO BID 11/05/20 11/05/20 11/04/20 History mg-103 mg Tablet] 1 tab ED Physical Exam - General Limitations: No Limitations, Other (Pulse ox noted and normal) General appearance: alert, in no apparent distress, anxious - Head Head exam: Present: atraumatic, normocephalic, normal inspection - Eye Eye exam: Present: normal appearance, EOMI. Absent: scleral icterus - ENT ENT exam: Present: normal exam, normal orophraynx, normal external ear exam - Neck Neck exam: Present: normal inspection. Absent: tenderness, meningismus - Respiratory Respiratory exam: Present: normal lung sounds bilaterally. Absent: respiratory distress - Cardiovascular Cardiovascular Exam: Present: regular rate, normal rhythm - GI/Abdominal GI/Abdominal exam: Present: soft. Absent: distended, tenderness - Extremities Exam Extremities exam: Present: normal capillary refill - Back Exam Back exam: Absent: CVA tenderness (R), CVA tenderness (L) - Neurological Exam Neurological exam: Present: alert, oriented X3, CN II-XII intact, normal gait, reflexes normal, other (No dysdiadochokinesia or pronator drift. NIH score is 0.). Absent: motor sensory deficit - Psychiatric Psychiatric exam: Present: anxious - Skin Skin exam: Present: warm, dry ED Course Vital Signs 03/01/21 19:53 Temperature 99.2 F Pulse Rate 84 Respiratory 18 Rate Blood Pressure 141/75 [Left] O2 Sat by Pulse 98 Oximetry - Reevaluation(s) Reevaluation #1: 03/01/21 22:59 CT was ordered. Old records reviewed. Reevaluation #2: 03/02/21 00:59 CT was noted and the patient was discharged. ED Medical Decision Making - Radiology Data Radiology results: report reviewed - Medical Decision Making Patient presents with a subacute onset of headache. This is not a maximum intensity at the time of onset. It was not thunderclap. She basically states that she was scared to " at home alone." She had said that this was similar to prior stroke, but symptoms do not seem to be stroke related. Patient does not have any new stroke symptoms. She has no meningeal signs. Again, this he adache was not thunderclap or at maximum intensity. I do not believe this represents subarachnoid hemorrhage. She stated that she seemed to be sliding to the floor. She is able to ambulate here without difficulty. Based on her presentation and age, CT was obtained which was unremarkable. Critical Care Time: No Critical care attestation.: If time is entered above; I have spent that time in minutes in the direct care of this critically ill patient, excluding procedure time. ED Disposition Clinical Impression: Acute headache Qualifiers: Headache type: unspecified Intractability: not intractable Qualified Code(s): R51.9 - Headache, unspecified Disposition: 01 HOME / SELF CARE / HOMELESS Is pt being admited?: No Condition: Stable Instructions: Form - Headache Record, General Headache Without Cause, [id number] Additional Instructions: Drink plenty water. Return for problems. Follow-up with your regular doctor for recheck and further management. Continue taking your home medication. Referrals: PRIMARY MD CHIKI [Referring] - 3-5 Days TESFAYE MORAN MD [Staff Physician] - 3-5 Days
--- NOTE | 2021-03-02 00:07 | Cat Scan Report ---
CT HEAD WITHOUT CONTRAST INDICATION / CLINICAL INFORMATION: Acute onset LEFT sided headache. TECHNIQUE: All CT scans at this location are performed using CT dose reduction for ALARA by means of automated exposure control. COMPARISON: CT dated 09/25/2020. FINDINGS: BRAIN PARENCHYMA: No acute intracranial hemorrhage. No evidence of recent infarct. No mass effect or midline shift. White matter chronic small vessel ischemic changes. VENTRICULAR SYSTEM/EXTRA-AXIAL SPACES: Age-related cerebral atrophy. No extra-axial fluid collection. ORBITS: [place] lenses are absent SKELETAL SYSTEM/SOFT TISSUES: Normal bones and soft tissues. PARANASAL SINUSES/MASTOID AIR CELLS: No significant abnormality. ADDITIONAL FINDINGS: None. IMPRESSION: 1. No acute intracranial abnormality. Signer Name: Jewel Powell MD Signed: 03/02/2021 12:03 AM Workstation Name: [id number]
== END 2021-03-02 01:00 | disposition home or self-care (01) ==
LOC: ED 18:25
DX: R51.9 Headache, unspecified (principal); I11.0 Hypertensive heart disease with heart failure; I50.9 Heart failure, unspecified; E11.9 Type 2 diabetes mellitus without complications; M19.90 Unspecified osteoarthritis, unspecified site; Z79.899 Other long term (current) drug therapy
CPT/HCPCS: 70450; 99283

== ENCOUNTER 2021-03-02 10:03 | Emergency (ER) | payer MEDICARE | END 2021-03-03 12:34 | LOC: ED 10:03 | DX: R51.9 Headache, unspecified (principal); Z53.21 Procedure and treatment not carried out due to patient leaving prior to being seen by health care provider ==